=== PATIENT | male | born 1960 | race Caucasian/White ===

== ENCOUNTER 2019-02-26 16:24 | Outpatient (RCR) | payer OTHER, SELFPAY ==
[2019-02-26 17:01] LABS: INR 1.9
== END 2019-05-27 23:59 | disposition home or self-care (01) ==
LOC: CHSLAB 16:24
PROVIDERS: PCP Internal Medicine; Visit Provider Internal Medicine
DX: Z79.01 Long term (current) use of anticoagulants (principal)
CPT/HCPCS: 36415; 85610

== ENCOUNTER 2019-06-28 08:05 | Outpatient (CLI) | payer OTHER, SELFPAY ==
[2019-06-28 08:18] LABS: Basophils Absolute Auto 0.08 K/mm3 (0.00-0.10); Basophils Percent Auto 1.7 % (0.0-1.0); Eosinophils Absolute Auto 0.27 K/mm3 (0.02-0.50); Eosinophils Percent Auto 5.7 % (1.0-6.0); Hematocrit 45.6 % (40.0-54.0); Hemoglobin 15.9 g/dL (14.0-18.0); Immature Granulocyte Absolute 0.01 K/mm3 (0.00-0.00); Immature Granulocyte Percent A 0.2 % (0.0-0.0); Lymphocytes Absolute Auto 1.53 K/mm3 (1.10-4.50); Lymphocytes Percent Auto 32.4 % (18.0-42.0); Mean Corpuscular HGB Conc 34.9 g/dL (32.0-36.0); Mean Corpuscular Volume 91.8 fL (78.0-102.0); Mean Platelet Volume 11.2 fl (8.7-11.0); Monocytes Absolute Auto 0.43 K/mm3 (0.10-0.90); Monocytes Percent Auto 9.1 % (2.0-11.0); Neutrophils Absolute Auto 2.4 K/mm3 (1.7-7.2); Neutrophils Percent Auto 50.9 % (50.0-70.0); Platelet Count Result 224 K/mm3 (150-420); Red Blood Count 4.97 M/mm3 (4.70-6.10); Red Cell Distribution Width 12.6 % (11.6-14.4); White Blood Count 4.7 K/mm3 (4.8-10.8)
[2019-06-28 08:25] LABS: Add Urine Microscopic? NO; Appearance Urine Clear (Clear); Bilirubin Urine Negative (Negative); Blood Urine Negative (Negative); Color Urine Yellow (Yellow); Glucose Urine UA Negative (Negative); Ketones Urine Negative (Negative); Leukocyte Esterase Ur Negative LEU/UL (Negative); Nitrate Urine Negative (Negative); Protein Urine Negative (Negative); Specific Grav Ur 1.025 (1.010-1.020); Urobilinogen Urine 0.2 mg/dL (0.2-1.0)
[2019-06-28 08:34] LABS: INR 1.9; Prothrombin Time 19.4 Seconds (9.64-11.0)
[2019-06-28 08:36] LABS: Hemoglobin A1C 6.8 % (<5.7)
[2019-06-28 08:44] LABS: Creatinine Urine 227.96 mg/dL (40-278)
[2019-06-28 08:49] LABS: MALB Creatinine Ratio 11.2 mg/g (0-30); Microalbumin Urine Random 25.6 mg/L
[2019-06-28 08:50] LABS: BNP 20.8 pg/mL (0-100)
[2019-06-28 09:15] LABS: Alanine Aminotransferase 79 U/L (16-63); Albumin Level 4.1 g/dL (3.4-5.0); Alkaline Phosphatase 52 U/L (46-116); Anion Gap 10.6 mmol/L (7-16); Aspartate Amino Transferase 34 U/L (15-37); Bilirubin,Total 0.4 mg/dL (0.00-1.00); Blood Urea Nitrogen 13 mg/dL (7-18); Calcium 8.8 mg/dL (8.5-10.1); Carbon Dioxide 30 mmol/L (21-32); Chloride 105 mmol/L (98-108); Cholesterol 122 mg/dL (0-200); Creatine Kinase 181 U/L (39-308); Estimated Glomerular Filt Rate > 60; Glucose 134 mg/dL (70-99); HDL Direct 38 mg/dL (40-60); LDL Cholesterol Calculated 67 mg/dL (<130); Osmolality Calculated 294 mOsm/kg (285-295); Potassium 4.6 mmol/L (3.5-5.1); Sodium 141 mmol/L (136-145); Total Protein 7.1 g/dL (6.4-8.2); Triglycerides 84 mg/dL (0-150)
== END 2019-06-28 08:06 | disposition home or self-care (01) ==
LOC: CHSLAB 08:08
PROVIDERS: PCP Internal Medicine; Visit Provider Internal Medicine
DX: R73.01 Impaired fasting glucose (principal); E78.5 Hyperlipidemia, unspecified; I11.0 Hypertensive heart disease with heart failure; I50.9 Heart failure, unspecified
CPT/HCPCS: 36415; 80053; 80061; 81003; 82043; 82550; 83036; 83880; 85025; 85610

== ENCOUNTER 2020-01-09 21:15 | Emergency (ER) | payer OTHER, SELFPAY ==
--- NOTE | ~2020-01-09 | CT_ITS ---
EXAMINATION: CT abdomen pelvis w con DATE: 01/09/2020 22:54 INDICATION: Right lower quadrant abdominal pain. TECHNIQUE: Computed tomography (CT) of the abdomen and pelvis was performed with 100 mL Omnipaque 350 intravenous contrast. Automated exposure control and iterative reconstruction technique were employe d. The dose-length product was 1013.95 mGy-cm. COMPARISON: CT abdomen and pelvis 03/06/2017 FINDINGS: The visualized portions of the lung bases demonstrate mild atelectasis. No pleural effusion . The heart size is normal. No pericardial effusion. The liver, gallbladder, spleen, pancreas, adrena l glands, and left kidney are normal. There is a delayed right-sided contrast nephrogram. There is ed saravanan around the right kidney. There is moderate right hydronephrosis and hydroureter. There is a 4 mm stone at right ureterovesicular junction. There are bilateral inguinal hernias containing fat. The pr ostate is mildly enlarged. There are no dilated loops of bowel. The appendix is normal. There are no pathologically enlarged lymph nodes. There is no free intraperitoneal fluid. There is mild thoracolum bar spondylosis. IMPRESSION: 1. 4 mm stone at right ureterovesicular junction with moderate right hydronephrosis and hydroureter. Reviewed, dictated and finalized at location A. IMPRESSION: 1. 4 mm stone at right ureterovesicular junction with moderate right hydronephr osis and hydroureter.
[2020-01-09 21:20] VITALS: BP 175/91; PULSE 60; RESP 20; TEMP 36.4; O2SAT 98
--- NOTE | 2020-01-09 21:37 | ECG_ITS ---
Measurements Intervals [place] Rate: 60 P: 65 NH: 153 QRS: 110 QRSD: 162 T: -36 QT: 415 QTc: 416 Interpretive Statements SINUS RHYTHM RIGHT AXIS DEVIATION LEFT BUNDLE BRANCH BLOCK ABNORMAL ECG Electronically Signed On 01-10-2020 7:06:43 CDT by Vinh Tafoya D.O.
[2020-01-09] MEDS: SODIUM CHLORIDE 0.9% IV 1,000 ML 999 ML IV CONT (21:46)
[2020-01-09] MEDS: ONDANSETRON INJ 4 MG/2 ML VIAL IV PUSH (21:46)
[2020-01-09] MEDS: MORPHINE SULFATE (*CRX) 4 MG/ML INJ IV PUSH (21:47)
[2020-01-09] MEDS: HYDROmorphone HCL INJ (*CRX) 2 MG/ML VIAL IV PUSH (22:08)
[2020-01-09 22:09] LABS: Basophils Absolute Auto 0.09 K/mm3 (0.00-0.10); Basophils Percent Auto 1.1 % (0.0-1.0); Eosinophils Absolute Auto 0.15 K/mm3 (0.02-0.50); Eosinophils Percent Auto 1.8 % (1.0-6.0); Hematocrit 44.6 % (40.0-54.0); Hemoglobin 14.9 g/dL (14.0-18.0); Immature Granulocyte Absolute 0.03 K/mm3 (0.00-0.00); Immature Granulocyte Percent A 0.4 % (0.0-0.0); Lymphocytes Absolute Auto 1.47 K/mm3 (1.10-4.50); Lymphocytes Percent Auto 17.5 % (18.0-42.0); Mean Corpuscular HGB Conc 33.4 g/dL (32.0-36.0); Mean Corpuscular Hemoglobin 31.4 pg (27.0-31.0); Mean Corpuscular Volume 94.1 fL (78.0-102.0); Monocytes Absolute Auto 0.54 K/mm3 (0.10-0.90); Monocytes Percent Auto 6.4 % (2.0-11.0); Neutrophils Absolute Auto 6.1 K/mm3 (1.7-7.2); Neutrophils Percent Auto 72.8 % (50.0-70.0); Platelet Count Result 223 K/mm3 (150-420); Red Blood Count 4.74 M/mm3 (4.70-6.10); Red Cell Distribution Width 12.6 % (11.6-14.4); White Blood Count 8.4 K/mm3 (4.8-10.8)
[2020-01-09 22:11] VITALS: BP 157/91; PULSE 69; RESP 18; O2SAT 96
[2020-01-09 22:23] LABS: Partial Thromboplastin Time 35.5 SEC (22.3-31.6); Prothrombin Time 20.4 Seconds (9.64-11.0)
[2020-01-09 22:28] LABS: Alanine Aminotransferase 80 U/L (16-63); Albumin Level 4.1 g/dL (3.4-5.0); Alkaline Phosphatase 49 U/L (46-116); Anion Gap 9 mmol/L (8-16); Aspartate Amino Transferase 42 U/L (15-37); Bilirubin,Total 0.4 mg/dL (0.00-1.00); Blood Urea Nitrogen 15 mg/dL (7-18); Calcium 8.8 mg/dL (8.5-10.1); Carbon Dioxide 26 mmol/L (21-32); Chloride 104 mmol/L (98-108); Estimated CRCL calculation 71 ml/min; Estimated Glomerular Filt Rate > 60; Glucose 147 mg/dL (70-99); Lactic Acid Reflex 1.6 mmol/L (0.4-2.0); Lipase 97 U/L (73-393); Osmolality Calculated 291 mOsm/kg (285-295); Sodium 139 mmol/L (136-145)
[2020-01-09 22:30] LABS: Troponin I < 0.02 ng/mL (0.00-0.056)
--- NOTE | 2020-01-09 23:21 | ED.ABDPAIN ---
HPI - Abdominal Pain General Chief Complaint: Abdominal Pain Stated Complaint: abd pain, back pain, groin pain Source: patient Limitations: no limitations History of Present Illness HPI narrative: This is a 59-year-old gentleman that presents with of right lower quadrant abdominal pain and discomfort that started earlier this evening that radiates into the right flank area with no fever or chills there is some nausea with no vomiting, there is currently no chest pain no chest pressure or tightness, no shortness of breath no diarrhea constipation no fever or chills. Pain started earlier this evening at about 5 in the evening and had intensified is a night went on and presented to the emergency department. MD elicited complaint: abdominal pain and flank pain Pertinent past history: none Onset (ago): hour(s) Pain Consistency: intermittent Location: R flank Severity: severe Pain scale (0-10): 10 Quality: sharp Radiation: R flank Migration to: R flank Exacerbating factors: nothing Associated symptoms: nausea Related Data Home Medications Medication Instructions Recorded Confirmed carvedilol 25 mg PO BID 01/09/20 01/09/20 digoxin 250 mcg PO DAILY 01/09/20 01/09/20 lisinopril 40 mg PO BID 01/09/20 01/09/20 omeprazole 20 mg PO BID 01/09/20 01/09/20 spironolactone 25 mg PO DAILY 01/09/20 01/09/20 warfarin 5 mg PO DAILY 01/09/20 01/09/20 Allergies Allergy/AdvReac Type Severity Reaction Status Date / Time No Known Allergies Allergy Unknown Unverified 11/28/02 09:45 Review of Systems Review of Systems: All systems reviewed & are unremarkable except as noted in HPI and below PMFSH Past Medical History Medical History Atrial fibrillation GERD (gastroesophageal reflux disease) HTN (hypertension) Exam Const: General: no acute distress Orientation/consciousness: patient oriented x3 HENMT: Head: normal to inspection Eyes: Conjunctivae: conjunctivae normal Pupils: Equal, round and reactive pupils present EOM: EOMs intact bilaterally Neck: Neck: normal visual inspection, no lymphadenopathy and no meningeal signs Chest: Chest palpation & inspection: normal inspection of the chest Resp: Effort & Inspection: normal respiratory effort Auscultation: clear to auscultation bilaterally Cardio: Rate: regular rate Rhythm: regular rhythm GI: GI Palp: Yes Soft to palpation Other: right lower quadrant pain and tenderness with palpation with radiation into his right flank area : General: Yes CVA tenderness Skin: General skin exam: normal color Rashes: no rashes Neuro: General: patient oriented x3, moves all extremities and no meningeal signs Course Course Emergency Course: reassessment patient after receiving morphine and Dilaudid his pain level is well controlled currently no nausea or vomiting. Discussed with family the finding of a 4 mm UVJ stone with some moderate hydronephrosis, and will administer Flomax and Norvasc. Vital Signs Vital signs: Vital Signs Temperature 36.4 C 01/09/20 21:20 Pulse Rate 60 01/09/20 21:20 Respiratory Rate 20 01/09/20 21:20 Blood Pressure 175/91 H 01/09/20 21:20 Pulse Oximetry 98 01/09/20 21:20 Temperature 36.4 C 01/09/20 21:20 Pulse Rate 69 01/09/20 22:11 Respiratory Rate 18 01/09/20 22:11 Blood Pressure 157/91 H 01/09/20 22:11 Pulse Oximetry 96 01/09/20 22:11 MDM - Abdominal Pain Lab Data Result diagrams: 01/09/20 21:55 01/09/20 21:55 Labs: Lab Results 01/09/20 01/09/20 01/09/20 Range/Units 21:55 21:55 21:55 WBC 8.4 (4.8-10.8) K/mm3 RBC 4.74 (4.70-6.10) M/mm3 Hgb 14.9 (14.0-18.0) g/dL Hct 44.6 (40.0-54.0) % MCV 94.1 (78.0-102.0) fL MCH 31.4 H (27.0-31.0) pg MCHC 33.4 (32.0-36.0) g/dL RDW 12.6 (11.6-14.4) % Plt Count 223 (150-420) K/mm3 MPV 11.0 (8.7-11.0) fl Immature Gran % (Auto) 0.4 H
[2020-01-09] MEDS: TAMSULOSIN HCL 0.4 MG CAPSULE PO (23:24)
[2020-01-09] MEDS: amLODIPine BESYLATE 5 MG TABLET PO (23:24)
[2020-01-09 23:29] VITALS: BP 150/91; PULSE 80; RESP 18; TEMP 36.7; O2SAT 96
== END 2020-01-09 23:40 | disposition home or self-care (01) ==
PROVIDERS: Emergency Provider Emergency Medicine; PCP Internal Medicine
DX: N20.1 Calculus of ureter (principal)
CPT/HCPCS: 36415; 74177; 80053; 83605; 83690; 84484; 85025; 85610; 85730; 93005; 96361; 96374; 96375; 99284; A9270; J1170; J2270; J2405; J7030; Q9965

== ENCOUNTER 2020-01-13 15:45 | Outpatient (RCR) | payer OTHER, SELFPAY ==
[2020-01-13 16:39] LABS: INR 1.4
== END 2020-04-12 23:59 | disposition home or self-care (01) ==
LOC: CHSLAB 15:45
PROVIDERS: PCP Internal Medicine; Visit Provider Internal Medicine
DX: Z79.01 Long term (current) use of anticoagulants (principal)
CPT/HCPCS: 36415; 85610

== ENCOUNTER 2020-01-14 07:02 | Outpatient (CLI) | payer OTHER, SELFPAY ==
[2020-01-14 07:27] LABS: Basophils Absolute Auto 0.11 K/mm3 (0.00-0.10); Basophils Percent Auto 1.7 % (0.0-1.0); Eosinophils Absolute Auto 0.21 K/mm3 (0.02-0.50); Eosinophils Percent Auto 3.3 % (1.0-6.0); Hematocrit 46.2 % (40.0-54.0); Hemoglobin 15.3 g/dL (14.0-18.0); Immature Granulocyte Absolute 0.02 K/mm3 (0.00-0.00); Immature Granulocyte Percent A 0.3 % (0.0-0.0); Lymphocytes Absolute Auto 1.41 K/mm3 (1.10-4.50); Mean Corpuscular HGB Conc 33.1 g/dL (32.0-36.0); Mean Corpuscular Hemoglobin 31.3 pg (27.0-31.0); Mean Corpuscular Volume 94.5 fL (78.0-102.0); Mean Platelet Volume 11.4 fl (8.7-11.0); Monocytes Absolute Auto 0.49 K/mm3 (0.10-0.90); Monocytes Percent Auto 7.7 % (2.0-11.0); Neutrophils Absolute Auto 4.2 K/mm3 (1.7-7.2); Platelet Count Result 217 K/mm3 (150-420); Red Blood Count 4.89 M/mm3 (4.70-6.10); Red Cell Distribution Width 12.4 % (11.6-14.4); White Blood Count 6.4 K/mm3 (4.8-10.8)
[2020-01-14 07:47] LABS: Creatinine Urine 136.95 mg/dL (40-278); MALB Creatinine Ratio 9.4 mg/g (0-30); Microalbumin Urine Random < 13.0 mg/L
[2020-01-14 07:51] LABS: Hemoglobin A1C 5.8 % (<5.7)
[2020-01-14 07:52] LABS: BNP 41.2 pg/mL (0-100)
[2020-01-14 08:22] LABS: Alanine Aminotransferase 56 U/L (16-63); Alkaline Phosphatase 52 U/L (46-116); Anion Gap 7 mmol/L (8-16); Aspartate Amino Transferase 16 U/L (15-37); Bilirubin,Total 0.3 mg/dL (0.00-1.00); Blood Urea Nitrogen 14 mg/dL (7-18); Calcium 8.9 mg/dL (8.5-10.1); Carbon Dioxide 29 mmol/L (21-32); Chloride 104 mmol/L (98-108); Cholesterol 129 mg/dL (0-200); Digoxin 0.7 ng/mL (0.9-2.0); Estimated Glomerular Filt Rate > 60; Glucose 117 mg/dL (70-99); HDL Direct 43 mg/dL (40-60); LDL Cholesterol Calculated 66 mg/dL (<130); Osmolality Calculated 291 mOsm/kg (285-295); Potassium 4.4 mmol/L (3.5-5.1); Prostate Specific Antigen 2.8 ng/mL (< OR = 4.0); Sodium 140 mmol/L (136-145); Total Protein 6.8 g/dL (6.4-8.2); Triglycerides 102 mg/dL (0-150)
== END 2020-01-14 07:03 | disposition home or self-care (01) ==
PROVIDERS: PCP Internal Medicine; Visit Provider Internal Medicine
DX: I50.9 Heart failure, unspecified (principal); E11.9 Type 2 diabetes mellitus without complications; I11.0 Hypertensive heart disease with heart failure; E78.2 Mixed hyperlipidemia; Z12.5 Encounter for screening for malignant neoplasm of prostate
CPT/HCPCS: 36415; 80053; 80061; 80162; 82043; 83036; 83880; 84153; 85025; G0103

== ENCOUNTER 2020-01-14 12:43 | Outpatient (CLI) | payer OTHER, SELFPAY ==
--- NOTE | ~2020-01-14 | US_ITS ---
US retroperitoneal comp 01/14/2020 13:09 Procedure: Ureteral stone Indication: KUB Comparison: 05/21/2012 Findings: Renal echotexture is normal bilaterally without hydronephrosis, contour deforming mass or r enal calculus. The right kidney measures 12 cm and left kidney measures 13 cm. Bladder within normal limits. Impression: 1: Unremarkable renal ultrasound. No stones, masses or hydronephrosis. Reviewed, dictated and finalized at location A. Impression: 1: Unremarkable renal ultrasound. No stones, masses or hydronephrosis.
== END 2020-01-14 12:44 | disposition home or self-care (01) ==
LOC: CHSIMG 12:44
PROVIDERS: PCP Internal Medicine; Visit Provider Internal Medicine
DX: N20.1 Calculus of ureter (principal)
CPT/HCPCS: 76770

== ENCOUNTER 2020-04-23 08:33 | Outpatient (CLI) | payer OTHER, SELFPAY ==
[2020-04-23 09:47] LABS: SARS-CoV-2 Ag Positive (Negative)
== END 2020-04-23 08:34 | disposition home or self-care (01) ==
LOC: CHSLAB 08:35
PROVIDERS: PCP Internal Medicine; Visit Provider Internal Medicine
DX: U07.1 COVID-19 (principal)
CPT/HCPCS: 87426

== ENCOUNTER 2020-05-08 10:42 | Outpatient (CLI) | payer OTHER, SELFPAY ==
--- NOTE | ~2020-05-08 | XR_ITS ---
EXAMINATION: XR chest 2V DATE: 05/08/2020 11:03 INDICATION: Cough. TECHNIQUE: Frontal and lateral views of the chest were obtained. COMPARISON: Chest 2 views 08/06/12 FINDINGS: The chest demonstrates clear lungs without pneumonia, pleural effusion, or pneumothorax. Th e heart size is normal. IMPRESSION: 1. No acute cardiopulmonary disease. Reviewed, dictated and finalized at location A. 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
[2020-05-08 10:56] LABS: Basophils Absolute Auto 0.06 K/mm3 (0.00-0.10); Basophils Percent Auto 1.1 % (0.0-1.0); Eosinophils Absolute Auto 0.16 K/mm3 (0.02-0.50); Eosinophils Percent Auto 2.8 % (1.0-6.0); Hematocrit 43.8 % (40.0-54.0); Hemoglobin 15.1 g/dL (14.0-18.0); Immature Granulocyte Absolute 0.03 K/mm3 (0.00-0.00); Immature Granulocyte Percent A 0.5 % (0.0-0.0); Lymphocytes Absolute Auto 1.33 K/mm3 (1.10-4.50); Lymphocytes Percent Auto 23.4 % (18.0-42.0); Mean Corpuscular HGB Conc 34.5 g/dL (32.0-36.0); Mean Corpuscular Hemoglobin 31.8 pg (27.0-31.0); Mean Corpuscular Volume 92.2 fL (78.0-102.0); Mean Platelet Volume 11.1 fl (8.7-11.0); Monocytes Absolute Auto 0.44 K/mm3 (0.10-0.90); Monocytes Percent Auto 7.7 % (2.0-11.0); Neutrophils Absolute Auto 3.7 K/mm3 (1.7-7.2); Neutrophils Percent Auto 64.5 % (50.0-70.0); Platelet Count Result 236 K/mm3 (150-420); Red Blood Count 4.75 M/mm3 (4.70-6.10); Red Cell Distribution Width 12.4 % (11.6-14.4); White Blood Count 5.7 K/mm3 (4.8-10.8)
[2020-05-08 11:11] LABS: Alanine Aminotransferase 58 U/L (16-63); Albumin Level 3.9 g/dL (3.4-5.0); Alkaline Phosphatase 58 U/L (46-116); Anion Gap 5 mmol/L (8-16); Aspartate Amino Transferase 20 U/L (15-37); Bilirubin,Total 0.4 mg/dL (0.00-1.00); Blood Urea Nitrogen 10 mg/dL (7-18); Calcium 8.8 mg/dL (8.5-10.1); Carbon Dioxide 32 mmol/L (21-32); Chloride 102 mmol/L (98-108); Estimated Glomerular Filt Rate > 60; Glucose 142 mg/dL (70-99); INR 1.9; Osmolality Calculated 289 mOsm/kg (285-295); Potassium 4.5 mmol/L (3.5-5.1); Prothrombin Time 20.7 Seconds (9.50-12.10); Sodium 139 mmol/L (136-145)
[2020-05-08 11:13] LABS: BNP 37 pg/mL (0-100)
== END 2020-05-08 10:43 | disposition home or self-care (01) ==
LOC: CHSLAB 10:44
PROVIDERS: PCP Internal Medicine; Visit Provider Internal Medicine
DX: U07.1 COVID-19 (principal); R05 Cough; I50.9 Heart failure, unspecified; Z79.01 Long term (current) use of anticoagulants
CPT/HCPCS: 36415; 71046; 80053; 83880; 85025; 85610

== ENCOUNTER 2020-09-17 07:30 | Outpatient (CLI) | payer OTHER, SELFPAY ==
[2020-09-17 07:47] LABS: Basophils Absolute Auto 0.09 K/mm3 (0.00-0.10); Basophils Percent Auto 1.6 % (0.0-1.0); Eosinophils Absolute Auto 0.18 K/mm3 (0.02-0.50); Eosinophils Percent Auto 3.3 % (1.0-6.0); Hematocrit 43.8 % (40.0-54.0); Hemoglobin 15.3 g/dL (14.0-18.0); Immature Granulocyte Absolute 0.02 K/mm3 (0.00-0.00); Immature Granulocyte Percent A 0.4 % (0.0-0.0); Lymphocytes Absolute Auto 1.42 K/mm3 (1.10-4.50); Lymphocytes Percent Auto 25.8 % (18.0-42.0); Mean Corpuscular HGB Conc 34.9 g/dL (32.0-36.0); Mean Corpuscular Hemoglobin 32.3 pg (27.0-31.0); Mean Corpuscular Volume 92.6 fL (78.0-102.0); Mean Platelet Volume 11.4 fl (8.7-11.0); Monocytes Absolute Auto 0.46 K/mm3 (0.10-0.90); Monocytes Percent Auto 8.3 % (2.0-11.0); Neutrophils Absolute Auto 3.3 K/mm3 (1.7-7.2); Neutrophils Percent Auto 60.6 % (50.0-70.0); Platelet Count Result 177 K/mm3 (150-420); Red Blood Count 4.73 M/mm3 (4.70-6.10); Red Cell Distribution Width 12.2 % (11.6-14.4); White Blood Count 5.5 K/mm3 (4.8-10.8)
[2020-09-17 07:51] LABS: Add Urine Microscopic? YES; Appearance Urine Clear (Clear); Bilirubin Urine Negative (Negative); Blood Urine Negative (Negative); Color Urine Yellow (Yellow); Glucose Urine UA Trace (Negative); Ketones Urine Negative (Negative); Leukocyte Esterase Ur Negative LEU/UL (Negative); Nitrate Urine Negative (Negative); Protein Urine Negative (Negative); Specific Grav Ur >= 1.030 (1.010-1.020); Urobilinogen Urine 0.2 mg/dL (0.2-1.0); pH Urine 5.5 (5.0-8.0)
[2020-09-17 07:58] LABS: WBC Urine None seen /hpf (0-3)
[2020-09-17 07:59] LABS: Bacteria Urine Trace /hpf; Hemoglobin A1C 6.7 % (<5.7); Mucus Urine Few /lpf; RBC Urine 0-2 /hpf (0-2)
[2020-09-17 08:02] LABS: INR 2.1; Prothrombin Time 21.6 Seconds (9.50-12.10)
[2020-09-17 08:14] LABS: MALB Creatinine Ratio 11.6 mg/g (0-30); Microalbumin Urine Random 18.8 mg/L
[2020-09-17 08:29] LABS: Alanine Aminotransferase 75 U/L (16-63); Albumin Level 3.8 g/dL (3.4-5.0); Alkaline Phosphatase 60 U/L (46-116); Anion Gap 9 mmol/L (8-16); Aspartate Amino Transferase 23 U/L (15-37); Bilirubin,Total 0.3 mg/dL (0.00-1.00); Blood Urea Nitrogen 12 mg/dL (7-18); Carbon Dioxide 25 mmol/L (21-32); Chloride 105 mmol/L (98-108); Cholesterol 125 mg/dL (0-200); Estimated Glomerular Filt Rate > 60; Glucose 167 mg/dL (70-99); HDL Direct 42 mg/dL (40-60); LDL Cholesterol Calculated 54 mg/dL (<130); Osmolality Calculated 291 mOsm/kg (285-295); Potassium 4.2 mmol/L (3.5-5.1); Sodium 139 mmol/L (136-145); Total Protein 6.6 g/dL (6.4-8.2); Triglycerides 144 mg/dL (0-150)
== END 2020-09-17 07:31 | disposition home or self-care (01) ==
LOC: CHSLAB 07:34
PROVIDERS: PCP Internal Medicine; Visit Provider Internal Medicine
DX: I10 Essential (primary) hypertension (principal); E11.65 Type 2 diabetes mellitus with hyperglycemia; I50.9 Heart failure, unspecified; Z79.01 Long term (current) use of anticoagulants
CPT/HCPCS: 36415; 80053; 80061; 81001; 82043; 83036; 85025; 85610

== ENCOUNTER 2020-10-16 08:53 | Outpatient (CLI) | payer OTHER, SELFPAY ==
--- NOTE | 2020-10-16 08:57 | ECHO_ITS ---
Patient Info Name: Fabricio Darnell Age: 60 years : 1960 Gender: Male Ht: 74 in Wt: 210 lbs BSA: 2.24 m2 HR: 79 bpm BP: 118 / 59 mmHg Heart Rhythm: Sinus Rhythm Technical Quality: Fair Exam Date: 10/16/2020 9:06 AM Exam Location: [facility] Patient Status: Outpatient Admit Date: 10/16/2020 Staff Ordering Physician: Jeronimo Mazariegos MD Clinical Asst: Na Harris RDCS Attending Provider: Jeronimo Mazariegos MD Referring Physician: Yair FRIEDMAN; Exam Type: CA echo dop color flow w con Study Info Indications I50.9 - Heart failure, unspecified Complete two-dimensional, color flow and Doppler transthoracic echocardiogram is performed with contrast to opacify the left ventricle and to improve the deliniation of the left ventricle endocardial borders. Strain analysis performed. Contrast/Agitated Saline Contrast/Ag. Saline: Definity Amount: 3.00 ml New IV Access: Antecubital Space and Left Site Condition: No extravasation, Site dressing applied and IV removed History/Risk Factors Hypertension: No Dyslipidemia: No Congenital Heart Disease (CHD): No Peripheral Arterial Disease (PAD): No Myocardial Infarction ([place]): No Chronic Lung Disease: No Obesity: No Renal Disease: No Congestive Heart Failure (CHF): No Cardiomyopathy/LV Systolic Dysfunction: No Diabetes Mellitus: No COPD: No Tobacco Use: Former Cerebrovascular Disease: No DVT Treatment: Warfarin Deep Vein Thrombosis (DVT): None Dialysis: None Frailty Scale (CSHA): 2: Well Cardiac Arrest: No Summary 1. Left ventricular chamber dimension is severely enlarged. 2. Definity contrast administered improved wall motion interpretation. 3. Left ventricular systolic function is severely reduced, estimated at 25-30%. 4. Left ventricular septal wall motion is abnormal with septal motion related to bundle branch block. 5. The left ventricular diastolic function is grade I diastolic dysfunction. 6. E/e' 9 is minimally elevated. 7. Global longitudinal strain is abnormal at -7.1%. 8. Left atrial chamber dimension is moderately enlarged. Left Ventricle Definity contrast administered improved wall motion interpretation. E/e' 9 is minimally elevated. Global longitudinal strain is abnormal at -7.1%. Left ventricular chamber dimension is severely enlarged. Left ventricular systolic function is severely reduced, estimated at 25-30%. Left ventricular septal wall motion is abnormal with septal motion related to bundle branch block. The left ventricular diastolic function is grade I diastolic dysfunction. Right Ventricle Right ventricular chamber dimension is normal. Right ventricular systolic function is normal. Left Atria Left atrial chamber dimension is moderately enlarged. Right Atria Right atrial chamber dimension is normal. Aortic Valve The aortic valve is trileaflet. There is no aortic valve stenosis. There is no aortic valve regurgitation. Pulmonic Valve There is no pulmonic regurgitation. Mitral Valve There is no mitral valve stenosis. There is no mitral valve regurgitation. Tricuspid Valve There is no tricuspid valve regurgitation. Pericardium/Pleural There is no pericardial effusion. Inferior Vena Cava Normal inferior vena cava with >50% collapse upon inspiration consistent with normal right atrial pressure, 5 mmHg. Aorta The aortic
== END 2020-10-16 08:54 | disposition home or self-care (01) ==
PROVIDERS: PCP Internal Medicine; Visit Provider Internal Medicine
DX: I50.9 Heart failure, unspecified (principal)
CPT/HCPCS: C8929

== ENCOUNTER 2020-12-29 10:03 | Observation (INO) | payer OTHER, SELFPAY ==
[2020-12-29] VITALS (38 sets, daily range): BP systolic 137–167; BP diastolic 63–89; PULSE 55–75; RESP 10–25; TEMP 36.6–36.7; O2SAT 97–100; BMI 27.6
--- NOTE | ~2020-12-29 | XR_ITS ---
EXAMINATION: XR chest 2V DATE: 12/29/2020 10:35 INDICATION: Left-sided chest pain TECHNIQUE: PA and lateral views of the chest are obtained. COMPARISON: 05/08/2020 FINDINGS: The lungs are free of acute opacities. There is no pleural effusion or pneumothorax. The ca rdiomediastinal silhouette is normal. There is mild thoracic spondylosis. IMPRESSION: 1. No acute cardiopulmonary abnormality. Reviewed, dictated and finalized at location B.
--- NOTE | ~2020-12-29 | CT_ITS ---
EXAMINATION: CT brain wo con EXAM DATE: 12/29/2020 15:20 INDICATION: Dizziness. TECHNIQUE: Spiral CT of the head was performed without contrast. Axial, coronal and sagittal images were reviewed. The dose-length product (DLP) for this examination was 605.33 mGy-cm. The exposure w as tailored according to patient size, and iterative reconstruction (ASIR) was used as additional dos e reduction technique. There is no prior study for comparison. FINDINGS: There is no acute intraparenchymal hemorrhage. Mild cerebral atrophy. No evidence of intrap arenchymal brain mass lesion. No evidence of acute infarction. There is no mass effect or midline s hift. The ventricles are normal in size. There are no extra-axial collections. There are no acute calvarial fractures. The orbits are unremarkable. Soft tissue is unremarkable. The visualized sinus es and mastoid air cells are well aerated. IMPRESSION: 1. No acute intracranial findings. Reviewed, dictated and finalized at location A.
--- NOTE | ~2020-12-29 | US_ITS ---
EXAMINATION: US carotid duplex BI DATE: 12/30/2020 09:06 INDICATION: Vertigo. TECHNIQUE: Grayscale, color Doppler, and pulsed Doppler images of the cervical carotid arteries were obtained. The degree of vessel stenosis is placed in one of the following categories: normal, <50%, 5 0-69%, >=70% but less than near-occlusion, near-occlusion, or total occlusion. Note that percent sten osis relative to normal distal artery lumen diameter is indirectly measured from velocity measurement s as described by Tono, et al. Radiology 2003; 229:340-346. COMPARISON: None. FINDINGS: RIGHT: The right common carotid artery (CCA) peak systolic velocity (PSV) is 81 cm/s. The right internal car otid artery (ICA) PSV is 69 cm/s. The right ICA end-diastolic velocity (EDV) is 15 cm/s. The right IC A/CCA PSV ratio is 0.8. Grayscale and color Doppler images yield an estimate of <50% diameter reducti on from plaque in the ICA. There is antegrade flow in the right vertebral artery. LEFT: The left CCA PSV is 114 cm/s. The left ICA PSV is 68 cm/s. The left ICA EDV is 7 cm/s. The left ICA/C CA PSV ratio is 0.6. Grayscale and color Doppler images yield an estimate of <50% diameter reduction from plaque in the ICA. There is antegrade flow in the left vertebral artery. IMPRESSION: 1. <50% stenosis in the right internal carotid artery. 2. <50% stenosis in the left internal carotid artery. Reviewed, dictated and finalized at location A.
--- NOTE | ~2020-12-29 | MR_ITS ---
EXAMINATION: MR brain/brain stem wo/w con DATE: 12/30/2020 08:49 INDICATION: Dizziness. Leg numbness. TECHNIQUE: Magnetic resonance imaging (MRI) of the brain and brainstem was performed without and with 19 mL MultiHance intravenous contrast. Sequences included sagittal and axial T1-weighted FSE, axial diffusion-weighted FS EPI, axial T2*-weighted GRE, axial T2-weighted FLAIR Propeller, and axial T2-we ighted Propeller. Postcontrast sequences included axial and coronal T1-weighted FSE. Apparent diffusi on coefficient (ADC) maps were created. COMPARISON: Head CT 12/29/2020 FINDINGS: There is no intracranial hemorrhage, acute infarction, or abnormal intracranial mass lesion . The ventricles are normal in size. There is mild mucosal thickening in the paranasal sinuses. The o rbits are normal. There are trace bilateral mastoid effusions. IMPRESSION: 1. Normal brain. Reviewed, dictated and finalized at location A. IMPRESSION: 1. Normal brain.
--- NOTE | 2020-12-29 10:05 | ECG_ITS ---
Measurements Intervals [place] Rate: 67 P: 66 [place]: 152 QRS: 9 QRSD: 154 T: 1 QT: 393 QTc: 416 Interpretive Statements SINUS RHYTHM WITH SINUS ARRHYTHMIA LEFT BUNDLE BRANCH BLOCK BASELINE ARTIFACT- II, III ABNORMAL ECG Electronically Signed On 12-30-2020 8:45:58 CDT by Vinh Tafoya D.O.
[2020-12-29 10:36] LABS: Basophils Absolute Auto 0.1 K/mm3 (0.0-0.1); Basophils Percent Auto 1.2 % (0.2-1.2); Eosinophils Absolute Auto 0.2 K/mm3 (0-0.3); Eosinophils Percent Auto 2.8 % (0-4.4); Hematocrit 45.4 % (42.0-52.0); Hemoglobin 15.8 g/dL (14.0-18.0); Immature Granulocyte Absolute 0.02 K/mm3 (0.00-0.031); Immature Granulocyte Percent A 0.3 % (0-0.5); Lymphocytes Absolute Auto 1.11 K/mm3 (0.9-3.2); Lymphocytes Percent Auto 18.4 % (18.3-44.2); Mean Corpuscular HGB Conc 34.8 g/dl (32-36); Mean Corpuscular Hemoglobin 32.2 pg (26-34); Mean Corpuscular Volume 92.7 fl (80-100); Mean Platelet Volume 11.1 fl (7.4-10.4); Monocytes Absolute Auto 0.4 K/mm3 (0.1-0.6); Monocytes Percent Auto 6.6 % (2.6-8.5); Neutrophils Absolute Auto 4.3 K/mm3 (1.3-6.7); Neutrophils Percent Auto 70.7 % (45.5-73.1); Platelet Count Result 198 k/mm3 (150-375); Red Cell Distribution Width 12.7 % (11.5-14.5)
[2020-12-29 10:53] LABS: INR 1.7; Partial Thromboplastin Time 35.6 SECONDS (22.3-36.8); Prothrombin Time 19.5 Seconds (11.1-14.7)
[2020-12-29 11:33] LABS: Anion Gap 8 mmol/L (8-16); Blood Urea Nitrogen 14 mg/dL (9-20); Calcium 9.2 mg/dL (8.4-10.2); Carbon Dioxide 24 mmol/L (22-30); Chloride 105 mmol/L (98-107); Estimated CRCL calculation 87 ml/min; Estimated Glomerular Filt Rate > 60; Glucose 195 mg/dL (65-110); Potassium 4.3 mmol/L (3.4-5.0); Sodium 137 mmol/L (137-145)
[2020-12-29 11:44] LABS: Troponin I 0.016 ng/mL (0.000-0.034)
[2020-12-29] MEDS: ASPIRIN 81 MG CHEWABLE TABLET 324 MG PO (12:40)
--- NOTE | 2020-12-29 13:05 | ED.GENADULT ---
HPI - General Adult General Chief complaint: Chest Pain Stated complaint: chest pain Time Seen by Provider: 12/29/20 11:53 History of Present Illness HPI narrative: Patient is a 60-year-old male who presents ER with multiple complaints. Reports around 9 AM he had an episode of dizziness persisted where he felt like he is unsteady. He then sat down and ate and after eating developed some brief chest pain that was sharp and nonradiating. He had no nausea or vomiting. Patient did have some mild shortness of breath. No diaphoresis. Dizziness continues associated with some tingling in his lower extremities. Denies slurred speech or focal weakness in arm or leg. He takes warfarin for atrial fibrillation. He follows with Dr. Wilson for cardiomyopathy with low ejection fraction and is being evaluated for pacemaker/defibrillator at [facility] but has yet to have an appointment. Related Data Home Medications Medication Instructions Recorded Confirmed carvedilol 25 mg PO BID 01/09/20 12/29/20 digoxin 250 mcg PO DAILY 01/09/20 12/29/20 lisinopril 40 mg PO BID 01/09/20 12/29/20 omeprazole 20 mg PO BID 01/09/20 12/29/20 spironolactone 25 mg PO DAILY 01/09/20 12/29/20 warfarin 5 mg PO DAILY 01/09/20 12/29/20 sacubitril-valsartan [Entresto] See Rx Instructions .ROUTE .COMPLEX 12/29/20 12/30/20 Allergies Allergy/AdvReac Type Severity Reaction Status Date / Time No Known Allergies Allergy Unknown Verified 12/29/20 18:29 Review of Systems Review of Systems: All systems reviewed & are unremarkable except as noted in HPI and below Constitutional: Constitutional: Denies chills, Denies fever(s) and Reports weakness ENT: Reports dizziness and Denies nasal congestion Comments: Chronic tinnitus Cardiovascular: Cardiovascular: Denies chest pain and Denies radiating jaw, neck or arm pain Respiratory: Respiratory: Denies cough, Reports dyspnea and Denies wheezing Gastrointestinal: Gastrointestinal: Denies abdominal pain, Denies nausea and Denies vomiting Neurologic: Denies syncope, Denies headache(s) and Denies focal weakness Comments: BLE tingling PMFSH Past Medical History Medical History (Updated 12/30/20 @ 08:20 by Julius Hudson MD) Benign prostatic hyperplasia Borderline diabetes Chronic anticoagulation Gastroesophageal reflux disease Hypertension Kidney stones Nonischemic cardiomyopathy Surgical History Surgical History (Updated 12/30/20 @ 00:01 by Joslyn Aguirre PA-C) History of appendectomy History of basal cell carcinoma excision History of cervical spinal surgery History of esophagogastroduodenoscopy (EGD) History of hernia repair Family History Family History Mother COPD (chronic obstructive pulmonary disease) Father Aneurysm Social History Social History (Updated 12/30/20 @ 00:03 by Joslyn Aguirre PA-C) Social History: Surrogate decision maker: Marie Darnell, spouse. Code status: Full code. Smoking status: Former smoker Tobacco type: cigarettes Alcohol intake: current Drinks per week: 10 Substance use: current Substance use type: marijuana Additional living arrangements comments: The patient lives in [place] with his . 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 Exam Narrative: GENERAL: Well-appearing, well-nourished, and in no acute distress. HEAD: Normocephalic, atraumatic. EYES: PERRL and EOMI. ENT: TMs normal bilaterally with your canals free of cerumen. CHEST: Clear to auscultation. No respiratory distress. HEART: Regular rate and rhythm. Normal peripheral pulses. ABDOMEN: Soft, nontender, nondistended. EXTREMITIES: Normal range of motion. No edema. SKIN: Warm, dry, no rash. NEURO: Alert and oriented x3. Decreased sharp touch to bilateral lower extremities beneath the shins. Normal [id number] testing and no upper or lower extremity drift. Clear speech witho
[2020-12-29 14:35] LABS: Troponin I 0.014 ng/mL (0.000-0.034)
[2020-12-29 17:00] LABS: Troponin I 0.019 ng/mL (0.000-0.034)
--- NOTE | 2020-12-29 17:30 | PM.IMHP ---
H&P: HPI History of Present Illness Date/Time: 12/29/20 17:30 Chief Complaint: Dizziness, chest discomfort. Narrative: This is a very pleasant 60-year-old male with nonischemic cardiomyopathy, borderline diabetes, and hypertension who presented to the emergency department earlier today via private vehicle for evaluation of dizziness and chest discomfort. He was in his usual state of health when he woke this morning and around 08:00 while at work he began to ?feel weird? with dizziness, which sounds more like vertigo as he describes feelings of losing his balance and staggering, though he goes on to say later in the interview that he felt lightheaded. He also reports having intermittent discomfort in his chest that he has a hard time describing though tells me that it frequently feels as though there is of fluttering or bubbling sensation in his mid chest, occasionally pressure-like discomfort. Additionally he reports mild tingling in both of his feet that have been present since this morning. He sees Dr. Wilson and was recently referred to an care transitions nurse at [facility] for consideration of pacemaker/defibrillator insertion, per patient report. He has also been recently started on Entresto due to an ejection fraction of around 25%. Patient reports having a negative nuclear stress test done several weeks ago. He has not had a syncopal episode. No orthopnea or lower extremity edema. He denies fever, chills, and sweats. No nausea or vomiting. He denies auditory visual changes and focal weakness. No facial droop, dysarthria, or dysphagia. Review of Systems Review of Systems: Twelve systems were reviewed with pertinent positives and negatives as per HPI. He denies headache. He has been having some discomfort in the left scapular region that he has a difficult time describing though he thinks it is musculoskeletal in nature. It seems to be worse with movement and sometimes deep inspiration though he is not tender to palpation on exam. Except as documented, all other systems were reviewed and are negative. [facility] Past Medical History Medical History (Updated 12/30/20 @ 00:09 by Joslyn Aguirre PA-C) Benign prostatic hyperplasia Borderline diabetes Chronic anticoagulation Gastroesophageal reflux disease Hypertension Kidney stones Nonischemic cardiomyopathy Surgical History Surgical History (Updated 12/30/20 @ 00:01 by Joslyn Aguirre PA-C) History of appendectomy History of basal cell carcinoma excision History of cervical spinal surgery History of esophagogastroduodenoscopy (EGD) History of hernia repair Family History Family History Mother COPD (chronic obstructive pulmonary disease) Father Aneurysm Social History Social History (Updated 12/30/20 @ 00:03 by Joslyn Aguirre PA-C) Social History: Surrogate decision maker: Marie Darnell, spouse. Code status: Full code. Smoking status: Former smoker Tobacco type: cigarettes Alcohol intake: current Drinks per week: 10 Substance use: current Substance use type: marijuana Additional living arrangements comments: The patient lives in [place] with his . 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 Meds Home Medications and Allergies Home Medications Medication Instructions Recorded Confirmed Type carvedilol 25 mg PO BID 01/09/20 12/29/20 History digoxin 250 mcg PO DAILY 01/09/20 12/29/20 History lisinopril 40 mg PO BID 01/09/20 12/29/20 History omeprazole 20 mg PO BID 01/09/20 12/29/20 History ondansetron HCl [Zofran] 4 mg PO Q6H PRN #10 tablet 01/09/20 12/29/20 Rx oxycodone-acetaminophen [Percocet] 1 tablet PO Q6H PRN #20 tablet 01/09/20 12/29/20 Rx spironolactone 25 mg PO DAILY 01/09/20 12/29/20 History tamsulosin [Flomax] 0.4 mg PO DAILY #7 cap 01/09/20 12/29/20 Rx warfarin 5 mg PO DAILY 01/09/20 12/29/20 History sacubitril-valsartan [Entresto] 49 tablet PO
--- NOTE | 2020-12-29 18:16 | ADMGEN ---
This patient, Fabricio Darnell, was admitted to [facility] Surg Room 311-01. Patient/family oriented to hospital policies and general routines including ID bracelet, bed and alarms, visiting hours, pain management, procedures, bathroom and other care routines, personal items, smoking policy, room service/diet, and visiting hours. Information on how to activate the Rapid Response Team has been discussed. Patient/Family are encouraged to report perceived risks to care and to ask questions if they do not understand what they are told or what they should do.
[2020-12-29 19:21] LABS: Hemoglobin A1C 6.7 % (<5.7)
[2020-12-29] MEDS: HYDROcodone/acetaminophen (*CRX) 5-325 MG TABLET 1 TAB PO (22:28)
[2020-12-30] VITALS (15 sets, daily range): BP systolic 136–150; BP diastolic 74–85; PULSE 59–84; RESP 16–18; TEMP 36.1–36.7; O2SAT 95–98
[2020-12-30 06:56] LABS: Hematocrit 45.3 % (42.0-52.0); Hemoglobin 15.4 g/dL (14.0-18.0); Mean Corpuscular Hemoglobin 31.5 pg (26-34); Mean Corpuscular Volume 92.6 fl (80-100); Mean Platelet Volume 11.8 fl (7.4-10.4); Platelet Count Result 167 k/mm3 (150-375); Red Blood Count 4.89 M/mm3 (4.6-6.20); Red Cell Distribution Width 12.5 % (11.5-14.5); White Blood Count 4.4 K/mm3 (4.5-10.0)
[2020-12-30 07:06] LABS: INR 1.6; Prothrombin Time 18.7 Seconds (11.1-14.7)
[2020-12-30 07:15] LABS: Alanine Aminotransferase 58 U/L (4-50); Albumin Level 4.1 g/dL (3.5-5.1); Alkaline Phosphatase 47 U/L (38-126); Anion Gap 7 mmol/L (8-16); Aspartate Amino Transferase 39 U/L (17-59); Bilirubin,Total 0.8 mg/dL (0.2-1.3); Blood Urea Nitrogen 13 mg/dL (9-20); Carbon Dioxide 27 mmol/L (22-30); Chloride 101 mmol/L (98-107); Estimated CRCL calculation 97 ml/min; Estimated Glomerular Filt Rate > 60; Glucose 118 mg/dL (65-110); Magnesium 1.9 mg/dL (1.6-2.3); Potassium 4.3 mmol/L (3.4-5.0); Sodium 135 mmol/L (137-145)
[2020-12-30 08:24] LABS: Glucose Point of Care 143 mg/dl (65-105)
--- NOTE | 2020-12-30 08:55 | PM.CNCAR ---
Assessment and Plan Assessment and plan (1) Chest discomfort: Code(s): R07.89 - Other chest pain Status: Acute Assessment and Plan: Patient presents with a multitude of symptoms and I wonder if some of this may be from anxiety, perhaps panic attacks. Many of the symptoms I think are noncardiac. Certainly he can have some exertional dyspnea and fatigue due to his cardiomyopathy. No known low blood pressures to account for any dizziness. Some of the of the symptoms are likely benign and noncardiac, augmented by anxiety. However on close questioning he was able to tell me that he does have chest tightness with activity associated with MEEKS. The patient has not had a cardiac catheterization since 2003. His stress test showed a fixed defect with no significant ischemia so we have not pursued that any further but it is, at this point since his sensatins have brought him to the hospital, reasonable to proceed with the heart catheterization. If his INR is reasonable tomorrow (less than 1.9) we can schedule it for tomorrow. Will hold his warfarin. (2) Dizziness: Code(s): R42 - Dizziness and giddiness Status: Acute Assessment and Plan: Dizziness, vertigo, lightheadedness, all likely noncardiac. Neuro workup negative. Check orthostatics. (3) Nonischemic cardiomyopathy: Code(s): I42.8 - Other cardiomyopathies Status: Acute Assessment and Plan: Patient has had a longstanding cardiomyopathy which has worsened recently. Currently working with Entresto, spironolactone, lisinopril and digoxin. Does have a LBBB and has an appointment to see electrophysiology to consider a biventricular ICD later in December. (4) HTN (hypertension): Code(s): I10 - Essential (primary) hypertension Status: Acute Assessment and Plan: Running a little high. (5) Chronic anticoagulation: Code(s): Z79.01 - [facility] (current) use of anticoagulants Status: Acute Assessment and Plan: Chronic anticoagulation for a remote non-STEMI which was thought to be cardioembolic. Sub therapeutic. History of Present Illness History of Present Illness Consult date/time: 12/30/20 08:55 Reason For Visit: stroke symptoms,dizziness,foot numbness Narrative: Date of service 12/30/2020 Mr. Fabricio Darnell is 60-year-old male whom I was asked to see at the request of the hospitalist for complaints of chest pain. He is also admitted with complaints of dizziness and tingling, and other complaints. I follow Mr. Darnell in off my office for his dilated cardiomyopathy and CHF. He has had a dilated cardiomyopathy since 11/08, thought to be viral when he presented with an NSTEMI (thought to be cardioembolic, on anticoagulation since then). His cardiac catheterization and was negative. His EF improved from 15-20% half to 39% but recently has declined again. Echo September 2020 showed EF 25-30%, severe LV enlargement and LV dysfunction, diastolic dysfunction and no significant valve disease. Lexiscan 11/2020 showed a fixed anteroseptal defect, no ischemia, severe LV enlargement and ejection fraction of 33%. His EMMA-inhibitor was changed to Entresto. He has a left bundle branch block and has been referred to Dr. Nando montesinos in [facility] for consideration of a Bi V ICD. He also has hypertension and diabetes. Mr. Darnell was at work yesterday, but not doing anything strenuous, when he started feeling dizzy and shaky. He says the feeling is hard to describe, but he started feeling ?weird? and it was hard to breathe. His skin was crawling, any felt like he could not take a whole breath. He then got shaky and dizzy, loss of balance, and lightheaded. He felt bubbles in his chest and and flutters. His work recommended that he come to the ER. On close questioning, when I asked h
[2020-12-30] MEDS: TAMSULOSIN HCL 0.4 MG CAPSULE PO (09:26)
[2020-12-30] MEDS: DIGOXIN 250 MCG TABLET PO (09:26)
[2020-12-30] MEDS: PANTOPRAZOLE 40 MG TABLET PO ×2 (09:26→16:40)
[2020-12-30] MEDS: carvediloL 25 MG TABLET PO ×2 (09:26→16:40)
[2020-12-30] MEDS: SPIRONOLACTONE 25 MG TABLET PO (09:26)
[2020-12-30 09:47] LABS: Digoxin 0.6 ng/mL (0.8-2.0)
[2020-12-30] MEDS: SACUBITRIL/VALSARTAN 49-51 MG TABLET 1 TABLET PO ×2 (10:06→20:21)
[2020-12-30 12:09] LABS: Glucose Point of Care 129 mg/dl (65-105)
--- NOTE | 2020-12-30 12:15 | PM.IMPN ---
Progress Note: A&P Assessment and Plan (1) Vertigo: Code(s): R42 - Dizziness and giddiness Status: Acute Assessment and Plan: Unclear if true vertigo versus lightheadedness. Plan for brain MRI today Carotid Doppler ultrasound Orthostatic vitals Q shift Fall precaution Continue to monitor symptoms (2) Chest discomfort: Code(s): R07.89 - Other chest pain Status: Acute Assessment and Plan: This is been an ongoing issue for the patient though to his knowledge he has no history of cardiac dysrhythmia. Nuclear stress test done several weeks ago was reportedly unremarkable. Monitor on telemetry overnight. Dr. Wilson consulted. (3) Nonischemic cardiomyopathy: Code(s): I42.8 - Other cardiomyopathies Status: Acute Assessment and Plan: He appears clinically compensated. Continue Entresto, beta-kingston, digoxin, and spironolactone. (4) Hypertension: Code(s): I10 - Essential (primary) hypertension Status: Acute Assessment and Plan: Blood pressures running in the 130 to 150 systolic. Will add amlodipine 5 mg daily and monitor. (5) Chronic anticoagulation: Code(s): Z79.01 - [facility] (current) use of anticoagulants Status: Acute Assessment and Plan: Has been on warfarin for over 20 years due to his cardiomyopathy. He denies history of cardiac dysrhythmia. Continue warfarin and monitor INR. (6) Diabetes mellitus: Code(s): E11.9 - Type 2 diabetes mellitus without complications Status: Acute Assessment and Plan: Random glucose today is 195. Hemoglobin A1c 6.7 This is a new diagnosis for him but he was pre-diabetic in past Initiate metformin 500 mg b.i.d., further outpatient follow-up family living educator consult Additional Plan Code status: Full code DVT prophylaxis: Warfarin Subjective Date/time seen: 12/30/20 12:15 No major events overnight. Hemodynamically stable. Afebrile. No new neurologic signs or symptoms. Review of Systems Review of Systems: All systems reviewed & are unremarkable except as noted in HPI and below Exam Narrative: Gen: Alert, NAD Abd: Soft, NT, ND Heart: RRR Lungs: CTAB Ext: No lower extremity edema Objective Data Vital Signs Vital Signs: Vital Signs - 24 hr 12/29/20 12:30 12/29/20 12:45 12/29/20 12:46 Temperature Pulse Rate 60 60 60 Respiratory Rate 19 16 17 Blood Pressure 138/78 Pulse Oximetry 97 99 98 12/29/20 13:00 12/29/20 13:15 12/29/20 13:30 Temperature Pulse Rate 56 L 66 55 L Respiratory Rate 16 20 16 Blood Pressure Pulse Oximetry 97 99 99 12/29/20 13:45 12/29/20 14:00 12/29/20 14:01 Temperature Pulse Rate 58 L 56 L 67 Respiratory Rate 18 17 16 Blood Pressure 144/84 H Pulse Oximetry 98 98 98 12/29/20 14:15 12/29/20 14:30 12/29/20 14:37 Temperature Pulse Rate 57 L 56 L 62 Respiratory Rate 18 16 Blood Pressure 147/77 H Pulse Oximetry 98 98 12/29/20 14:38 12/29/20 14:39 12/29/20 14:40 Temperature Pulse Rate 57 L 63 69 Respiratory Rate 17 Blood Pressure 147/77 H 153/74 H 150/79 H Pulse Oximetry 98 12/29/20 14:41 12/29/20 14:42 12/29/20 14:46 Temperature Pulse Rate 69 75 65 Respiratory Rate 14 16 25 H Blood Pressure 153/74 H 150/79 H Pulse Oximetry 99 12/29/20 15:00 12/29/20 15:01 12/29/20 15:25 Temperature Pulse Rate 59 L 59 L Respiratory Rate 17 17 15 Blood Pressure 137/82 Pulse Oximetry 98 97 98 12/29/20 15:26 12/29/20 15:30 12/29/20 16:05 Temperature Pulse Rate 58 L 58 L 62 Respiratory Rate 14 15 17 Blood Pressure 148/81 H Pulse Oximetry 100 99 98 12/29/20 16:15 12/29/20 16:30 12/29/20 16:45 Temperature Pulse Rate 62 59 L 62 Respiratory Rate 16 13 18 Blood Pressure Pulse Oximetry 99 99 99 12/29/20 17:18 12/29/20 17:30 12/29/20 18:00 Temperature 97.8 F Pulse Rate 65 64 64 Respiratory Rate 21 H 15 16 Blood Pressure 152/89
[2020-12-30] MEDS: amLODIPine BESYLATE 5 MG TABLET PO (12:58)
--- NOTE | 2020-12-30 15:44 | PC.NURSE ---
On 12/30/20, the student, Leah Champagne, provided care and completed [facility] documentation on this patient. I have reviewed the student's documentation and agree with the findings.
[2020-12-30 16:38] LABS: Glucose Point of Care 115 mg/dl (65-105)
[2020-12-30] MEDS: metFORMIN HCL 500 MG TABLET PO (16:40)
[2020-12-30] MEDS: HYDROcodone/acetaminophen (*CRX) 5-325 MG TABLET 1 TAB PO (20:31)
[2020-12-30 21:21] LABS: Glucose Point of Care 133 mg/dl (65-105)
[2020-12-31] VITALS (16 sets, daily range): BP systolic 118–151; BP diastolic 71–91; PULSE 55–80; RESP 12–17; TEMP 35.8–36.7; O2SAT 95–98
[2020-12-31 07:12] LABS: INR 1.2; Prothrombin Time 15.4 Seconds (11.1-14.7)
--- NOTE | 2020-12-31 08:39 | WPDHPUPDATE1 ---
History and Physical Update Update Date/Time: 12/31/20 08:39 History and Physical has been reviewed, including an updated exam of the patient. INR now 1.2. There are NO changes in the patient's condition. Risks, benefits, and alternatives have been discussed and questions answered. Patient agrees to proceed with procedure.
[2020-12-31 08:40] LABS: Glucose Point of Care 128 mg/dl (65-105)
--- NOTE | 2020-12-31 08:40 | WPDMODSED ---
Moderate Sedation Note-Pt Data Patient Data Diagnosis: Cardiomyopathy, chest pressure and MEEKS, dizziness, palpitations. History of non-STEMI thought to be cardioembolic, treated with warfarin. INR 1.2 today. Present Complaint: exertional chest tightness and MEEKS, stress test showed a fixed defect but patient has ongoing And progressive symptoms. Procedure to be performed/Plan: Conscious sedation Left heart catheterization Possible PCI Allergies Allergy/AdvReac Type Severity Reaction Status Date / Time No Known Allergies Allergy Unknown Verified 12/29/20 18:29 Home Medications Medication Instructions Recorded Confirmed Type carvedilol 25 mg PO BID 01/09/20 12/29/20 History digoxin 250 mcg PO DAILY 01/09/20 12/29/20 History lisinopril 40 mg PO BID 01/09/20 12/29/20 History omeprazole 20 mg PO BID 01/09/20 12/29/20 History ondansetron HCl [Zofran] 4 mg PO Q6H PRN #10 tablet 01/09/20 12/29/20 Rx oxycodone-acetaminophen [Percocet] 1 tablet PO Q6H PRN #20 tablet 01/09/20 12/29/20 Rx spironolactone 25 mg PO DAILY 01/09/20 12/29/20 History tamsulosin [Flomax] 0.4 mg PO DAILY #7 cap 01/09/20 12/29/20 Rx warfarin 5 mg PO DAILY 01/09/20 12/29/20 History sacubitril-valsartan [Entresto] See Rx Instructions .ROUTE .COMPLEX 12/29/20 12/30/20 History Current Medications: Active Medications Acetaminophen (Acetaminophen 325 Mg Tablet) 650 mg PO Q4H PRN PRN Reason: Mild Pain (1-3) or Fever Hydrocodone Bitart/Acetaminophen (Hydrocodone/Acetaminophen (*Crx) 5-325 Mg Tablet) 1 tab PO Q4H PRN PRN Reason: Pain Rated 4-6 Last Admin: 12/30/20 20:31 Dose: 1 tab Documented by: Amlodipine Besylate (Amlodipine Besylate 5 Mg Tablet) 5 mg PO QAM [facility] Last Admin: 12/30/20 12:58 Dose: 5 mg Documented by: Carvedilol (Carvedilol 25 Mg Tablet) [facility] [place] [place] Last Admin: 12/30/20 16:40 Dose: 25 mg Documented by: Dextrose (Dextrose 50% 25 Gm/50 Ml Syringe) 12.5 gm IV PUSH PRN PRN; Protocol PRN Reason: Hypoglycemia Digoxin (Digoxin 250 Mcg Tablet) 250 mcg PO DAILY [facility] Last Admin: 12/30/20 09:26 Dose: 250 mcg Documented by: Glucagon (Glucagon For Inj 1 Mg Vial) 1 mg IM PRN PRN; Protocol PRN Reason: Hypoglycemia Glucose (Glucose Oral Gel 15 Gm Of Glucse In 37.5 Gm Tube) 15 gm PO PRN PRN; Protocol PRN Reason: Hypoglycemia Dextrose (Dextrose 5% 1,000 Ml) 1,000 mls @ 100 mls/hr IVPB PRN PRN; Protocol PRN Reason: Hypoglycemia Sodium Chloride (Normal Saline Iv) 500 mls @ 100 mls/hr IV CONT .Q5H [facility] Insulin Aspart (Insulin Aspart (*Bkc) 100 Units/Ml) 2 - 5 units SUB-Q TIDWM [facility]; Protocol Last Admin: 12/30/20 16:38 Dose: Not Given Documented by: Metformin HCl (Metformin Hcl 500 Mg Tablet) 500 mg PO BIDWM [facility] Last Admin: 12/30/20 16:40 Dose: 500 mg Documented by: Morphine Sulfate (Morphine Sulfate (*Crx) 4 Mg/Ml Inj) 4 mg IV PUSH Q2H PRN PRN Reason: Pain Rated 7-10 Ondansetron HCl (Ondansetron Inj 4 Mg/2 Ml Vial) 4 mg IV PUSH Q4H PRN PRN Reason: Nausea Oxycodone/Acetaminophen (Oxycodone/Acetaminophen (*Crx) 5-325 Mg Tablet) 1 tablet PO Q6H PRN PRN Reason: pain rated 7-10 Pantoprazole Sodium (Pantoprazole 40 Mg Tablet) 40 mg PO BID [facility] Last Admin: 12/30/20 16:40 Dose: 40 mg Documented by: Sacubitril/Valsartan (Sacubitril/Valsartan 49-51 Mg Tablet) 1 tablet PO Q12HR [facility] Last Admin: 12/30/20 20:21 Dose: 1 tablet Documented by: Spironolactone (Spironolactone 25 Mg Tablet) 25 mg PO DAILY [facility] Last Admin: 12/30/20 09:26 Dose: 25 mg Documented by: Tamsulosin HCl (Tamsulosin Hcl 0.4 Mg Capsule) 0.4 mg PO DAILY [facility] Last Admin: 12/30/20 09:26 Dose: 0.4 mg Documented by: Sedation/Anesthesia: No previous sedation/anesthesia problems (including family history). [facility] Past Medical History Medical History Benign prostatic hyperplasia Borderline diabetes Chronic anticoagulation Gastroesophageal reflux disease Hypertension Kidney stones Nonischemic cardio
--- NOTE | 2020-12-31 09:43 | PM.OP ---
Procedure Note - Brief Procedure Note - Brief Date of procedure: 12/31/20 Pre-op diagnosis: stroke symptoms,dizziness,foot numbness Cardiomyopathy Procedure performed: conscious sedation Left heart catheterization Description of procedure: uneventful left heart catheterization right radial approach. Surgeon: Angelica Wilson MD Complications: No immediate complications Condition: stable Disposition: observation Findings: Normal coronary arteries Cardiomyopathy, 20-25%
--- NOTE | 2020-12-31 09:50 | P.PCNCC_ITS ---
Cardiac Cath Procedure Note Date of procedure:: 12/31/20 Performing physician:: Angelica Wilson MD Indication:: cardiomyopathy, chest tightness, fixed defect on stress test Brief clinical history:: Mr Darnell has had a dilated cardiomyopathy since 2003, thought to be viral when he presented with an NSTEMI (thought to be cardioembolic, cath negative, on anticoagulation since then). His EF improved from 15-20% to 39% but recently has declined again. Echo September 2020 showed EF 25-30%, severe LV enlargement and LV dysfunction, diastolic dysfunction and no significant valve disease. Lexiscan 11/2020 showed a fixed anteroseptal defect, no ischemia, severe LV enlargement and ejection fraction of 33%. His EMMA- inhibitor was changed to Entresto. He has a left bundle branch block and has been referred to Dr. Lemons in [facility] for consideration of a Bi V ICD. Patient was admitted with exertional chest tightness and MEEKS and I recommended a cardiac catheterization to re-evaluate for ischemic heart disease. Procedure Procedure performed:: Procedure: 1. Conscious sedation 2. Left heart catheterization 3. Selective Coronary angiography 4. Left ventriculography Sedation/Medication given:: Conscious sedation: The patient has no known prior history of adverse affects of conscious sedation. Oropharynx was clear. The patient is deemed a good candidate for conscious sedation. Conscious sedation began at: 8:43 a.m. Conscious sedation ended at: 9:30 a.m. Total conscious sedation time: 47 minutes Medications: Versed 1 mg, fentanyl 50 mcg IV push The patient had continuous hemodynamic monitoring, and was also continuously monitored by: Abdiel Del Castillo RN The patient tolerated conscious sedation well. Access site:: right radial Estimated blood loss:: 10 cc Procedure note:: Catheters: 5 Gabonese tapered arterial sheath, 5 Gabonese Marzena catheter, 5 Gabonese pigtail catheter Detailed procedure: After informed consent the patient brought to the cardiovascular lab director and the right radial area was prepped and draped in the usual fashion. After conscious sedation and local anesthesia the right radial artery was punctured and cannulated with the arterial sheath using the micropuncture technique. He was given nitroglycerin 250 mcg, were abnormal 2.5 mg and heparin 2500 mg intra- arterially and another 2500 mg of heparin IV. Selective Coronary angiography was performed with the coronary catheter in multiple projections. These were withdrawn. The pigtail catheter was advanced into the central circulation and left ventricle for pressure measurements and left ventriculography which was performed in the DOWD projection. This was withdrawn. Later the arterial sheath was removed and hemostasis was obtained using local pressure with an arterial band. The patient tolerated the procedure well with no complications. Findings:: Pressures: Aortic pressure 110/ 60 and LV pressure 110/10 mmHg Right coronary artery: Widely patent free of disease, dominant Left coronary artery: Widely patent, free of disease Left ventriculography: Severe left ventricular dysfunction, worse in the anterior septal segment, estimated ejection fraction 20-25% . Conclusion:: Normal coronary arteries Cardiomyopathy with severe left ventricular dysfunction, EF 20-25% Recommendations: Continue medical therapy, titrate Entresto, patient has been referred to EP for consideration of a Bi V ICD since he has an underlying left bundle branch block. Will discuss LifeVest while awaiting device implant.
--- NOTE | 2020-12-31 12:10 | PM.DS ---
DS: Admitting Diagnosis Discharge Date 12/31/2020 Admitting Diagnosis Dizziness DS: Discharge Diagnosis Discharge Diagnosis (1) Dizziness: Code(s): R42 - Dizziness and giddiness Status: Acute Assessment and Plan: Poorly described, not consistent with vertigo, not clearly lightheaded but more of an abnormal feeling may be related to stress that happens to him usually at work. Brain MRI and carotid Doppler US negative for significant findings Orthostatic vitals Q shift Fall precaution Continue to monitor symptoms (2) Chest discomfort: Code(s): R07.89 - Other chest pain Status: Acute Assessment and Plan: This is been an ongoing issue for the patient though to his knowledge he has no history of cardiac dysrhythmia. Nuclear stress test done several weeks ago was reportedly unremarkable. Monitor on telemetry overnight. Dr. Wilson consulted. (3) Nonischemic cardiomyopathy: Code(s): I42.8 - Other cardiomyopathies Status: Acute Assessment and Plan: He appears clinically compensated. Continue Entresto, beta-kingston, digoxin, and spironolactone. (4) Hypertension: Code(s): I10 - Essential (primary) hypertension Status: Acute Assessment and Plan: Blood pressures running in the 130 to 150 systolic. Entresto dose increased. 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 He denies history of cardiac dysrhythmia. Continue warfarin and monitor INR. (6) Diabetes mellitus: Code(s): E11.9 - Type 2 diabetes mellitus without complications Status: Acute Assessment and Plan: Random glucose today is 195. Hemoglobin A1c 6.7 This is a new diagnosis for him but he was pre-diabetic in past Would like to work on lifestyle modification, before initiation of medications, and further outpatient follow-up unit educator consult DS: Summary Hospital Course Hospital Course: This is a pleasant 60-year-old gentleman with past medical history of nonischemic cardiomyopathy, hypertension, type 2 diabetes mellitus ( recently diagnosed), BPH, and GERD, who presented to the emergency department on 12/29 for evaluation of dizziness. This is poorly described, not consistent with vertigo, but episodes of feeling unwell while usually at work, where he has to sit down and rest before returning to work, may be related to stress but unclear, not associated with syncope or presyncope. On presentation his vitals showed a blood pressure 149/77 heart rate 70, pulse ox 100% on room air, temperature 97.8?. Blood work showed a hemoglobin 15.8, WBC 6, platelets 198, INR 1.7, hemoglobin A1c 6.7, sodium 137, potassium 4.3, chloride 105, bicarb 24, anion gap 8, creatinine 0.9, BUN 14, calcium 9.2, troponin negative. He was admitted to the hospital for evaluation and monitoring. Chest x-ray showed no abnormalities. CT scan of the head showed no findings to explain his presentation. Brain MRI showed normal brain. Carotid Doppler ultrasound study showed no significant stenosis. He was visited by Cardiology, it was noted that he had history of dilated cardiomyopathy for years, thought to be viral in origin, however based on their evaluation, there was a question about exertional dyspnea to explain these episodes that he has at work, he subsequently underwent coronary angiogram 12/31 which showed normal coronaries, but decreased left ventricular function with an estimated ejection fraction 20-25%. It was recommended that his Entresto dose is increased, and will be set up for a LifeVest fitting in the office with follow up. he was monitored on telemetry in the hospital in showed no significant arrhythmias. His orthostatic vitals were checked and were negative. He did not have any further episodes of dizziness or lightheadedness
--- NOTE | 2020-12-31 12:10 | SUR.PHASEII ---
RIght radial artery puncture site without signs of bleeding or hematoma. All air removed from TR Band at 11:00. TR Band removed at 1200 - dry gauze and tegaderm drsg applied. Report given to ONESIMO Mccarthy. Transferred back to room 311 via stretcher with Andra Stoddard RN.
[2020-12-31] MEDS: carvediloL 25 MG TABLET PO (12:51)
[2020-12-31] MEDS: TAMSULOSIN HCL 0.4 MG CAPSULE PO (12:51)
[2020-12-31] MEDS: SPIRONOLACTONE 25 MG TABLET PO (12:51)
[2020-12-31] MEDS: metFORMIN HCL 500 MG TABLET PO (12:52)
[2020-12-31] MEDS: PANTOPRAZOLE 40 MG TABLET PO (12:52)
[2020-12-31] MEDS: DIGOXIN 250 MCG TABLET PO (12:53)
[2020-12-31 13:14] LABS: Glucose Point of Care 136 mg/dl (65-105)
--- NOTE | 2021-01-01 10:43 | PC.NURSE ---
[facility] pharmacy called regarding entresto. Insurance will not cover more than 2 pills in a [address] Dominguez who had received recommendation from Dr. Wilson regarding medication, so he asked if I could call her. Discuss medication with Dr. Wilson, she wants 1 tab BID for strength of 49/51. [facility] pharmacy notified.
== END 2020-12-31 14:25 | disposition home or self-care (01) ==
LOC: ANHED 13:19 → ANH3MEDSUR 17:35
PROVIDERS: Emergency Medicine; Internal Medicine Cardiovascular Disease; Physician Assistant; Admitting Provider Internal Medicine Nephrology; Emergency Provider Emergency Medicine; PCP Internal Medicine; Visit Provider Internal Medicine Nephrology
PROC: 4A023N7 Measurement of Cardiac Sampling and Pressure, Left Heart, Percutaneous Approach (ICD-10-PCS; CPT 93452; principal; 2020-12-31 08:30)
DX: R07.89 Other chest pain (principal); R42 Dizziness and giddiness; I42.9 Cardiomyopathy, unspecified; I10 Essential (primary) hypertension; E11.9 Type 2 diabetes mellitus without complications; Z79.01 Long term (current) use of anticoagulants; Z87.891 Personal history of nicotine dependence
CPT/HCPCS: 36415; 70450; 70553; 71046; 80048; 80053; 80162; 82948; 83036; 83735; 84484; 85025; 85027; 85610; 85730; 93005; 93458; 93880; 97161; 97165; 99285; A9270; A9577; C1769; C1887; C1894; G0378; J1644; J2250; J3010; J7040

== ENCOUNTER 2021-01-29 09:40 | Outpatient (CLI) | payer OTHER, SELFPAY ==
[2021-01-29 09:56] LABS: Basophils Absolute Auto 0.08 K/mm3 (0.00-0.10); Basophils Percent Auto 1.2 % (0.0-1.0); Eosinophils Absolute Auto 0.17 K/mm3 (0.02-0.50); Eosinophils Percent Auto 2.6 % (1.0-6.0); Hematocrit 46.1 % (40.0-54.0); Hemoglobin 16.1 g/dL (14.0-18.0); Immature Granulocyte Absolute 0.02 K/mm3 (0.00-0.00); Immature Granulocyte Percent A 0.3 % (0.0-0.0); Lymphocytes Absolute Auto 1.63 K/mm3 (1.10-4.50); Lymphocytes Percent Auto 24.9 % (18.0-42.0); Mean Corpuscular HGB Conc 34.9 g/dL (32.0-36.0); Mean Corpuscular Hemoglobin 32.3 pg (27.0-31.0); Mean Corpuscular Volume 92.4 fL (78.0-102.0); Mean Platelet Volume 11.7 fl (8.7-11.0); Monocytes Absolute Auto 0.49 K/mm3 (0.10-0.90); Monocytes Percent Auto 7.5 % (2.0-11.0); Neutrophils Absolute Auto 4.2 K/mm3 (1.7-7.2); Neutrophils Percent Auto 63.5 % (50.0-70.0); Platelet Count Result 197 K/mm3 (150-420); Red Blood Count 4.99 M/mm3 (4.70-6.10); Red Cell Distribution Width 12.2 % (11.6-14.4); White Blood Count 6.5 K/mm3 (4.8-10.8)
[2021-01-29 10:30] LABS: Anion Gap 10 mmol/L (8-16); Blood Urea Nitrogen 16 mg/dL (7-18); Calcium 8.8 mg/dL (8.5-10.1); Carbon Dioxide 27 mmol/L (21-32); Chloride 105 mmol/L (98-108); Estimated Glomerular Filt Rate > 60; Glucose 128 mg/dL (70-99); Osmolality Calculated 297 mOsm/kg (285-295); Potassium 4.2 mmol/L (3.5-5.1); Sodium 142 mmol/L (136-145)
[2021-01-29 10:44] LABS: SARS-CoV-2 RNA PCR Negative (Negative)
== END 2021-01-29 09:41 | disposition home or self-care (01) ==
LOC: CHSLAB 09:43
PROVIDERS: PCP Internal Medicine
DX: I44.7 Left bundle-branch block, unspecified (principal); Z20.822 Contact with and (suspected) exposure to COVID-19
CPT/HCPCS: 36415; 80048; 85025; C9803; U0003; U0005

== ENCOUNTER 2021-02-16 11:58 | Outpatient (RCR) | payer OTHER, SELFPAY ==
[2021-02-16 12:43] LABS: INR 1.9; Prothrombin Time 19.3 Seconds (9.50-12.10)
== END 2021-05-17 23:59 | disposition home or self-care (01) ==
LOC: CHSLAB 11:58
PROVIDERS: PCP Internal Medicine; Visit Provider Internal Medicine
DX: I50.9 Heart failure, unspecified (principal); Z79.01 Long term (current) use of anticoagulants
CPT/HCPCS: 36415; 85610

== ENCOUNTER 2021-03-22 07:37 | Outpatient (CLI) | payer OTHER, SELFPAY ==
[2021-03-22 07:54] LABS: Basophils Absolute Auto 0.09 K/mm3 (0.00-0.10); Basophils Percent Auto 1.6 % (0.0-1.0); Eosinophils Absolute Auto 0.19 K/mm3 (0.02-0.50); Eosinophils Percent Auto 3.4 % (1.0-6.0); Hematocrit 47.9 % (40.0-54.0); Hemoglobin 16.4 g/dL (14.0-18.0); Immature Granulocyte Absolute 0.01 K/mm3 (0.00-0.00); Immature Granulocyte Percent A 0.2 % (0.0-0.0); Lymphocytes Absolute Auto 1.42 K/mm3 (1.10-4.50); Lymphocytes Percent Auto 25.6 % (18.0-42.0); Mean Corpuscular HGB Conc 34.2 g/dL (32.0-36.0); Mean Corpuscular Hemoglobin 31.6 pg (27.0-31.0); Mean Corpuscular Volume 92.3 fL (78.0-102.0); Mean Platelet Volume 11.7 fl (8.7-11.0); Monocytes Absolute Auto 0.46 K/mm3 (0.10-0.90); Monocytes Percent Auto 8.3 % (2.0-11.0); Neutrophils Absolute Auto 3.4 K/mm3 (1.7-7.2); Neutrophils Percent Auto 60.9 % (50.0-70.0); Platelet Count Result 186 K/mm3 (150-420); Red Blood Count 5.19 M/mm3 (4.70-6.10); Red Cell Distribution Width 12.4 % (11.6-14.4); White Blood Count 5.6 K/mm3 (4.8-10.8)
[2021-03-22 08:07] LABS: Add Urine Microscopic? NO; Appearance Urine Clear (Clear); Bilirubin Urine Negative (Negative); Blood Urine Negative (Negative); Color Urine Yellow (Yellow); Glucose Urine UA Negative (Negative); Ketones Urine Negative (Negative); Leukocyte Esterase Ur Negative LEU/UL (Negative); Nitrate Urine Negative (Negative); Protein Urine Negative (Negative); Specific Grav Ur >= 1.030 (1.010-1.020); Urobilinogen Urine 0.2 mg/dL (0.2-1.0); pH Urine 5.5 (5.0-8.0)
[2021-03-22 08:08] LABS: INR 2.2; Prothrombin Time 22.5 Seconds (9.50-12.10)
[2021-03-22 08:17] LABS: Creatinine Urine 198.46 mg/dL (40-278); MALB Creatinine Ratio 18.5 mg/g (0-30); Microalbumin Urine Random 36.9 mg/L
[2021-03-22 08:52] LABS: Alanine Aminotransferase 53 U/L (16-63); Albumin Level 3.9 g/dL (3.4-5.0); Alkaline Phosphatase 61 U/L (46-116); Anion Gap 9 mmol/L (8-16); Aspartate Amino Transferase 19 U/L (15-37); Bilirubin,Total 0.5 mg/dL (0.00-1.00); Blood Urea Nitrogen 13 mg/dL (7-18); Calcium 8.7 mg/dL (8.5-10.1); Carbon Dioxide 28 mmol/L (21-32); Chloride 103 mmol/L (98-108); Cholesterol 141 mg/dL (0-200); Creatine Kinase 128 U/L (39-308); Estimated Glomerular Filt Rate > 60; Glucose 152 mg/dL (70-99); HDL Direct 48 mg/dL (40-60); LDL Cholesterol Calculated 73 mg/dL (<130); Osmolality Calculated 293 mOsm/kg (285-295); Potassium 4.6 mmol/L (3.5-5.1); Prostate Specific Antigen 3.3 ng/mL (< OR = 4.0); Sodium 140 mmol/L (136-145); Total Protein 6.8 g/dL (6.4-8.2); Triglycerides 99 mg/dL (0-150)
== END 2021-03-22 07:38 | disposition home or self-care (01) ==
LOC: CHSLAB 07:39
PROVIDERS: PCP Internal Medicine; Visit Provider Internal Medicine
DX: E11.9 Type 2 diabetes mellitus without complications (principal); Z79.01 Long term (current) use of anticoagulants; E78.5 Hyperlipidemia, unspecified; N39.0 Urinary tract infection, site not specified; Z12.5 Encounter for screening for malignant neoplasm of prostate
CPT/HCPCS: 36415; 80053; 80061; 81003; 82043; 82550; 83036; 84153; 85025; 85610; G0103

== ENCOUNTER 2021-06-28 13:03 | Outpatient (CLI) | payer OTHER, SELFPAY ==
[2021-06-28 13:55] LABS: Alanine Aminotransferase 60 U/L (16-63); Albumin Level 4.2 g/dL (3.4-5.0); Alkaline Phosphatase 52 U/L (46-116); Anion Gap 8 mmol/L (8-16); Aspartate Amino Transferase 22 U/L (15-37); Bilirubin,Total 0.5 mg/dL (0.00-1.00); Blood Urea Nitrogen 14 mg/dL (7-18); Calcium 9.3 mg/dL (8.5-10.1); Carbon Dioxide 30 mmol/L (21-32); Chloride 102 mmol/L (98-108); Digoxin 1.2 ng/mL (0.9-2.0); Estimated Glomerular Filt Rate > 60; Glucose 155 mg/dL (70-99); Osmolality Calculated 293 mOsm/kg (285-295); Potassium 4.5 mmol/L (3.5-5.1); Sodium 140 mmol/L (136-145); Total Protein 6.8 g/dL (6.4-8.2)
== END 2021-06-28 13:04 | disposition home or self-care (01) ==
LOC: CHSLAB 13:07
PROVIDERS: PCP Internal Medicine
DX: I42.0 Dilated cardiomyopathy (principal)
CPT/HCPCS: 36415; 80053; 80162

== ENCOUNTER 2021-07-23 01:27 | Day surgery (SDC) | payer OTHER, SELFPAY ==
[2021-07-19 15:57] VITALS: BMI 26.9
--- NOTE | 2021-07-21 12:53 | PC.NURSE ---
REVIEWED CHART WITH DR. CARLTON ANESTHESIA- NO FURTHER ORDERS, WILL PROCEED WITH PROCEDURE.
--- NOTE | 2021-07-23 08:34 | WPDANESEPPF ---
Anes - Initial Pre Proc Eval Procedure: Operation Date: 07/23/21 10:30 Proposed Procedures p Screening Colonoscopy - Ankit Werner MD Date/Time: 07/23/21 08:34 Surgeon: Ankit Werner MD Pre Op Diagnosis: hx of colon polyps, neoplasm screening Patient Data Age: 61 Gender: M Height: 1.88 m Weight: 95 kg Allergies Allergy/AdvReac Type Severity Reaction Status Date / Time polyethylene glycol Allergy Other Verified 07/23/21 09:40 Home Medications Medication Instructions Recorded Confirmed Type carvedilol 25 mg PO BID 01/09/20 07/23/21 History digoxin 250 mcg PO DAILY 01/09/20 07/23/21 History omeprazole 20 mg PO BID 01/09/20 07/23/21 History spironolactone 25 mg PO QPM 01/09/20 07/23/21 History apixaban [Eliquis] 5 mg PO BID 07/19/21 07/23/21 History metformin 1,000 mg PO QPM 07/19/21 07/19/21 History sacubitril-valsartan [Entresto] 1 tablet PO Q12HR 07/19/21 07/23/21 History Patient hx anesthesia problems: none Family hx anesthesia problems: none Results Review: All pre-operative results and documents have been reviewed as part of the pre-operative evaluation. [facility] Past Medical History Medical History (Updated 07/23/21 @ 08:39 by Selvin Doty MD) Atrial fibrillation Benign prostatic hyperplasia Borderline diabetes CAD (coronary artery disease) Chronic anticoagulation Diabetes mellitus Gastroesophageal reflux disease GERD (gastroesophageal reflux disease) HTN (hypertension) Hx of myocardial infarction Hypertension Kidney stones Nonischemic cardiomyopathy ef 20-25% Pacemaker Vertigo Surgical History Surgical History (Updated 07/23/21 @ 08:39 by Selvin Doty MD) AICD (automatic cardioverter/defibrillator) present History of appendectomy History of basal cell carcinoma excision History of cervical spinal surgery History of esophagogastroduodenoscopy (EGD) History of hernia repair Family History Family History Mother COPD (chronic obstructive pulmonary disease) Father Aneurysm Social History Social History (Updated 12/30/20 @ 15:23 by Angelica Wilson MD) Social History: Surrogate decision maker: Marie Darnell, spouse. Code status: Full code. 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 Living arrangements: with family Additional living arrangements comments: The patient lives in [place] with his . 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 Spiritual care concerns: No Anes - Eval Final PreProcedure Day of Procedure 07/23/21 08:34 Patient weight: overweight Heart: regular rate and rhythm Lungs: clear to auscultation and normal air movement Airway: Mallampati scale class II Neurological: alert and oriented Last oral intake: >/= 8 hours ASA classification: IV Emergent: no Anesthetic plan: proceed Anesthesia type and monitoring: general GIVS Results Review: All pre-operative results and documents have been reviewed as part of the pre-operative evaluation. Informed Consent: The patient's anesthetic plan and its attendant risks and benefits were discussed with the patient/family/POA. Questions were solicited and answers provided to the satisfaction of the patient/family/POA.
[2021-07-23 09:19] VITALS: BP 96/50; PULSE 43; RESP 18; TEMP 36.1; O2SAT 96
[2021-07-23] MEDS: LACTATED RINGERS 1,000 ML 150 ML IV CONT (09:35)
[2021-07-23 09:36] LABS: Glucose Point of Care 161 mg/dl (65-105)
--- NOTE | 2021-07-23 09:44 | PM.HPGS ---
History of Present Illness History of Present Illness Consent: Risks, benefits, and alternatives have been discussed and questions answered. Patient agrees to proceed with procedure. Chief complaint: hx of colon polyps, neoplasm screening Narrative: Fabricio Darnell is a 61 year old male here for screening colonoscopy, last one about 13 years ago. Review of Systems Constitutional: Constitutional: Denies headache(s) and Denies weakness Eyes: Eyes: Denies blurry vision ENT: Reports Normal hearing present, Denies headache(s) and Denies neck pain Cardiovascular: Cardiovascular: Denies chest pain and Denies dyspnea Respiratory: Respiratory: Denies dyspnea Gastrointestinal: Gastrointestinal: Reports no additional gastrointestinal complaints Genitourinary: Genitourinary: Denies dysuria Musculoskeletal: Musculoskeletal: Denies neck pain Integumentary/Breasts: Skin/Breast: Denies dry skin Neurologic: Reports Normal hearing present, Denies headache(s) and Denies weakness Psychiatric: Psychiatric: Denies anxiety Endocrine: Endocrine: Denies change in body appearance Hematologic/Lymphatic: Hematologic/Lymphatic: Denies easy bleeding Allergic/Immunologic: Allergic/Immunologic: Denies urticaria PMFSH Past Medical History Medical History (Updated 07/23/21 @ 09:46 by Ankit Werner MD) Atrial fibrillation Benign prostatic hyperplasia Borderline diabetes CAD (coronary artery disease) Chronic anticoagulation Colon cancer screening Diabetes mellitus Gastroesophageal reflux disease GERD (gastroesophageal reflux disease) HTN (hypertension) Hx of myocardial infarction Hypertension Kidney stones Nonischemic cardiomyopathy ef 20-25% Pacemaker Vertigo Surgical History Surgical History (Updated 07/23/21 @ 08:39 by Selvin Doty MD) AICD (automatic cardioverter/defibrillator) present History of appendectomy History of basal cell carcinoma excision History of cervical spinal surgery History of esophagogastroduodenoscopy (EGD) History of hernia repair Family History Family History Mother COPD (chronic obstructive pulmonary disease) Father Aneurysm Social History Social History (Updated 12/30/20 @ 15:23 by Angelica Wilson MD) Social History: Surrogate decision maker: Marie Darnell, spouse. Code status: Full code. 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 Living arrangements: with family Additional living arrangements comments: The patient lives in [place] with his . 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 Spiritual care concerns: No Meds Home Medications and Allergies Home Medications Medication Instructions Recorded Confirmed Type carvedilol 25 mg PO BID 01/09/20 07/23/21 History digoxin 250 mcg PO DAILY 01/09/20 07/23/21 History omeprazole 20 mg PO BID 01/09/20 07/23/21 History spironolactone 25 mg PO QPM 01/09/20 07/23/21 History apixaban [Eliquis] 5 mg PO BID 07/19/21 07/23/21 History metformin 1,000 mg PO QPM 07/19/21 07/19/21 History sacubitril-valsartan [Entresto] 1 tablet PO Q12HR 07/19/21 07/23/21 History Allergies Allergy/AdvReac Type Severity Reaction Status Date / Time polyethylene glycol Allergy Other Verified 07/23/21 09:40 Vital Signs Vital Signs - 24 hr 07/23/21 09:19 Temperature 97 F L Pulse Rate 43 L Respiratory Rate 18 Blood Pressure 96/50 L Pulse Oximetry 96 Exam Const: General: comfortable and no acute distress HENMT: General nose exam: Normal nares present Eyes: General: appearance
[2021-07-23 10:11] VITALS: BP 88/60; PULSE 70; RESP 14; O2SAT 97
[2021-07-23 10:21] VITALS: BP 96/62; PULSE 70; RESP 14; O2SAT 99
[2021-07-23 10:31] VITALS: BP 98/67; PULSE 71; RESP 14; O2SAT 99
== END 2021-07-23 10:41 | disposition home or self-care (01) ==
PROVIDERS: PCP Internal Medicine; Visit Provider Internal Medicine Gastroenterology
PROC: 0DJD8ZZ Inspection of Lower Intestinal Tract, Via Natural or Artificial Opening Endoscopic (ICD-10-PCS; CPT 45378; principal; 2021-07-23 10:30)
DX: Z12.11 Encounter for screening for malignant neoplasm of colon (principal); K57.30 Diverticulosis of large intestine without perforation or abscess without bleeding; K64.8 Other hemorrhoids; Z86.010 Personal history of colon polyps; I48.91 Unspecified atrial fibrillation; I25.10 Atherosclerotic heart disease of native coronary artery without angina pectoris; I10 Essential (primary) hypertension; I25.2 Old myocardial infarction; E11.9 Type 2 diabetes mellitus without complications; N40.0 Benign prostatic hyperplasia without lower urinary tract symptoms; I42.8 Other cardiomyopathies; K21.9 Gastro-esophageal reflux disease without esophagitis; Z95.810 Presence of automatic (implantable) cardiac defibrillator; Z87.891 Personal history of nicotine dependence; F12.90 Cannabis use, unspecified, uncomplicated; Z79.01 Long term (current) use of anticoagulants; Z79.84 Long term (current) use of oral hypoglycemic drugs
CPT/HCPCS: 45378; 82948; J2001; J2704; J7120

== ENCOUNTER 2021-09-28 07:17 | Outpatient (CLI) | payer OTHER, SELFPAY ==
[2021-09-28 07:38] LABS: Basophils Absolute Auto 0.08 K/mm3 (0.00-0.10); Basophils Percent Auto 1.3 % (0.0-1.0); Eosinophils Percent Auto 4.8 % (1.0-6.0); Hematocrit 45.4 % (40.0-54.0); Hemoglobin 15.5 g/dL (14.0-18.0); Immature Granulocyte Absolute 0.02 K/mm3 (0.00-0.00); Immature Granulocyte Percent A 0.3 % (0.0-0.0); Lymphocytes Absolute Auto 1.48 K/mm3 (1.10-4.50); Lymphocytes Percent Auto 23.9 % (18.0-42.0); Mean Corpuscular HGB Conc 34.1 g/dL (32.0-36.0); Mean Corpuscular Hemoglobin 31.9 pg (27.0-31.0); Mean Corpuscular Volume 93.4 fL (78.0-102.0); Mean Platelet Volume 11.6 fl (8.7-11.0); Monocytes Absolute Auto 0.54 K/mm3 (0.10-0.90); Monocytes Percent Auto 8.7 % (2.0-11.0); Neutrophils Absolute Auto 3.8 K/mm3 (1.7-7.2); Platelet Count Result 179 K/mm3 (150-420); Red Blood Count 4.86 M/mm3 (4.70-6.10); Red Cell Distribution Width 12.3 % (11.6-14.4); White Blood Count 6.2 K/mm3 (4.8-10.8)
[2021-09-28 08:02] LABS: Add Urine Microscopic? NO; Appearance Urine Clear (Clear); Bilirubin Urine Negative (Negative); Blood Urine Negative (Negative); Color Urine Yellow (Yellow); Glucose Urine UA Negative (Negative); Ketones Urine Negative (Negative); Leukocyte Esterase Ur Negative LEU/UL (Negative); Nitrate Urine Negative (Negative); Protein Urine Negative (Negative); Urobilinogen Urine 0.2 mg/dL (0.2-1.0)
[2021-09-28 08:10] LABS: Hemoglobin A1C 6.3 % (<5.7); MALB Creatinine Ratio 12.9 mg/g (0-30); Microalbumin Urine Random 20.8 mg/L
[2021-09-28 08:42] LABS: Alanine Aminotransferase 78 U/L (16-63); Albumin Level 3.9 g/dL (3.4-5.0); Alkaline Phosphatase 51 U/L (46-116); Anion Gap 6 mmol/L (8-16); Aspartate Amino Transferase 31 U/L (15-37); Bilirubin,Total 0.5 mg/dL (0.00-1.00); Blood Urea Nitrogen 17 mg/dL (7-18); Calcium 8.9 mg/dL (8.5-10.1); Carbon Dioxide 29 mmol/L (21-32); Chloride 102 mmol/L (98-108); Cholesterol 133 mg/dL (0-200); Estimated Glomerular Filt Rate > 60; Free T3 2.79 pg/mL (2.18-3.98); Free T4 Free Thyroxine 0.92 ng/dL (0.76-1.46); Glucose 131 mg/dL (70-99); HDL Direct 54 mg/dL (40-60); LDL Cholesterol Calculated 57 mg/dL (<130); NT Pro B Type Natriuretic Pept 129 pg/mL (0-125); Osmolality Calculated 287 mOsm/kg (285-295); Potassium 4.5 mmol/L (3.5-5.1); Prostate Specific Antigen 4.7 ng/mL (< OR = 4.0); Sodium 137 mmol/L (136-145); Thyroid Stimulating Hormone 3.05 uIU/mL (0.36-3.74); Triglycerides 109 mg/dL (0-150)
== END 2021-09-28 07:18 | disposition home or self-care (01) ==
LOC: CHSLAB 07:21
PROVIDERS: PCP Internal Medicine; Visit Provider Internal Medicine
DX: E78.2 Mixed hyperlipidemia (principal); I50.9 Heart failure, unspecified; E11.9 Type 2 diabetes mellitus without complications; E03.4 Atrophy of thyroid (acquired); N40.1 Benign prostatic hyperplasia with lower urinary tract symptoms; I10 Essential (primary) hypertension
CPT/HCPCS: 36415; 80053; 80061; 81003; 82043; 83036; 83880; 84153; 84439; 84443; 84481; 85025

== ENCOUNTER 2021-12-30 09:22 | Outpatient (CLI) | payer OTHER, SELFPAY ==
[2021-12-30 09:52] LABS: Alanine Aminotransferase 72 U/L (16-63); Alkaline Phosphatase 49 U/L (46-116); Anion Gap 9 mmol/L (8-16); Aspartate Amino Transferase 34 U/L (15-37); Bilirubin,Total 0.6 mg/dL (0.00-1.00); Blood Urea Nitrogen 14 mg/dL (7-18); Calcium 9.1 mg/dL (8.5-10.1); Carbon Dioxide 27 mmol/L (21-32); Chloride 100 mmol/L (98-108); Estimated Glomerular Filt Rate > 60; Glucose 137 mg/dL (70-99); Osmolality Calculated 284 mOsm/kg (285-295); Sodium 136 mmol/L (136-145)
[2022-01-02 11:27] LABS: PSA, Free 0.53 ng/mL; PSA, Total 2.2 ng/mL (<=4.0)
== END 2021-12-30 09:23 | disposition home or self-care (01) ==
LOC: CHSLAB 09:24
PROVIDERS: PCP Internal Medicine; Visit Provider Internal Medicine
DX: R97.20 Elevated prostate specific antigen [PSA] (principal); I50.9 Heart failure, unspecified
CPT/HCPCS: 36415; 80053; 84153; 84154

== ENCOUNTER 2022-03-31 16:42 | Emergency (ER) | payer OTHER, SELFPAY ==
[2022-03-31] VITALS (14 sets, daily range): BP systolic 138–163; BP diastolic 73–82; PULSE 90–100; RESP 16–37; TEMP 37.1–37.6; O2SAT 94–97
--- NOTE | ~2022-03-31 | CT_ITS ---
EXAMINATION: CTA chest PE protocol DATE: 03/31/2022 18:57 INDICATION: Shortness of breath. Elevated d-dimer. TECHNIQUE: Computed tomography angiography (CTA) of the chest was performed with 100 mL Omnipaque-350 intravenous contrast timed to evaluate the pulmonary arteries. Coronal maximum intensity projection 3D-reconstructions were created by the technologist. Automated exposure control and iterative reconst ruction technique were employed. Exam dose: 491.78 mGy-cm total exam DLP. COMPARISON: 03/31/2022 portable AP chest FINDINGS: There is diagnostic contrast enhancement of the pulmonary arteries and no evidence of pulmo nary embolism. Left ventricular muscular hypertrophy. Trace pericardial fluid. Pacemaker leads from right-sided transvenous pacemaker device are in the right atrium, right ventricl e and coronary sinus. No thoracic aortic aneurysm or dissection. No hilar or mediastinal mass lesion or lymphadenopathy. Mild discoid atelectasis or scarring in the posterior medial right lung base, right lower lobe. No pu lmonary infiltrate or consolidation. Diffuse hepatic steatosis. Included portions of the adrenal glands are unremarkable. Diffuse idiopathic skeletal hyperostosis of the thoracic spine. IMPRESSION: No evidence of pulmonary embolism Left ventricular hypertrophy Trace pericardial fluid Right-sided triple lead pacemaker device. Reviewed, dictated and finalized at Location A. Reviewed, dictated and finalized at location B. 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
--- NOTE | ~2022-03-31 | XR_ITS ---
EXAMINATION: XR chest 1V portable 03/31/2022 17:17 INDICATION: Covid positive. Fever. Increased shortness of breath with cough. PROCEDURE: AP portable chest COMPARISON: Comparison to multiple prior studies sequentially, with oldest reviewed study dated 12/10. FINDINGS: The lungs are clear. The cardiomediastinal silhouette is within normal limits. There are no pleural effusions. There is no pneumothorax suspected. Pacemaker leads in expected position. IMPRESSION: 1: NO ACUTE CARDIOPULMONARY DISEASE. Reviewed, dictated and finalized at location A. 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
--- NOTE | 2022-03-31 16:53 | ECG_ITS ---
Measurements Intervals [place] Rate: 101 P: 92 NV: 116 QRS: 269 QRSD: 152 T: 82 QT: 334 QTc: 435 Interpretive Statements ELECTRONIC VENTRICULAR PACEMAKER SINUS RHYTHM WITH ATRIAL SENSING AND VENTRICULAR PACING WITH PVCS THAT ARE APPROPRIATELY SENSED ABNORMAL RHYTHM ECG ELECTRONIC PACEMAKER IS NOTED Electronically Signed On 04-01-2022 7:54:45 WET END SUPERVISOR by Petr Anaya M.D.
[2022-03-31] MEDS: IPRATROPIUM 0.5 MG/ALBUTEROL SULFATE 2.5 MG AMPUL.NEB 3 ML INHALATION (17:11)
[2022-03-31 17:14] LABS: Basophils Absolute Auto 0.04 K/mm3 (0.00-0.10); Basophils Percent Auto 0.7 % (0.0-1.0); Eosinophils Absolute Auto 0.01 K/mm3 (0.02-0.50); Eosinophils Percent Auto 0.2 % (1.0-6.0); Hematocrit 45.2 % (40.0-54.0); Hemoglobin 15.4 g/dL (14.0-18.0); Immature Granulocyte Absolute 0.02 K/mm3 (0.00-0.00); Immature Granulocyte Percent A 0.4 % (0.0-0.0); Lymphocytes Absolute Auto 0.54 K/mm3 (1.10-4.50); Mean Corpuscular HGB Conc 34.1 g/dL (32.0-36.0); Mean Corpuscular Hemoglobin 31.8 pg (27.0-31.0); Mean Corpuscular Volume 93.4 fL (78.0-102.0); Mean Platelet Volume 11.6 fl (8.7-11.0); Monocytes Absolute Auto 0.62 K/mm3 (0.10-0.90); Monocytes Percent Auto 11.4 % (2.0-11.0); Neutrophils Absolute Auto 4.2 K/mm3 (1.7-7.2); Neutrophils Percent Auto 77.3 % (50.0-70.0); Platelet Count Result 161 K/mm3 (150-420); Red Blood Count 4.84 M/mm3 (4.70-6.10); Red Cell Distribution Width 12.2 % (11.6-14.4); White Blood Count 5.4 K/mm3 (4.8-10.8)
[2022-03-31 17:30] LABS: INR 1.1; Partial Thromboplastin Time 31.3 SEC (23.90-30.70); Prothrombin Time 11.8 Seconds (9.50-12.10)
[2022-03-31 17:34] LABS: D Dimer 1.98 mg/L (0.19-0.50)
[2022-03-31 17:37] LABS: Lactic Acid Reflex 0.8 mmol/L (0.4-2.0)
[2022-03-31 17:38] LABS: Alanine Aminotransferase 81 U/L (16-63); Alkaline Phosphatase 48 U/L (46-116); Anion Gap 10 mmol/L (8-16); Aspartate Amino Transferase 32 U/L (15-37); Bilirubin,Total 0.7 mg/dL (0.00-1.00); Blood Urea Nitrogen 12 mg/dL (7-18); Calcium 8.8 mg/dL (8.5-10.1); Carbon Dioxide 26 mmol/L (21-32); Chloride 102 mmol/L (98-108); Estimated CRCL calculation 74 ml/min; Estimated Glomerular Filt Rate > 60; Glucose 138 mg/dL (70-99); Magnesium 1.6 mg/dL (1.8-2.4); NT Pro B Type Natriuretic Pept 1025 pg/mL (0-125); Osmolality Calculated 287 mOsm/kg (285-295); Potassium 3.7 mmol/L (3.5-5.1); Sodium 138 mmol/L (136-145); Total Protein 7.2 g/dL (6.4-8.2)
[2022-03-31 18:50] LABS: Influenza Control Valid (Valid)
--- NOTE | 2022-03-31 19:13 | ED.SOB ---
HPI - SOB/Dyspnea General Chief Complaint: Shortness of Breath/Dyspnea Stated Complaint: covid Time Seen by Provider: 03/31/22 16:53 Source: patient and family Mode of arrival: ambulatory Limitations: no limitations History of Present Illness HPI Narrative: this is a 61-year-old gentleman diagnosed with COVID a by his primary care physician has a history of CHF and presents with cough congestion and some shortness of breath with no chest pain no fever chills no abdominal pain no nausea vomiting no diarrhea constipation. MD elicited complaint: shortness of breath Onset (ago): day(s) Related Data Home Medications Medication Instructions Recorded Confirmed carvedilol 25 mg tablet 25 mg PO BID 01/09/20 03/31/22 digoxin 250 mcg (0.25 mg) tablet 250 mcg PO DAILY 01/09/20 03/31/22 spironolactone 25 mg tablet 25 mg PO QPM 01/09/20 03/31/22 apixaban 5 mg tablet (Eliquis) 5 mg PO BID 07/19/21 03/31/22 metformin 500 mg tablet,extended 1,000 mg PO QPM 07/19/21 03/31/22 release 24 hr sacubitril 49 mg-valsartan 51 mg 1 tablet PO Q12HR 07/19/21 03/31/22 tablet (Entresto) aspirin 81 mg chewable tablet 81 mg PO DAILY 03/31/22 03/31/22 tamsulosin 0.4 mg capsule 0.4 mg PO DAILY 03/31/22 03/31/22 Allergies Allergy/AdvReac Type Severity Reaction Status Date / Time polyethylene glycol Allergy Other Verified 03/31/22 16:55 Review of Systems Review of Systems: All systems reviewed & are unremarkable except as noted in HPI and below PMFSH Past Medical History Medical History Atrial fibrillation Benign prostatic hyperplasia Borderline diabetes CAD (coronary artery disease) Chronic anticoagulation Colon cancer screening Diabetes mellitus Gastroesophageal reflux disease GERD (gastroesophageal reflux disease) HTN (hypertension) Hx of myocardial infarction Hypertension Kidney stones Nonischemic cardiomyopathy ef 20-25% Pacemaker Vertigo Surgical History Surgical History AICD (automatic cardioverter/defibrillator) present History of appendectomy History of basal cell carcinoma excision History of cervical spinal surgery History of esophagogastroduodenoscopy (EGD) History of hernia repair Family History Family History Mother COPD (chronic obstructive pulmonary disease) Father Aneurysm Social History Social History Social History: Surrogate decision maker: Marie Darnell, spouse. Code status: Full code. 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 Additional living arrangements comments: The patient lives in [place] with his . 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 Spiritual care concerns: No Exam Const: General: no acute distress Limitations: no limitations HENMT: Head: normal to inspection Face/Nose/Sinus: Normal external nose present Face and sinus: normal facial exam Eyes: Conjunctivae: conjunctivae normal EOM: EOMs intact bilaterally Direct Ophthalmoscopy: no photophobia Neck: Neck: normal visual inspection Chest: Chest palpation & inspection: normal inspection of the chest Resp: Effort & Inspection: normal respiratory effort Auscultation: clear to auscultation bilaterally Cardio: Rate: regular rate Rhythm: regular rhythm GI: GI Palp: Yes Soft to palpation Auscultation: normal bowel sounds : General: Yes bladder normal to palpation Urinary Catheter: Urinary Catheter: patent and draining Back/S
[2022-03-31] MEDS: ACETAMINOPHEN 500 MG TABLET 1000 MG PO (19:49)
--- NOTE | 2022-03-31 19:54 | PC.NURSE ---
pt is flushed, hot to touch. temp 100.5f, erp is notified and medications given as ordered without difficulty. nad noted. pt up to urinal without difficulty. at bedside. will continue to monitor. pt and verbalized understanding of dc instructions.
--- NOTE | 2022-04-07 00:50 | PC.NURSE ---
FINAL BLOOD CULTURE RESULTS X2 : NO GROWTH AFTER 5 DAYS. NO ACTION NEEDED.
== END 2022-03-31 20:15 | disposition home or self-care (01) ==
PROVIDERS: Emergency Provider Emergency Medicine; PCP Internal Medicine
DX: U07.1 COVID-19 (principal); J06.9 Acute upper respiratory infection, unspecified; R06.02 Shortness of breath
CPT/HCPCS: 36415; 71045; 71275; 80053; 83605; 83735; 83880; 84484; 85025; 85380; 85610; 85730; 87040; 87804; 93005; 96365; 99284; J0696; Q9967

== ENCOUNTER 2022-05-14 10:31 | Outpatient (CLI) | payer OTHER, SELFPAY ==
[2022-05-14 10:45] LABS: Basophils Absolute Auto 0.09 K/mm3 (0.00-0.10); Basophils Percent Auto 1.3 % (0.0-1.0); Eosinophils Absolute Auto 0.13 K/mm3 (0.02-0.50); Eosinophils Percent Auto 1.8 % (1.0-6.0); Hematocrit 43.9 % (40.0-54.0); Hemoglobin 15.7 g/dL (14.0-18.0); Immature Granulocyte Absolute 0.02 K/mm3 (0.00-0.00); Immature Granulocyte Percent A 0.3 % (0.0-0.0); Lymphocytes Absolute Auto 1.52 K/mm3 (1.10-4.50); Lymphocytes Percent Auto 21.3 % (18.0-42.0); Mean Corpuscular HGB Conc 35.8 g/dL (32.0-36.0); Mean Corpuscular Hemoglobin 33.5 pg (27.0-31.0); Mean Corpuscular Volume 93.6 fL (78.0-102.0); Mean Platelet Volume 10.7 fl (8.7-11.0); Monocytes Absolute Auto 0.44 K/mm3 (0.10-0.90); Monocytes Percent Auto 6.2 % (2.0-11.0); Neutrophils Absolute Auto 4.9 K/mm3 (1.7-7.2); Neutrophils Percent Auto 69.1 % (50.0-70.0); Platelet Count Result 249 K/mm3 (150-420); Red Blood Count 4.69 M/mm3 (4.70-6.10); Red Cell Distribution Width 12.9 % (11.6-14.4); White Blood Count 7.1 K/mm3 (4.8-10.8)
[2022-05-14 10:46] LABS: Add Urine Microscopic? NO; Appearance Urine Clear (Clear); Bilirubin Urine Negative (Negative); Blood Urine Negative (Negative); Color Urine Yellow (Yellow); Glucose Urine UA Negative (Negative); Ketones Urine Negative (Negative); Leukocyte Esterase Ur Negative LEU/UL (Negative); Nitrate Urine Negative (Negative); Protein Urine Negative (Negative); Specific Grav Ur >= 1.030 (1.010-1.020); Urobilinogen Urine 0.2 mg/dL (0.2-1.0); pH Urine 5.5 (5.0-8.0)
[2022-05-14 10:57] LABS: Creatinine Urine 205.04 mg/dL (40-278); MALB Creatinine Ratio 16.7 mg/g (0-30); Microalbumin Urine Random 34.3 mg/L
[2022-05-14 11:00] LABS: Hemoglobin A1C 6.5 % (<5.7)
[2022-05-14 11:20] LABS: Alanine Aminotransferase 94 U/L (16-63); Albumin Level 4.1 g/dL (3.4-5.0); Alkaline Phosphatase 46 U/L (46-116); Anion Gap 9 mmol/L (8-16); Aspartate Amino Transferase 36 U/L (15-37); Bilirubin,Total 0.5 mg/dL (0.00-1.00); Blood Urea Nitrogen 10 mg/dL (7-18); Calcium 8.8 mg/dL (8.5-10.1); Carbon Dioxide 27 mmol/L (21-32); Chloride 108 mmol/L (98-108); Cholesterol 124 mg/dL (0-200); Creatine Kinase 95 U/L (39-308); Estimated Glomerular Filt Rate > 60; Glucose 115 mg/dL (70-99); HDL Direct 50 mg/dL (40-60); LDL Cholesterol Calculated 36 mg/dL (<130); NT Pro B Type Natriuretic Pept 316 pg/mL (0-125); Osmolality Calculated 298 mOsm/kg (285-295); Potassium 4.4 mmol/L (3.5-5.1); Prostate Specific Antigen 4.9 ng/mL (< OR = 4.0); Sodium 144 mmol/L (136-145); Total Protein 6.8 g/dL (6.4-8.2); Triglycerides 188 mg/dL (0-150)
== END 2022-05-14 10:32 | disposition home or self-care (01) ==
LOC: CHSLAB 10:33
PROVIDERS: PCP Internal Medicine; Visit Provider Internal Medicine
DX: E11.9 Type 2 diabetes mellitus without complications (principal); I10 Essential (primary) hypertension; E78.2 Mixed hyperlipidemia; N39.0 Urinary tract infection, site not specified; R97.20 Elevated prostate specific antigen [PSA]; I50.9 Heart failure, unspecified
CPT/HCPCS: 36415; 80053; 80061; 81003; 82043; 82550; 83036; 83880; 84153; 85025

== ENCOUNTER 2022-11-04 09:01 | Outpatient (CLI) | payer OTHER, SELFPAY ==
[2022-11-04 09:21] LABS: Basophils Absolute Auto 0.08 K/mm3 (0.00-0.10); Basophils Percent Auto 1.5 % (0.0-1.0); Eosinophils Absolute Auto 0.18 K/mm3 (0.02-0.50); Eosinophils Percent Auto 3.3 % (1.0-6.0); Hematocrit 46.3 % (40.0-54.0); Hemoglobin 16.1 g/dL (14.0-18.0); Immature Granulocyte Absolute 0.02 K/mm3 (0.00-0.00); Immature Granulocyte Percent A 0.4 % (0.0-0.0); Lymphocytes Absolute Auto 1.48 K/mm3 (1.10-4.50); Lymphocytes Percent Auto 27.4 % (18.0-42.0); Mean Corpuscular HGB Conc 34.8 g/dL (32.0-36.0); Mean Corpuscular Hemoglobin 33.3 pg (27.0-31.0); Mean Corpuscular Volume 95.7 fL (78.0-102.0); Monocytes Percent Auto 7.4 % (2.0-11.0); Neutrophils Absolute Auto 3.3 K/mm3 (1.7-7.2); Platelet Count Result 209 K/mm3 (150-420); Red Blood Count 4.84 M/mm3 (4.70-6.10); Red Cell Distribution Width 12.9 % (11.6-14.4); White Blood Count 5.4 K/mm3 (4.8-10.8)
[2022-11-04 09:22] LABS: Appearance Urine Clear (Clear); Bilirubin Urine Negative (Negative); Blood Urine Negative (Negative); Color Urine Light Yellow (Yellow); Glucose Urine UA Negative (Negative); Ketones Urine Negative (Negative); Leukocyte Esterase Ur Trace (Negative); Nitrate Urine Negative (Negative); Protein Urine Negative (Negative); Specific Grav Ur 1.015 (1.010-1.020); Urobilinogen Urine 0.2 mg/dL (0.2-1.0)
[2022-11-04 09:27] LABS: Add Urine Microscopic? YES; Bacteria Urine None seen /hpf; RBC Urine None seen /hpf (0-2); WBC Urine None seen /hpf (0-3)
[2022-11-04 09:35] LABS: Hemoglobin A1C 6.3 % (<5.7)
[2022-11-04 09:39] LABS: Creatinine Urine 101.98 mg/dL (40-278); MALB Creatinine Ratio 29.2 mg/g (0-30); Microalbumin Urine Random 29.8 mg/L
[2022-11-04 10:01] LABS: Alanine Aminotransferase 106 U/L (16-63); Albumin Level 4.1 g/dL (3.4-5.0); Alkaline Phosphatase 50 U/L (46-116); Anion Gap 11 mmol/L (8-16); Aspartate Amino Transferase 43 U/L (15-37); Bilirubin,Total 0.5 mg/dL (0.00-1.00); Blood Urea Nitrogen 10 mg/dL (7-18); Calcium 9.2 mg/dL (8.5-10.1); Carbon Dioxide 26 mmol/L (21-32); Chloride 104 mmol/L (98-108); Cholesterol 131 mg/dL (0-200); Creatine Kinase 182 U/L (39-308); Estimated Glomerular Filt Rate > 60; Glucose 120 mg/dL (70-99); HDL Direct 54 mg/dL (40-60); LDL Cholesterol Calculated 54 mg/dL (<130); NT Pro B Type Natriuretic Pept 143 pg/mL (0-125); Osmolality Calculated 292 mOsm/kg (285-295); Potassium 4.4 mmol/L (3.5-5.1); Sodium 141 mmol/L (136-145); Triglycerides 113 mg/dL (0-150)
== END 2022-11-04 09:02 | disposition home or self-care (01) ==
LOC: CHSLAB 09:03
PROVIDERS: PCP Internal Medicine; Visit Provider Internal Medicine
DX: I42.9 Cardiomyopathy, unspecified (principal); I10 Essential (primary) hypertension; E11.9 Type 2 diabetes mellitus without complications; E78.2 Mixed hyperlipidemia; R97.20 Elevated prostate specific antigen [PSA]
CPT/HCPCS: 36415; 80053; 80061; 81001; 82043; 82550; 83036; 83880; 85025

== ENCOUNTER 2022-12-01 07:17 | Outpatient (CLI) | payer OTHER, SELFPAY ==
--- NOTE | ~2022-12-01 | US_ITS ---
Limited Abdominal Sonogram: Real-time sonographic imaging of the right upper quadrant was performed. Clinical History: Elevated liver enzymes Findings: The liver appears echogenic, with no evidence of mass lesion or bile duct dilatation. Main portal vein demonstrates normal direction of flow. The gallbladder is well distended, and contains a small gallstone. No gallbladder wall thickening. The common bile duct measures 4 mm. The visualized pancreas, aorta, and IVC are unremarkable. Impression: Diffuse fatty infiltration of the liver. Small gallstone. Reviewed, dictated and finalized at location M. Impression: Diffuse fatty infiltration of the liver. Small gallstone.
[2022-12-01 08:47] LABS: Ferritin 768 ng/mL (26-388); GGT 86 U/L (15-85); Iron 74 ug/dL (65-175)
[2022-12-05 21:17] LABS: Mitochondrial (M2) Ab (IgG) <=20.0 U (<=20.0)
[2022-12-05 21:59] LABS: Actin Antibody (IgG) <20 U (<20)
[2022-12-06 13:24] LABS: Hepatitis B Surface Antibody Nonreactive (Nonreactive); Hepatitis C Virus Antibody Nonreactive
[2022-12-06 19:43] LABS: Ceruloplasmin 21 mg/dL (18-36)
== END 2022-12-01 07:18 | disposition home or self-care (01) ==
PROVIDERS: PCP Internal Medicine; Visit Provider Internal Medicine
DX: R74.01 Elevation of levels of liver transaminase levels (principal); K76.0 Fatty (change of) liver, not elsewhere classified; K80.20 Calculus of gallbladder without cholecystitis without obstruction
CPT/HCPCS: 36415; 76705; 82390; 82728; 82977; 83516; 83520; 83540; 86038; 86706; 86803

== ENCOUNTER 2023-03-09 13:02 | Outpatient (CLI) | payer OTHER, SELFPAY ==
[2023-03-09 13:58] LABS: Alanine Aminotransferase 92 U/L (16-63); Albumin Level 3.8 g/dL (3.4-5.0); Alkaline Phosphatase 54 U/L (46-116); Anion Gap 8 mmol/L (8-16); Aspartate Amino Transferase 36 U/L (15-37); Bilirubin,Total 0.4 mg/dL (0.00-1.00); Blood Urea Nitrogen 14 mg/dL (7-18); Calcium 8.8 mg/dL (8.5-10.1); Carbon Dioxide 30 mmol/L (21-32); Chloride 104 mmol/L (98-108); Estimated Glomerular Filt Rate > 60; Glucose 143 mg/dL (70-99); Osmolality Calculated 296 mOsm/kg (285-295); Sodium 142 mmol/L (136-145)
[2023-03-10 15:30] LABS: Hemoglobin A1C 5.9 % (<5.7)
== END 2023-03-09 13:03 | disposition home or self-care (01) ==
LOC: CHSLAB 13:04
PROVIDERS: PCP Internal Medicine; Visit Provider Internal Medicine
DX: R94.5 Abnormal results of liver function studies (principal); R73.01 Impaired fasting glucose
CPT/HCPCS: 36415; 80053; 83036

== ENCOUNTER 2023-05-27 07:45 | Outpatient (CLI) | payer OTHER, SELFPAY ==
[2023-05-27 08:11] LABS: Appearance Urine Clear (Clear); Bilirubin Urine Negative (Negative); Blood Urine Negative (Negative); Color Urine Light Yellow (Yellow); Glucose Urine UA Negative (Negative); Ketones Urine Negative (Negative); Leukocyte Esterase Ur 2+ LEU/UL (Negative); Nitrate Urine Negative (Negative); Protein Urine Negative (Negative); Specific Grav Ur >= 1.030 (1.010-1.020); Urobilinogen Urine 0.2 mg/dL (0.2-1.0); pH Urine 5.5 (5.0-8.0)
[2023-05-27 08:12] LABS: Basophils Absolute Auto 0.09 K/mm3 (0.00-0.10); Basophils Percent Auto 1.6 % (0.0-1.0); Eosinophils Absolute Auto 0.25 K/mm3 (0.02-0.50); Eosinophils Percent Auto 4.5 % (1.0-6.0); Hemoglobin 16.1 g/dL (14.0-18.0); Immature Granulocyte Absolute 0.02 K/mm3 (0.00-0.00); Immature Granulocyte Percent A 0.4 % (0.0-0.0); Lymphocytes Absolute Auto 1.24 K/mm3 (1.10-4.50); Lymphocytes Percent Auto 22.3 % (18.0-42.0); Mean Corpuscular HGB Conc 34.3 g/dL (32.0-36.0); Mean Corpuscular Hemoglobin 32.7 pg (27.0-31.0); Mean Corpuscular Volume 95.3 fL (78.0-102.0); Mean Platelet Volume 11.5 fl (8.7-11.0); Monocytes Absolute Auto 0.37 K/mm3 (0.10-0.90); Monocytes Percent Auto 6.6 % (2.0-11.0); Neutrophils Absolute Auto 3.6 K/mm3 (1.7-7.2); Neutrophils Percent Auto 64.6 % (50.0-70.0); Platelet Count Result 187 K/mm3 (150-420); Red Blood Count 4.93 M/mm3 (4.70-6.10); Red Cell Distribution Width 12.2 % (11.6-14.4); White Blood Count 5.6 K/mm3 (4.8-10.8)
[2023-05-27 08:15] LABS: Creatinine Urine 160.26 mg/dL (40-278); MALB Creatinine Ratio 16.3 mg/g (0-30); Microalbumin Urine Random 26.2 mg/L
[2023-05-27 08:16] LABS: Add Urine Microscopic? YES
[2023-05-27 08:17] LABS: Bacteria Urine Trace /hpf; Hemoglobin A1C 6.2 % (<5.7); Mucus Urine Few /lpf; RBC Urine None seen /hpf (0-2)
[2023-05-27 08:24] LABS: Prothrombin Time 10.9 Seconds (9.50-12.10)
[2023-05-27 09:27] LABS: Alanine Aminotransferase 118 U/L (16-63); Alkaline Phosphatase 42 U/L (46-116); Anion Gap 10 mmol/L (8-16); Aspartate Amino Transferase 47 U/L (15-37); Bilirubin,Total 0.7 mg/dL (0.00-1.00); Blood Urea Nitrogen 10 mg/dL (7-18); Calcium 8.8 mg/dL (8.5-10.1); Carbon Dioxide 28 mmol/L (21-32); Chloride 103 mmol/L (98-108); Cholesterol 151 mg/dL (0-200); Creatine Kinase 199 U/L (39-308); Estimated Glomerular Filt Rate > 60; Glucose 120 mg/dL (70-99); HDL Direct 69 mg/dL (40-60); LDL Cholesterol Calculated 72 mg/dL (<130); NT Pro B Type Natriuretic Pept 293 pg/mL (0-125); Osmolality Calculated 292 mOsm/kg (285-295); Potassium 4.4 mmol/L (3.5-5.1); Prostate Specific Antigen 4.7 ng/mL (< OR = 4.0); Sodium 141 mmol/L (136-145); Total Protein 6.8 g/dL (6.4-8.2); Triglycerides 49 mg/dL (0-150)
== END 2023-05-27 07:46 | disposition home or self-care (01) ==
LOC: CHSLAB 07:46
PROVIDERS: PCP Internal Medicine; Visit Provider Internal Medicine
DX: I50.9 Heart failure, unspecified (principal); E11.9 Type 2 diabetes mellitus without complications; I10 Essential (primary) hypertension; N39.0 Urinary tract infection, site not specified; E78.2 Mixed hyperlipidemia; Z79.01 Long term (current) use of anticoagulants; Z12.5 Encounter for screening for malignant neoplasm of prostate
CPT/HCPCS: 36415; 80053; 80061; 81001; 82043; 82550; 83036; 83880; 84153; 85025; 85610; 87086; 87088

== ENCOUNTER 2023-09-22 16:16 | Outpatient (CLI) | payer OTHER, SELFPAY ==
[2023-09-22 17:27] LABS: Alanine Aminotransferase 115 U/L (16-63); Alkaline Phosphatase 46 U/L (46-116); Anion Gap 8 mmol/L (4-12); Aspartate Amino Transferase 44 U/L (15-37); Bilirubin,Total 0.6 mg/dL (0.00-1.00); Blood Urea Nitrogen 13 mg/dL (7-18); Calcium 9.2 mg/dL (8.5-10.1); Carbon Dioxide 29 mmol/L (21-32); Chloride 103 mmol/L (98-108); Estimated Glomerular Filt Rate > 60; GGT 95 U/L (15-85); Glucose 113 mg/dL (70-99); Osmolality Calculated 291 mOsm/kg (285-295); Potassium 4.1 mmol/L (3.5-5.1); Sodium 140 mmol/L (136-145); Total Protein 6.9 g/dL (6.4-8.2)
== END 2023-09-22 16:17 | disposition home or self-care (01) ==
LOC: CHSLAB 16:18
PROVIDERS: PCP Internal Medicine; Visit Provider Internal Medicine
DX: I42.9 Cardiomyopathy, unspecified (principal)
CPT/HCPCS: 36415; 80053; 82977

== ENCOUNTER 2023-10-12 08:18 | Outpatient (CLI) | payer OTHER, SELFPAY ==
--- NOTE | ~2023-10-12 | CT_ITS ---
EXAMINATION: CT abdomen w con DATE: 10/12/2023 08:53 INDICATION: Abnormal liver function tests. Left abdominal pain. TECHNIQUE: Computed tomography (CT) of the abdomen was performed with 100 mL Omnipaque 350 intravenou s contrast. Automated exposure control and iterative reconstruction technique were employed. The dose -length product was 549.43 mGy-cm. COMPARISON: CT abdomen and pelvis 01/09/2020 FINDINGS: The visualized portions of the lung bases demonstrate minimal atelectasis. No pleural effus ion. The heart size is normal. No pericardial effusion. There are pacer wires in region, right ventri moises, and coronary sinus. The liver, gallbladder, spleen, pancreas, adrenal glands, and kidneys are no rmal. There are no dilated loops of bowel. There are no pathologically enlarged lymph nodes. There is no free intraperitoneal fluid. There is mild lumbar spondylosis. IMPRESSION: 1. No etiology for abnormal liver function tests or left abdominal pain. Reviewed, dictated and finalized at location A.
== END 2023-10-12 08:19 | disposition home or self-care (01) ==
LOC: CHSIMG 08:20
PROVIDERS: PCP Internal Medicine; Visit Provider Internal Medicine
DX: R94.5 Abnormal results of liver function studies (principal)
CPT/HCPCS: 74160; Q9967

== ENCOUNTER 2023-10-16 16:15 | Outpatient (CLI) | payer OTHER, SELFPAY ==
--- NOTE | ~2023-10-16 | XR_ITS ---
EXAMINATION: XR lumbar spine 2-3V DATE: 10/16/2023 16:45 INDICATION: Low back pain. Fall. TECHNIQUE: 3 views of lumbar spine were obtained. COMPARISON: CT abdomen 10/12/2023 FINDINGS: Bone alignment is normal. Vertebral body heights are normal. Intervertebral disc heights ar e normal. There are endplate osteophytes at multiple levels. There is multilevel facet joint osteoart hritis, severe in lower lumbar spine. IMPRESSION: 1. Mild lumbar spondylosis. Reviewed, dictated and finalized at location A. IMPRESSION: 1. Mild lumbar spondylosis.
--- NOTE | ~2023-10-16 | XR_ITS ---
Clinical Indication: Status post fall PA and lateral views of the chest: Comparison: 03/31/2022 Findings: The lungs are clear, without evidence of focal consolidation or pleural effusion. Cardiome diastinal silhouette is within normal limits, with pacemaker device. Bones and soft tissues are unrem arkable. Impression: Clear lungs. Pacemaker device. Reviewed, dictated and finalized at location . Impression: Clear lungs. Pacemaker device.
== END 2023-10-16 16:16 | disposition home or self-care (01) ==
LOC: CHSIMG 16:18
PROVIDERS: PCP Internal Medicine; Visit Provider Nurse Practitioner Family
DX: R07.81 Pleurodynia (principal); M54.50 Low back pain, unspecified; M43.06 Spondylolysis, lumbar region; Z95.0 Presence of cardiac pacemaker
CPT/HCPCS: 71046; 72100

== ENCOUNTER 2023-11-13 10:43 | Outpatient (CLI) | payer OTHER, SELFPAY ==
--- NOTE | ~2023-11-13 | XR_ITS ---
3 VIEWS LUMBAR SPINE Ordering provider: Jeronimo Mazariegos MD History: . COVID +, back pain . Comparison: October 16, 2023 FINDINGS: VERTEBRAL BODIES: No visible fracture or subluxation. Ossifications seen posterior to L5 unchanged fr om previous examination. DISK SPACES: Normal. SOFT TISSUES: Normal. IMPRESSION: No acute osseous abnormality lumbar spine. Reviewed, dictated and finalized at location A.
--- NOTE | ~2023-11-13 | XR_ITS ---
XR chest 2V Ordering provider: Jeronimo Mazariegos MD History: 63 years Male with . COVID +, CHF, Cough . Comparison: October 16, 2023 FINDINGS: MEDIASTINUM: The cardiac silhouette is not enlarged. Right tripolar pacemaker LUNGS: No infiltrates, effusions or pneumothorax. OTHER: No free air under the diaphragm. Degenerative changes of the spine. IMPRESSION: No acute cardiopulmonary pathology. Reviewed, dictated and finalized at location A.
[2023-11-13 10:54] LABS: Basophils Absolute Auto 0.07 K/mm3 (0.00-0.10); Basophils Percent Auto 1.4 % (0.0-1.0); Eosinophils Absolute Auto 0.07 K/mm3 (0.02-0.50); Eosinophils Percent Auto 1.4 % (1.0-6.0); Hematocrit 46.5 % (37.0-46.0); Hemoglobin 16.1 g/dL (12.4-15.3); Immature Granulocyte Absolute 0.02 K/mm3 (0.00-0.00); Immature Granulocyte Percent A 0.4 % (0.0-0.0); Lymphocytes Absolute Auto 1.18 K/mm3 (1.10-4.50); Lymphocytes Percent Auto 23.5 % (18.0-42.0); Mean Corpuscular HGB Conc 34.6 g/dL (32-36); Mean Corpuscular Hemoglobin 32.9 pg (27.0-31.0); Mean Corpuscular Volume 95.1 fL (78.0-102.0); Mean Platelet Volume 11.3 fl (8.7-11.0); Monocytes Percent Auto 13.9 % (2.0-11.0); Neutrophils Absolute Auto 2.98 K/mm3 (1.70-7.20); Neutrophils Percent Auto 59.4 % (50.0-70.0); Platelet Count Result 175 K/mm3 (150-420); Red Blood Count 4.89 M/mm3 (4.70-6.10); Red Cell Distribution Width 12.4 % (11.6-14.4)
[2023-11-13 11:19] LABS: Alanine Aminotransferase 107 U/L (16-63); Albumin Level 3.7 g/dL (3.4-5.0); Alkaline Phosphatase 64 U/L (46-116); Anion Gap 6 mmol/L (4-12); Aspartate Amino Transferase 41 U/L (15-37); Bilirubin,Total 0.6 mg/dL (0.00-1.00); Blood Urea Nitrogen 11 mg/dL (7-18); Calcium 8.9 mg/dL (8.5-10.1); Carbon Dioxide 29 mmol/L (21-32); Chloride 102 mmol/L (98-108); Estimated Glomerular Filt Rate > 60; Glucose 145 mg/dL (70-99); NT Pro B Type Natriuretic Pept 294 pg/mL (0-125); Osmolality Calculated 286 mOsm/kg (285-295); Potassium 4.1 mmol/L (3.5-5.1); Sodium 137 mmol/L (136-145); Total Protein 7.1 g/dL (6.4-8.2)
== END 2023-11-13 10:44 | disposition home or self-care (01) ==
LOC: CHSLAB 10:45
PROVIDERS: PCP Internal Medicine; Visit Provider Internal Medicine
DX: R05.9 Cough, unspecified (principal); J06.9 Acute upper respiratory infection, unspecified; I50.9 Heart failure, unspecified; M54.50 Low back pain, unspecified; U07.1 COVID-19
CPT/HCPCS: 36415; 71046; 72100; 80053; 83880; 85025

== ENCOUNTER 2023-11-27 19:23 | Emergency (ER) | payer OTHER, SELFPAY ==
--- NOTE | ~2023-11-27 | XR_ITS ---
EXAMINATION: XR chest 2V Exam Date/Time: 11/27/2023 20:00 CDT HISTORY: COUGHING, FEVER Comparison: 11/13/2023. RESULT: Lines, tubes, and devices: Right chest pacer/AICD with intact leads. Lungs and pleura: Clear. Cardiomediastinal silhouette: Stable. Other: No acute osseous or upper abdominal finding. IMPRESSION: No acute cardiopulmonary process. Reviewed, dictated and finalized at location K.
[2023-11-27 19:23] VITALS: BP 148/90; PULSE 93; RESP 18; TEMP 38; O2SAT 94
--- NOTE | 2023-11-27 19:27 | PC.NURSE ---
pts hearing aids placed in specimen cup and handed to . COVID PCR obtained and taken to lab
--- NOTE | 2023-11-27 19:36 | ED.URI ---
HPI - URI/Sore Throat General Chief Complaint: Upper Respiratory Infection Stated Complaint: FEVER, COUGH Time Seen by Provider: 11/27/23 19:34 Source: patient and family Mode of arrival: ambulatory Limitations: no limitations History of Present Illness HPI Narrative: 63 YEARS OLD WHITE MALE CAME TO THE ED BY BY AMBULANCE FROM HOME COMPLAINING OF PRODUCTIVE COUGH STARTED A WHILE AGO, TODAY IS ASSOCIATED WITH FEVER, CHILLS, BODY ACHES. PATIENT IS TELLING ME THAT HE TESTED POSITIVE FOR COVID AND NOVEMBER 11, 2023 AND WAS TREATED AT THAT TIME AND HAVE BEEN COUGHING SINCE. PATIENT WENT A WITHIN [facility] 4 DAYS AGO. Related Data Home Medications Medication Instructions Recorded Confirmed carvedilol 25 mg tablet 25 mg PO BID 01/09/20 11/27/23 digoxin 250 mcg (0.25 mg) tablet 250 mcg PO DAILY 01/09/20 11/27/23 spironolactone 25 mg tablet 25 mg PO QPM 01/09/20 11/27/23 apixaban 5 mg tablet (Eliquis) 5 mg PO BID 07/19/21 11/27/23 metformin 500 mg tablet,extended 1,000 mg PO QPM 07/19/21 11/27/23 release 24 hr sacubitril 49 mg-valsartan 51 mg 1 tablet PO Q12HR 07/19/21 11/27/23 tablet (Entresto) tamsulosin 0.4 mg capsule 0.4 mg PO DAILY 03/31/22 11/27/23 Allergies Allergy/AdvReac Type Severity Reaction Status Date / Time polyethylene glycol Allergy Other Verified 11/27/23 19:25 [facility] Past Medical History Medical History Atrial fibrillation Benign prostatic hyperplasia Borderline diabetes CAD (coronary artery disease) Chronic anticoagulation Colon cancer screening Diabetes mellitus Gastroesophageal reflux disease GERD (gastroesophageal reflux disease) HTN (hypertension) Hx of myocardial infarction Hypertension Kidney stones Nonischemic cardiomyopathy ef 20-25% Pacemaker Vertigo Surgical History Surgical History AICD (automatic cardioverter/defibrillator) present History of appendectomy History of basal cell carcinoma excision History of cervical spinal surgery History of esophagogastroduodenoscopy (EGD) History of hernia repair Family History Family History Mother COPD (chronic obstructive pulmonary disease) Father Aneurysm Social History Social History Social History: Surrogate decision maker: Marie Darnell, spouse. Code status: Full code. 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 Living arrangements: with family Additional living arrangements comments: The patient lives in [place] with his . 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 Spiritual care concerns: No Course Vital Signs Vital signs: Vital Signs Temperature 38.0 C H 11/27/23 19:23 Pulse Rate 93 11/27/23 19:23 Respiratory Rate 18 11/27/23 19:23 Blood Pressure 148/90 H 11/27/23 19:23 Pulse Oximetry 94 11/27/23 19:23 Oxygen Delivery Room Air 11/27/23 19:23 Temperature 37.4 C 11/27/23 20:44 Pulse Rate 92 11/27/23 20:44 Respiratory Rate 18 11/27/23 20:44 Blood Pressure 140/69 11/27/23 20:44 Pulse Oximetry 94 11/27/23 20:44 Oxygen Delivery Room Air 11/27/23 20:44 MDM - URI/Sore Throat MDM Narrative Medical decision making narrative: PATIENT PRESENTS WITH PRODUCTIVE COUGH STARTED SINCE BEEN HAVING COVID 15 DAYS AGO, GOT WORSE OVER THE LAST 2 DAYS. PATIENT TESTED NEGATIVE FOR COVID 4 DAYS AGO. VITAL SIGNS ON ARRIVAL SHOWED TEMPERATURE OF 38.0? PHYSICAL EXAMINATION SHOWED FEW SCATTERED RHONCHI BILAT
[2023-11-27] MEDS: ACETAMINOPHEN 500 MG TABLET 1000 MG PO (19:58)
[2023-11-27 20:03] LABS: Basophils Absolute Auto 0.06 K/mm3 (0.00-0.10); Basophils Percent Auto 0.6 % (0.0-1.0); Eosinophils Absolute Auto 0.04 K/mm3 (0.02-0.50); Eosinophils Percent Auto 0.4 % (1.0-6.0); Hemoglobin 15.6 g/dL (12.4-15.3); Immature Granulocyte Absolute 0.03 K/mm3 (0.00-0.00); Immature Granulocyte Percent A 0.3 % (0.0-0.0); Lymphocytes Absolute Auto 0.95 K/mm3 (1.10-4.50); Mean Corpuscular HGB Conc 35.5 g/dL (32-36); Mean Corpuscular Hemoglobin 32.6 pg (27.0-31.0); Mean Corpuscular Volume 92.1 fL (78.0-102.0); Mean Platelet Volume 10.8 fl (8.7-11.0); Monocytes Absolute Auto 0.71 K/mm3 (0.10-0.90); Monocytes Percent Auto 6.7 % (2.0-11.0); Platelet Count Result 191 K/mm3 (150-420); Red Blood Count 4.78 M/mm3 (4.70-6.10); White Blood Count 10.6 K/mm3 (4.8-10.8)
[2023-11-27] MEDS: SODIUM CHLORIDE 0.9% IV 1,000 ML 999 ML IV CONT (20:04)
[2023-11-27 20:05] VITALS: BP 140/80; PULSE 88; RESP 18; O2SAT 95
[2023-11-27 20:14] LABS: Partial Thromboplastin Time 31.4 Sec (23.9-30.70); Prothrombin Time 11.4 Seconds (9.50-12.1)
[2023-11-27 20:32] LABS: Influenza A QL RT-PCR Negative (Negative); Influenza B QL RT-PCR Negative (Negative); RSV RNA, RT-PCR Negative (Negative); SARS-CoV-2 RNA PCR Negative (Negative)
[2023-11-27 20:44] VITALS: BP 140/69; PULSE 92; RESP 18; TEMP 37.4; O2SAT 94
[2023-11-27 21:12] VITALS: TEMP 37.4
[2023-11-27 21:15] VITALS: BP 140/72; PULSE 90; RESP 18; O2SAT 96
[2023-11-27] MEDS: methylPREDNISolone SOD SUCC 125 MG VIAL IV PUSH (21:16)
[2023-11-27] MEDS: IPRATROPIUM 0.5 MG/ALBUTEROL SULFATE 2.5 MG AMPUL.NEB 3 ML INHALATION (21:16)
--- NOTE | 2023-11-27 21:20 | PC.NURSE ---
ANAND HAS UPDATED PT. AT BEDSIDE. SARAH TX IN PROGRESS. WILL CONTINUE TO MONITOR. NAD NOTED. PT HAS A WHISTLING COUGH NOTED.
[2023-11-27 21:22] LABS: Base Excess ABG 0.8 mmol/L (0-2); Device ROOM AIR; HCO3 ABG 23.8 mmol/L (23-29); Modified Allen's Test Pass; Oxygen Content ABG 19.4 %vol (16.0-22.0); Oxygen Saturation ABG 92.4 % (95-97); Oxyhemoglobin 91.4 % (94-100); PCO2 ABG 33.8 mmHg (35-45); PO2 ABG 66.4 mmHg (80-90); Site Drawn RIGHT RADIAL; pH ABG 7.47 (7.35-7.45)
--- NOTE | 2023-11-27 22:15 | PC.NURSE ---
PT REPORTS HE IS READY TO GO HOME, COUGH REMAINS HIGH PITCHED, DRY , AND NON PRODUCTIVE IN ED. NO ACUTE RESP DISTRESS NOTED.
[2023-11-27] MEDS: guaiFENesin/CODEINE 100/10 MG 5 ML SYRUP 10 ML PO (22:16)
[2023-11-27 22:20] VITALS: BP 140/82; PULSE 88; RESP 18; TEMP 37.2; O2SAT 95
[2023-11-27] MEDS: CEFDINIR 300 MG CAPSULE PO (22:21)
[2023-11-27 22:44] LABS: Lactic Acid Reflex 1.3 mmol/L (0.7-2.0)
[2023-11-27 23:11] LABS: Alanine Aminotransferase 47 U/L (6-50); Albumin Level 4.6 g/dL (3.5-5.1); Alkaline Phosphatase 61 U/L (38-126); Anion Gap 13 mmol/L (4-12); Aspartate Amino Transferase 29 U/L (17-59); Bilirubin,Total 1.3 mg/dL (0.2-1.3); Blood Urea Nitrogen 14 mg/dL (9-20); CRP 3.3 mg/dL (<1.0); Calcium 9.1 mg/dL (8.4-10.2); Carbon Dioxide 23 mmol/L (22-30); Chloride 98 mmol/L (98-107); Estimated CRCL calculation 84 ml/min; Estimated Glomerular Filt Rate > 60; Glucose 170 mg/dL (65-110); Osmolality Calculated 282 mOsm/kg (285-295); Potassium 4.1 mmol/L (3.4-5.0); Sodium 134 mmol/L (137-145)
--- NOTE | 2023-12-04 14:14 | PC.NURSE ---
FINAL BLOOD CULTURE RESULTS. NO GROWTH AFTER 5 DAYS, NO FURTHER ACTION OR TREATMENT NEEDED.
== END 2023-11-27 22:20 | disposition home or self-care (01) ==
PROVIDERS: Emergency Provider Emergency Medicine; PCP Internal Medicine
DX: J40 Bronchitis, not specified as acute or chronic (principal); I48.91 Unspecified atrial fibrillation; I25.10 Atherosclerotic heart disease of native coronary artery without angina pectoris; I25.2 Old myocardial infarction; I11.0 Hypertensive heart disease with heart failure; I50.9 Heart failure, unspecified; Z79.899 Other long term (current) drug therapy; Z79.01 Long term (current) use of anticoagulants; E11.9 Type 2 diabetes mellitus without complications; Z87.891 Personal history of nicotine dependence; Z20.822 Contact with and (suspected) exposure to COVID-19
CPT/HCPCS: 36415; 36600; 71046; 80053; 82805; 83605; 85025; 85610; 85730; 86140; 87040; 87637; 96361; 96374; 99284; A9270; J2919; J7030

== ENCOUNTER 2024-02-20 14:59 | Outpatient (CLI) | payer OTHER, MEDICARE, SELFPAY ==
[2024-02-20 15:14] LABS: Basophils Absolute Auto 0.08 K/mm3 (0.00-0.10); Basophils Percent Auto 1.6 % (0.0-1.0); Eosinophils Absolute Auto 0.19 K/mm3 (0.02-0.50); Eosinophils Percent Auto 3.7 % (1.0-6.0); Hematocrit 43.6 % (37.0-46.0); Hemoglobin 15.2 g/dL (12.4-15.3); Immature Granulocyte Absolute 0.01 K/mm3 (0.00-0.00); Immature Granulocyte Percent A 0.2 % (0.0-0.0); Lymphocytes Absolute Auto 1.29 K/mm3 (1.10-4.50); Mean Corpuscular HGB Conc 34.9 g/dL (32-36); Mean Corpuscular Volume 94.8 fL (78.0-102.0); Mean Platelet Volume 11.4 fl (8.7-11.0); Monocytes Absolute Auto 0.42 K/mm3 (0.10-0.90); Monocytes Percent Auto 8.1 % (2.0-11.0); Neutrophils Absolute Auto 3.17 K/mm3 (1.70-7.20); Neutrophils Percent Auto 61.4 % (50.0-70.0); Platelet Count Result 182 K/mm3 (150-420); Red Cell Distribution Width 12.7 % (11.6-14.4); White Blood Count 5.2 K/mm3 (4.8-10.8)
[2024-02-20 15:56] LABS: Hemoglobin A1C 5.9 % (<5.7)
[2024-02-20 16:05] LABS: Alanine Aminotransferase 50 U/L (16-63); Albumin Level 3.9 g/dL (3.4-5.0); Alkaline Phosphatase 61 U/L (46-116); Anion Gap 9 mmol/L (4-12); Aspartate Amino Transferase 20 U/L (15-37); Bilirubin,Total 0.5 mg/dL (0.00-1.00); Blood Urea Nitrogen 11 mg/dL (7-18); Calcium 9.3 mg/dL (8.5-10.1); Carbon Dioxide 29 mmol/L (21-32); Chloride 104 mmol/L (98-108); Cholesterol 128 mg/dL (0-200); Creatine Kinase 147 U/L (39-308); Estimated Glomerular Filt Rate > 60; Glucose 143 mg/dL (70-99); HDL Direct 58 mg/dL (40-60); LDL Cholesterol Calculated 43 mg/dL (<130); NT Pro B Type Natriuretic Pept 516 pg/mL (0-125); Osmolality Calculated 295 mOsm/kg (285-295); Potassium 4.5 mmol/L (3.5-5.1); Sodium 142 mmol/L (136-145); Total Protein 6.7 g/dL (6.4-8.2); Triglycerides 135 mg/dL (0-150)
[2024-02-20 16:36] LABS: Prostate Specific Antigen 4.4 ng/mL (< OR = 4.0)
== END 2024-02-20 15:00 | disposition home or self-care (01) ==
LOC: CHSLAB 15:02
PROVIDERS: PCP Internal Medicine; Visit Provider Internal Medicine
DX: E11.9 Type 2 diabetes mellitus without complications (principal); R97.20 Elevated prostate specific antigen [PSA]; I50.9 Heart failure, unspecified
CPT/HCPCS: 36415; 80053; 80061; 82550; 83036; 83880; 84153; 85025

== ENCOUNTER 2024-02-20 16:21 | Outpatient (CLI) | payer OTHER, SELFPAY | END 2024-02-20 16:22 | disposition home or self-care (01) | PROVIDERS: PCP Internal Medicine; Visit Provider Specialist | DX: C44.629 Squamous cell carcinoma of skin of left upper limb, including shoulder (principal) | CPT/HCPCS: 88305 ==

== ENCOUNTER 2024-10-24 07:39 | Outpatient (CLI) | payer MEDICARE, OTHER, SELFPAY ==
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
--- OUTSIDE RECORDS SUMMARY | 2024-10-24 07:45 | XMS_ITS | Continuity of Care Document ---
Author Organization [facility] Address [address] [address] [place] [address] Phone Care Team Providers Care Machine Heel Sprayer Name Role Phone Keen OD, Pranav Unavailable Unavailable Procedures Procedure Date Office/outpatient Visit, Est Office/outpatient Visit, Est Remove Foreign Body From Eye Advance Directives Directive Yes / No Effective Date File Name No Information Encounters Encounter Description Practice Location Reason(s) For Visit Diagnoses Date Provider Providers Copied on Encounter Office/outpat ient Visit, [facility], [address] [place] [address] [address], [place], [place], [id number], tel:[phone] [facility] No Information Feb-0 9-200 8 Keen OD Pranav. [facility] [place] , [address], [place], [place], [facility], . tel:[phone] Office/outpat ient Visit, [facility], [address] [place] [address] [address], [place], [place], [id number], [place] tel:[phone] [facility] No Information Feb-0 2-200 8 Keen OD Pranav. [address] [facility] [address], [place], [place], [facility], . tel:[phone] [facility], [address] [place] [address] [address], [place], [place], [id number], tel:[phone] [facility] [place] No Information Walter-3 1-200 [address] , [address], [place], [address], [place]. tel:[phone] Family History Family Member Type Diagnosis Age At Onset No Information Payers Payer name Insurance type Covered green party ID Authoriza tion(s) [facility] [id number] Social History Type Description Quantity Date Captured Comments Sex Male Smoking Status No Information Chief Complaint And Reason For Visit No Information Reason For Referral Reason For Referral No Information History Of Present Illness Encounter Date Complaint History Of Prese nt Illness No Information Functional Status Date Functional Assessmen t No Information Instructions Date Instruction Additional Infor mation No Information Assessments Type Assessment Date No Information Patient Care Teams Name Effective Dates (start - stop) Status Members No Information
--- OUTSIDE RECORDS SUMMARY | 2024-10-24 07:45 | XMS_ITS | Referral Summary ---
Author Organization [facility] Address [address] [place] [address] Care Team Providers Care Pig Conveyor Operator Name Role Phone Jeronimo Mazariegos MD Primary Care Provider [phone] Donnell Maxwell MD Unavailable [phone] Encounters Date Type Department Care Team Description 07/29/2024 8:15 AM CDT Ancillary Procedure Arrhythmia Center [address] [address] Biventricular ICD (implantable cardioverter-defibrilla tor) in place (Primary Dx); Nonischemic congestive cardiomyopathy (HCC) from Last 3 Months Allergies No known active allergies Medications carvediloL [...] PM CDT): Severe nonischemic cardiomyopathy, associated with [place] heart Association class 3 symptoms and left [...] office will make the appropriate arrangements. From: Seng Salinas AE, JP, Ellenbogen KA, Estes NAM III, Mary Herrera RA, Kehinde CHICAS, Karol Tariq, Meli TURNER, Jesse CAMPOS, Dillon PA, Vanda HALEY, Page RL, Cecy BRIAN, Ana CAN, Manny ALY, Flakito DÍAZ. ACC/AHA/HRS 2008 guidelines for device-based therapy of cardiac rhythm abnormalities: a report of the [place] College of Cardiology/Vietnamese Heart Association Task Force on Practice Guidelines [...] or III. (Level of Evidence: B) From: Seng Salinas AE, JP, Dayne BURGOS, Bea ALATORRE III, Sharon BLACKMON, Mary NAILS, Kehinde CHICAS, Karol Tariq, Meli TURNER, Jesse CAMPOS, Dillon PA, Vanda HALEY, Page RL, Cecy BRIAN, Ana CAN, Manny ALY, Fraga [place] 2012 ACCF/AHA/HRS focused update incorporated into the ACCF/AHA/HRS 2008 guidelines for device-based therapy of cardiac rhythm abnormalities: a report of the Vietnamese College of Cardiology Foundation/Vietnamese Heart Association Task Force on Practice Guidelines and the Heart Rhythm Society. J Am Alexandro Cardiol 2013;61:e6-75. 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 Gender Identity Not on file Sexual Orientation Not on file Last Filed Vital Signs Vital Sign Reading [...] 11/06/2023 8:14 AM CDT Plan of Treatment Not on file Medical Devices Implanted Type Area Fish Cutting Machine Operator Device Identifier Shelf Expiration Date Model / Serial / Lot Medtronic Inc [id number] Cardiac [place] Hf 2 Chamber Df4 Inline Cnctr Is4 - [id number] - [id number] Implanted:Qty: 1 on 02/01/2021 by Julius Yoder MD at [facility] ICD Right: Chest Medtronic Inc [id number] 06/21/2022 [id number] / [id number] / Medtronic Cardiac Rhythm Mgmt 5076-45 Capsurefix Novus 6.2fr 2mm 45cm Bipolar Screw In Implantable - [id number] - [id number] Implanted:Qty: 1 on 02/01/2021 by Julius Yoder MD at [facility] Lead Medtronic Inc [id number] 11/24/2022 507 6-45 / [id number] / Medtronic Cardiac Rhythm Mgmt [id number] Sprint Quattro Secure S 55cm Df-4 Tripolar Screw Defibrillator - [id number] - [id number] Implanted:Qty: 1 on 02/01/2021 by Julius Yoder MD at [facility] Lead Medtronic Inc [id number] 11/25/2022 693 5M55 / [id number] / Medtronic Inc [id number] Lead Attain Stability Quad Mri Surescan Lv 88mm - [id number] - [id number] Implanted:Qty: 1 on 02/01/2021 by Julius Yoder MD at [facility] Lead Medtronic Inc [id number] 08/31/2022 479 888 / [id number] / Procedures Procedure Name Priority Date/Time [...] ohms N/A Battery Status: 3.7 years to [facility], charge time 3.8 seconds. Episodes last 90 days/Comments: AF [place] <0.1 %,longest duration 3 minutes and 55 [...] 3) Programming appropriate for device settings Iesha Betancourt, RN us Julius Yoder MD CV CARDIAC [...] to request sample to be sent to [facility] for Hepatitis C Virus (HCV) RNA Detection and Quantitation by Real-Time Reverse Network Coordinator-PCR (RT-PCR). Current interpretive data was last revised on 2011 us Cezar Grace MD LAB BLOOD ORDERABLES F inal Result HISTORICAL RESULTS from Last 3 Months or Most Recently Relevant to Health Maintenance Insurance [facility] CHOICE PLUS [facility] H[facility]/PPO Address: [place] [address] [facility] Address: [place] [address] MEDICARE [facility]ICE PLUS [facility] HMO/PPO Address: [address] [place] [address] Care Teams Pig Conveyor Operator Relationship Specialty Start Date End Date Jeronimo Mazariegos MD [address] [place] [address] PCP - General 12/31/13 Donnell Maxwell MD [address] [facility], [address] [address] Surgeon Ophthalmology 08/11/23
--- OUTSIDE RECORDS SUMMARY | 2024-10-24 07:45 | XMS_ITS | Clinical Summary ---
Author Organization [facility] Address [address] [place] [address] Care Team Providers Care Machine Deburrer Name Role Phone Jeronimo Mazariegos MD Primary Care Provider [phone] Macarena Goncalves RN Unavailable Unavailable Ankita Mariano LUMBER STICKER-CLAY SHOP SUPERVISOR Unavailable [phone] Source Comments [facility],non-owned Affiliates and Associated Physician Practices is amultiple site organization consisting of ambulatory clinics and hospital sitesin [place], [place], [place] and [place]. This disclosure is being madepursuant to the Care Everywhere program and may not contain all information available regarding this patient. Last updated 18.[facility] Allergies No known active allergies Medications * Be aware that medications may not be up to date on this document. Alwaysverify current medications with the patient. albuterol HFA (Proventil; Ventolin; Proair) 108 (90 Base) MCG/ACT inhaler Inhale 2 (two) puffs by mouth every 4 hours 11/28/2023 Active Eliquis 5 MG tablet Take 1 (one) tablet by mouth 2 times daily 05/01/2024 Active carvedilol (Coreg) 25 MG tablet Take 1 (one) tablet by mouth 2 times daily 02/18/2024 Active metFORMIN ER 24hr (Glucophage XR) 500 MG tablet Take 2 (two) tablets by mouth daily with dinner 03/15/2024 Active omeprazole (PriLOSEC) 20 MG capsule Take 1 (one) capsule by mouth 2 times daily Active Entresto 97-103 MG tablet Take 1 (one) tablet by mouth 2 times daily Active spironolactone (Aldactone) 25 MG tablet Take 1 (one) tablet by mouth once daily 03/11/2024 Active tamsulosin (Flomax) 0.4 MG capsule Take 1 (one) capsule by mouth once daily Active Active Problems Problem Noted Date Diagnosed Date Metabolic dysfunction-associ ated steatotic liver disease (MASLD) 05/07/2024 Overview (05/07/2024): 05/07/24 Fibroscan CAP 343, LSM 7.7 kPa Social History Tobacco Use Types Packs/Day Years Used Date Smoking Tobacco: Former Cigarettes Smokeless Tobacco: Never Tobacco Cessation:Counseling Given: Not Answered Alcohol Use Standard Drinks/Week Comments Yes 12 (1 standard drink = 0.6 oz pure alcohol) no whiskey/wine in 1 year- only drinks beer Sex and Gender Information Value Date Recorded Sex Assigned at Not on file Legal Sex Male 11:39 AM CDT Gender Identity Not on file Sexual Orientation Not on file Last Filed Vital Signs Vital Sign Reading Time Taken Comments Blood Pressure 121/83 05/07/2024 12:46 PM SAFETY LAMP KEEPER Pulse 63 05/07/2024 12:46 PM SAFETY LAMP KEEPER Temperature 36.7 C (98 F) 05/07/2024 12:46 PM SAFETY LAMP KEEPER Respiratory Rate - - Oxygen Saturation 98% 05/07/2024 12:46 PM SAFETY LAMP KEEPER Inhaled Oxygen Concentration - - Weight 101.2 kg (223 lb) 05/07/2024 12:46 PM SAFETY LAMP KEEPER Height 188 cm (6' 2) 05/07/2024 12:46 PM SAFETY LAMP KEEPER Body Mass Index 28.63 05/07/2024 12:46 PM SAFETY LAMP KEEPER Plan of Treatment Upcoming Encounters Date Type Department Care Team (Late st Contact Info) Description 11/04/2024 9:00 AM CDT Office Visit [facility] - [facility] [address] [place] [phone] Ankita Mariano, LUMBER STICKER-CLAY SHOP SUPERVISOR [address] [facility] [place] [address] [place] [address] Health Maintenance Due Date Last Done Comments COLOGUARD (AGES 45-75) - COL ON CA SCREENING 1958 COLON MONITORING 1958 COLONOSCOPY - COLON CA SCREENING 1958 CT COLONOGRAPHY - COLON CA SCREENING 1958 Colorectal Cancer Screening 1958 FIT - COLON CA SCREENING 1958 FLEX SIG - COLON CA SCREENING 1958 DTAP/TDAP/TD VACCINES (1 - Tdap) 1977 PNEUMOCOCCAL VACCINE 50+ (1 of 1 - PCV) 2008 ZOSTER VACCINE (1 of 2) 2008 Respiratory Syncytial Virus (RSV) Vaccine Pt: or over 60 yrs (1 - Risk 60-74 years 1-dose series) 2018 AAA SCREENING 2023 COVID-19 VACCINE (1 - 2023-2 5 season) 2023 DEPRESSION SCREENING 04/24/2024 INFLUENZA VACCINE (Season Ended) 2024 SCREENING FOR DIABETES 05/07/2027 , 11/06/2023 LIPID TESTING 11/05/2028 11/06/2023 HEPATITIS C SCREENING Completed 05/07/2024 HEPATITIS B VACCINE Aged Out No longe r eligible based on patient's age to complete this topic HIB VACCINE Aged Out No longer eligi ble based on patient's age to complete this topic HPV VACCINE Aged Out No longer eligi ble based on patient's age to complete this topic MENINGOCOCCAL (Group B) VACCINE SHARED DECISION-MAKING Aged Out No longer eligible based on patient's age to complete this topic MENINGOCOCCAL GROUPS A/C/Y/W VACCINE Aged Out No longer eligible b ased on patient's age to complete this topic Goals Goal Patient Goal Type Associated Problems Recent Progress Patient-Stated? Author Medication Management General On track( 025 12:54 PM SAFETY LAMP KEEPER) Karen Vidal, RN Note: Expected end date: ongoing Interventions: Take all medications as prescribed Let your doctor know right away about any changes in your medications Make sure to request a refill of your medication at least one week prior to your last dose Procedures Procedure Name Priority Date/Time Associated Diagnosis Comments COMPREHENSIVE METABOLIC PANEL Routine 05/07/2024 2:09 PM SAFETY LAMP KEEPER Elevated liver enzymes HEPATITIS C ANTIBODY Routine 05/07/2024 2:09 PM SAFETY LAMP KEEPER Elevated liver enzymes from Last 3 Months or Most Recently Relevant to Health Maintenance Results * (ABNORMAL) COMPREHENSIVE METABOLIC PANEL (05/07/2024 2:09 PM [facility]) BUN 13 7 - 26 mg/dL 05/07/2024 3:13 PM [facility] Creatinine 0.94 0.71 - 1.16 mg/dL 05/07/2024 3:13 PM [facility] Sodium 140 136 - 145 mmol/L 05/07/2024 3:13 PM [facility] Potassium 4.4 3.5 - 4.5 mmol/L 05/07/2024 3:13 PM [facility] Chloride 106 98 - 107 mmol/L 05/07/2024 3:13 PM [facility] CO2 25 22 - 29 mmol/L 05/07/2024 3:13 PM [facility] Glucose 118(H) 70 - 99 mg/dL 05/07/2024 3:13 PM [facility] Calcium 9.4 8.4 - 10.2 mg/dL 05/07/2024 3:13 PM [facility] Protein Total 7.1 6.0 - 8.3 g/dL 05/07/2024 3:13 PM [facility] Albumin 4.5 3.4 - 5.0 g/dL 05/07/2024 3:13 PM [facility] Bilirubin Total 0.6 0.2 - 1.2 mg/dL 05/07/2024 3:13 PM [facility] Alkaline Phosphatase 60 40 - 150 U/L 05/07/2024 3:13 PM [facility] ALT 57(H) 5 - 55 U/L 05/07/2024 3:13 PM [facility] AST 29 5 - 34 U/L 05/07/2024 3:13 PM [facility] Anion Gap 9 6 - 16 05/07/2024 3:13 PM [facility] BUN/Creatinine Ratio 14 7 - 23 05/07/2024 3:13 PM [facility] Osmolality Calculated 291 275 - 295 mOsm/kg 05/07/2024 3:13 PM [facility] Albumin/Globulin Ratio 1.7 1.1 - 2.3 05/07/2024 3:13 PM SAFETY LAMP KEEPER [facility] eGFR by CKD-EPI 90 >=90 mL/min/1.7 3 m2 05/07/2024 3:13 PM SAFETY LAMP KEEPER [facility] Blood BLOOD SPECIMEN / Unknown Lab Venipuncture / Unknown 05/07/2024 2:09 PM SAFETY LAMP KEEPER 05/07/2024 2:48 PM SAFETY LAMP KEEPER Ankita Mariano LUMBER STICKER-[facility] - CHEMISTRY ORD ERABLES Final Result [facility] [address] [place] [address], [place] [phone] * HEPATITIS C ANTIBODY (05/07/2024 2:09 PM SAFETY LAMP KEEPER) [facility] Hepatitis C Antibody Non-react markos Non-reac tive 05/07/2024 3:37 PM SAFETY LAMP KEEPER [facility] Comment:Hepatitis C Antibody screen indicates no serologic evidence of past or current infection with Hepatitis C Virus. Patients with unexplained liver disease who are immunocompromised or suspected of having acute Hepatitis C infection may benefit from Nucleic Acid Test (JENN) for Hepatitis C Viral RNA to confirm Hepatitis C status. Blood BLOOD SPECIMEN / Unknown Lab Venipuncture / Unknown 05/07/2024 2:09 PM SAFETY LAMP KEEPER 05/07/2024 2:44 PM SAFETY LAMP KEEPER Ankita Mariano APRN-[facility] - CHEMISTRY ORD ERABLES Final Result [facility] [address] [place] [address], [place] [phone] from Last 3 Months or Most Recently Relevant to Health Maintenance Insurance [facility] Care Teams Machine Deburrer Relationship Specialty Start Date End Date Jeronimo Mazariegos MD [address] [place] [address] PCP - General Internal Medicine 11/24/23 Macarena Goncalves, RN Registered Nurse Hepatology 05/24/24 Ankita Mariano, LUMBER STICKER-CLAY SHOP SUPERVISOR [address] [place] [address] Nurse Practitioner Hepatology 06/21/24
[2024-10-24 07:56] LABS: Hematocrit 46.2 % (37.0-46.0); Hemoglobin 15.7 g/dL (12.4-15.3); Immature Granulocyte Percent A 0.2 % (0.0-0.0); Lymphocytes Absolute Auto 1.34 K/mm3 (1.10-4.50); Mean Corpuscular HGB Conc 34.0 g/dL (32-36); Mean Corpuscular Hemoglobin 32.3 pg (27.0-31.0); Mean Corpuscular Volume 95.1 fL (78.0-102.0); Nucleated Red Blood Cells Absolute Auto 0.00 K/mm3 (0.00-0.00); Nucleated Red Blood Cells Perc 0.0 % (0-0.0); Platelet Count Result 175 K/mm3 (150-420); Red Blood Count 4.86 M/mm3 (4.70-6.10); White Blood Count 4.7 K/mm3 (4.8-10.8)
[2024-10-24 08:29] LABS: Alanine Aminotransferase 75 U/L (6-50); Albumin Level 4.2 g/dL (3.5-5.1); Alkaline Phosphatase 44 U/L (38-126); Anion Gap 6 mmol/L (4-12); Aspartate Amino Transferase 46 U/L (17-59); Bilirubin,Total 0.7 mg/dL (0.2-1.3); Blood Urea Nitrogen 15 mg/dL (9-20); Calcium 9.1 mg/dL (8.4-10.2); Carbon Dioxide 27 mmol/L (22-30); Chloride 104 mmol/L (98-107); Cholesterol 122 mg/dL (0-200); Creatine Kinase 87 U/L (55-170); Estimated Glomerular Filt Rate > 60; Glucose 125 mg/dL (65-110); HDL Direct 46 mg/dL; Osmolality Calculated 285 mOsm/kg (285-295); Potassium 4.4 mmol/L (3.4-5.0); Sodium 137 mmol/L (137-145); Total Protein 6.4 g/dL (6.3-8.2); Triglycerides 79 mg/dL (<150)
[2024-10-24 08:39] LABS: NT Pro B Type Natriuretic Pept 314 pg/mL (19.9-100)
[2024-10-24 09:01] LABS: Prostate Specific Antigen 4.2 ng/mL (< OR = 4.0)
== END 2024-10-24 07:40 | disposition home or self-care (01) ==
PROVIDERS: PCP Internal Medicine; Visit Provider Internal Medicine
DX: R97.20 Elevated prostate specific antigen [PSA] (principal); E78.2 Mixed hyperlipidemia; I50.9 Heart failure, unspecified; R74.8 Abnormal levels of other serum enzymes; I11.0 Hypertensive heart disease with heart failure
CPT/HCPCS: 36415; 80053; 80061; 82550; 83880; 84153; 85025

== ENCOUNTER 2025-03-17 16:07 | Outpatient (CLI) | payer OTHER, MEDICARE, SELFPAY ==
--- NOTE | ~2025-03-17 | XR_ITS ---
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 Technique: 3 view. Findings: Moderate fecal content, no dilated bowel loops, nonspecific calcified focus noted in the right lower quadrant that appears relatively unchanged compared to previous exams etiology unclear, this finding is new compared to the previous CT 01/09/2020. No free air. No abnormal calcifications No acute osseous abnormality. Impression: 1. 1. No etiology to explain left flank pain. 2. Calcified focus right lower quadrant etiology unclear. CT suggested to assess Reviewed, dictated and finalized at location P. DERRICK OPERATOR Impression: 1. 1. No etiology to explain left flank pain. 2. Calcified focus right lower quadrant etiology unclear. CT suggested to asses s
--- NOTE | ~2025-03-17 | XR_ITS ---
XR lumbar spine 2-3V Indication: L Flank Pain, Back Pain Comparison: None Findings: The vertebral heights are intact. No fracture or subluxation. The disc heights are intact. Soft tissues unremarkable Impression: No acute abnormality. Reviewed, dictated and finalized at location P. MESS Impression: No acute abnormality.
--- OUTSIDE RECORDS SUMMARY | 2025-03-17 18:22 | XMS_ITS | Clinical Summary ---
Author Organization [facility] Address [address] [place] [address] Care Team Providers Care Superintendent Compressor Stations Name Role Phone Jeronimo Mazariegos MD Primary Care Provider [phone] Source Comments [facility],non-owned Affiliates and Associated Physician Practices is amultiple site organization consisting of ambulatory clinics and hospital sitesin [place], [place], [place] and [place]. This disclosure is being madepursuant to the Care Everywhere program and may not contain all information available regarding this patient. Last updated 18.[facility] Allergies Active Allergy Reactions Criticality Noted Date Comments Polyethylene Glycol Urticaria,Other Medium 11/27/2023 Patient reports breaking out in hives d/t colonscopy prep Medications * Be aware that medications may not be up to date on this document. Alwaysverify current medications with the patient. albuterol HFA (Proventil; Ventolin; Proair) 108 (90 Base) MCG/ACT inhaler Inhale 2 (two) puffs by mouth every 4 hours as needed for Shortness of Breath or Wheezing 4 Active Eliquis 5 MG tablet Take 1 (one) tablet by mouth 2 times daily 5 Active carvedilol (Coreg) 25 MG tablet Take 1 (one) tablet by mouth 2 times daily 4 Active metFORMIN ER 24hr (Glucophage XR) 500 MG tablet Take 2 (two) tablets by mouth daily with dinner 4 Active omeprazole (PriLOSEC) 20 MG capsule Take 1 (one) capsule by mouth 2 times daily Active Entresto 97-103 MG tablet Take 1 (one) tablet by mouth 2 times daily Active spironolactone (Aldactone) 25 MG tablet Take 1 (one) tablet by mouth once daily Active tamsulosin (Flomax) 0.4 MG capsule Take 1 (one) capsule by mouth once daily Active Active Problems Problem Noted Date Diagnosed Date Metabolic dysfunction-associ ated steatotic liver disease (MASLD) 05/07/2024 Overview (05/07/2024): 05/07/24 Fibroscan CAP 343, LSM 7.7 kPa Encounters Date Type Department Care Team Description 02/24/2025 Telephone [facility] - [address] [address] Ankita Mariano APRN-MUKESH Results 12/31/2024 3:00 PM CDT Office Visit [facility] - [address] [address] Da Rosas MD Swanson, Stephanie N, MACHINE LACER-WAREHOUSE SUPERVISOR 3RD SHIFT Elevated liver enzymes (Primary Dx); MetALD 12/31/2024 Travel from Last 3 Months Social History Tobacco Use Types Packs/Day Years Used Date Smoking Tobacco: Former Cigarettes 1 22 1 975 - 1996 Smokeless Tobacco: Never Tobacco Cessation:Counseling Given: Not Answered Alcohol Use Standard Drinks/Week Comments Yes 6 (1 standard drink = 0.6 oz pur e alcohol) Socially drinks beer Sex and Gender Information Value Date Recorded Sex Assigned at Not on file Legal Sex Male 11:39 AM CDT Gender Identity Not on file Sexual Orientation Not on file Last Filed Vital Signs Vital Sign Reading Time Taken Comments Blood Pressure 109/61 12/31/2024 2:27 PM CDT Pulse 72 12/31/2024 2:27 PM CDT Temperature 36.6 C (97.9 F) 12/31/2024 2:27 PM CDT Respiratory Rate - - Oxygen Saturation 97% 12/31/2024 2:27 PM CDT Inhaled Oxygen Concentration - - Weight 103 kg (227 lb) 12/31/2024 2:27 PM CDT Height 188 cm (6' 2) 12/31/2024 2:27 PM CDT Body Mass Index 29.15 12/31/2024 2:27 PM CDT Plan of Treatment Upcoming Encounters Date Type Department Care Team (Late st Contact Info) Description 01/01/2026 8:00 AM CDT Procedure visit [facility] - GI [address] [place] [address], [place] [phone] 01/01/2026 8:30 AM CDT Office Visit [facility] - [place] [address] [place] [phone] Ankita Mariano, MACHINE LACER-WAREHOUSE SUPERVISOR 3RD SHIFT [address] [place] [address] [facility] [place] [address] Health Maintenance Due Date Last Done Comments COLOGUARD (AGES 45-75) - COL ON CA SCREENING 1958 COLON MONITORING 1958 COLONOSCOPY - COLON CA SCREENING 1958 CT COLONOGRAPHY - COLON CA SCREENING 1960 Colorectal Cancer Screening 1958 FIT - COLON CA SCREENING 1958 FLEX SIG - COLON CA SCREENING 1958 LIPID TESTING 1958 DTAP/TDAP/TD VACCINES (1 - Tdap) 1977 PNEUMOCOCCAL VACCINE 50+ (1 of 1 - PCV) 2008 Respiratory Syncytial Virus (RSV) Vaccine Pt: or over 60 yrs (1 - Risk 50-74 years 1-dose series) 2008 ZOSTER VACCINE (1 of 2) 2008 AAA SCREENING 2023 DEPRESSION SCREENING 04/24/2024 COVID-19 VACCINE (3 - 2024-2 6 season) 2024 11/25/2020, 10/28/2020 INFLUENZA VACCINE (#1) 2024 SCREENING FOR DIABETES 05/07/2027 05/07/2024 HEPATITIS C SCREENING Completed 05/07/2024 HEPATITIS B [...] Author Medication Management General On track( 025 2:19 PM CDT) Karen Vidal RN Note: Expected end date: ongoing Interventions: Take all medications as prescribed Let your doctor know right away about any changes in your medications Make sure to request a refill of your medication at least one week prior to your last dose Procedures Procedure Name Priority Date/Time Associated Diagnosis Comments COMPREHENSIVE METABOLIC PANEL Routine 05/07/2024 2:09 PM PLATFORM SOFTWARE ENGINEER Elevated liver enzymes HEPATITIS C ANTIBODY Routine 05/07/2024 2:09 PM PLATFORM SOFTWARE ENGINEER Elevated liver enzymes from Last 3 Months or Most Recently Relevant to Health Maintenance Results * (ABNORMAL) COMPREHENSIVE METABOLIC PANEL (05/07/2024 2:09 PM PLATFORM SOFTWARE ENGINEER) BUN 13 7 - 26 mg/dL 05/07/2024 3:13 PM [facility] Creatinine 0.94 0.71 - 1.16 mg/dL 05/07/2024 3:13 PM [facility] Sodium 140 136 - 145 mmol/L 05/07/2024 3:13 PM [facility] Potassium 4.4 3.5 - 4.5 mmol/L 05/07/2024 3:13 PM [facility] Chloride 106 98 - 107 mmol/L 05/07/2024 3:13 PM [facility] CO2 25 22 - 29 mmol/L 05/07/2024 3:13 PM [facility] Glucose 118(H) 70 - 99 mg/dL 05/07/2024 3:13 PM [facility] Calcium 9.4 8.4 - 10.2 mg/dL 05/07/2024 3:13 PM [facility] Protein Total 7.1 6.0 - 8.3 g/dL 05/07/2024 3:13 PM [facility] Albumin 4.5 3.4 - 5.0 g/dL 05/07/2024 3:13 PM [facility] Bilirubin Total 0.6 0.2 - 1.2 mg/dL 05/07/2024 3:13 PM [facility] Alkaline Phosphatase 60 40 - 150 U/L 05/07/2024 3:13 PM [facility] ALT 57(H) 5 - 55 U/L 05/07/2024 3:13 PM [facility] AST 29 5 - 34 U/L 05/07/2024 3:13 PM [facility] Anion Gap 9 6 - 16 05/07/2024 3:13 PM [facility] BUN/Creatinine Ratio 14 7 - 23 05/07/2024 3:13 PM [facility] Osmolality Calculated 291 275 - 295 mOsm/kg 05/07/2024 3:13 PM [facility] Albumin/Globulin Ratio 1.7 1.1 - 2.3 05/07/2024 3:13 PM [facility] eGFR by CKD-EPI 90 >=90 mL/min/1.7 3 m2 05/07/2024 3:13 PM [facility] Blood BLOOD SPECIMEN / Unknown Lab Venipuncture / Unknown 05/07/2024 2:09 PM PLATFORM SOFTWARE ENGINEER 05/07/2024 2:48 PM [facility] Ankita Mariano MACHINE LACER-WAREHOUSE SUPERVISOR 3RD SHIFT LAB - CHEMISTRY ORD ERABLES Final Result [facility] [address] [place] [address], [facility] [phone] * HEPATITIS C ANTIBODY (05/07/2024 2:09 PM PLATFORM SOFTWARE ENGINEER) Hepatitis C Antibody Non-react markos Non-reac tive 05/07/2024 3:37 PM [facility] Comment:Hepatitis C Antibody screen indicates no serologic evidence of past or current infection with Hepatitis C Virus. Patients with unexplained liver disease who are immunocompromised or suspected of having acute Hepatitis C infection may benefit from Nucleic Acid Test (JENN) for Hepatitis C Viral RNA to confirm Hepatitis C status. Blood BLOOD SPECIMEN / Unknown Lab Venipuncture / Unknown 05/07/2024 2:09 PM PLATFORM SOFTWARE ENGINEER 05/07/2024 2:44 PM PLATFORM SOFTWARE ENGINEER Ankita Mariano MACHINE LACER-WAREHOUSE SUPERVISOR 3RD SHIFT LAB - CHEMISTRY ORD ERABLES Final Result [facility] [address] [place] [address], [facility] [phone] from Last 3 Months or Most Recently Relevant to Health Maintenance Insurance [facility] Care Teams Superintendent Compressor Stations Relationship Specialty Start Date End Date Jeronimo Mazariegos MD [address] [place] [address] PCP - General Internal Medicine 11/24/23
--- OUTSIDE RECORDS SUMMARY | 2025-03-17 18:22 | XMS_ITS | Clinical Summary ---
Author Organization [facility] Address [address] [place] [address] Care Team Providers Care Print Washer Name Role Phone Jeronimo Mazariegos MD Primary Care Provider [phone] Donnell Maxwell MD Unavailable [phone] Allergies No known active allergies Medications carvediloL [...] 4 (four) times a day 4 Active tamsulosin (FLOMAX) 0.4 mg extended release capsule TAKE 1 CAPSULE (0.4 MG) BY ORAL ROUTE ONCE DAILY 1/2 HOUR FOLLOWING THE SAME MEAL EACH DAY 4 Active sacubitriL-valsa rtan (Entresto) 97-103 mg tablet TAKE 1 TABLET BY MOUTH TWICE A DAY 60 tablet 11 5 Active Active Problems Problem Noted Date Diagnosed [...] PM CDT): Severe nonischemic cardiomyopathy, associated with [place] heart Association class 3 symptoms and left [...] Seng NEHEMIAH, Dayne KA, Bea ALATORRE III, Sharon RA, Mary LS, Kehinde AM, Karol G, Meli SC, Jesse DL, Dillon MA, Vanda HALEY, Mireya JEREZ, Cecy BRIAN, Ana CAN, Manny ALY, Flakito DÍAZ. ACC/AHA/HRS 2008 guidelines for device-based therapy of cardiac rhythm abnormalities: a report of the [place] College of Cardiology/[place] Heart Association Task Force on Practice Guidelines [...] Seng NEHEMIAH, Dayne KA, Bea ALATORRE III, Sharon RA, Mary LS, Kehinde AM, Karol G, Meli SC, Jesse CAMPOS, Dillon PA, Vanda HALEY, Mireya JEREZ, Cecy BRIAN, Ana CAN, Manny ALY, Flakito DÍAZ 2012 ACCF/AHA/HRS focused update incorporated into the ACCF/AHA/HRS 2008 guidelines for device-based therapy of cardiac rhythm abnormalities: a report of the [place] College of Cardiology Foundation/[place] Heart Association Task Force on Practice Guidelines and the Heart Rhythm Society. J Am Alexandro Cardiol 2013;61:e6-75. Class I: WHEELMAN is indicated for patients who have LVEF [...] Encounters Date Type Department Care Team Description 02/11/2025 [facility] Only [facility] [address] [place] [address] Julius Yoder MD Nonischemic congestive cardiomyopathy (HCC) (Primary Dx) 02/10/2025 10:45 AM CDT Ancillary Procedure [facility] [address] [place] [address] [address], [place] [address] Biventricular ICD (implantable cardioverter-defibrill ator) in place (Primary Dx); Nonischemic congestive cardiomyopathy (HCC) from Last 3 Months Surgical History Surgery Date Site/Laterality Comments VASECTOMY 04/24/1996 - 04/23/1997 HERNIA REPAIR 04/24/1986 - 04/23/1987 CARDIAC PACEMAKER PLACEMENT 02/01/2022 Medical History Medical History Date Comments Hx Other Medical 2013 Cervical spine surgery; Comments: ELU 12/31/2013 - Coronary artery disease Cardiomyopathy Arrhythmia CHF (congestive heart failure) (HCC) GERD [...] on file Legal Sex Male 9:19 AM PNP Gender Identity Not on file Sexual Orientation Not on file Last Filed Vital Signs Vital Sign Reading Time Taken Comments Blood Pressure 116/74 11/11/2024 8:03 AM CDT Pulse 63 11/11/2024 8:03 AM CDT Temperature 36.6 C (97.9 F) 08/11/2023 4:00 PM CDT Respiratory Rate 14 08/11/2023 4:00 PM CDT Oxygen Saturation 97% 11/11/2024 8:03 AM CDT Inhaled Oxygen Concentration - - Weight 102.5 kg (225 lb 14.4 oz) 11/11/2024 8:03 AM CDT Height 188 cm (6' 2) 11/11/2024 8:03 AM CDT Body Mass Index 29 11/11/2024 8:03 AM CDT Plan of Treatment Health Maintenance Due Date Last Done Comments Albumin Creatinine Ratio, Urine 1958 Colon Cancer Screening-Colonoscopy 1958 Depression Screening 1958 Hemoglobin A1C 1958 Prostate Cancer Screening-PSA 1958 eGFR 1958 Dilated Eye Exam 1958 Foot Exam 1958 Hepatitis B Screening 1976 Zoster Vaccine (1 of 2) 2008 Pneumococcal vaccine 65+ (2 of 2 - PPSV23, PCV20, or PCV21) 10/07/2015 08/12/2015 Abdominal Aortic Aneurysm (A AA) Screen 2023 Well Visit 65+ 2023 Fall Risk Assessment 08/10/2024 08/11/2023, 11/25/19 21 Influenza Vaccine (#1) 2024 Lipid Panel 11/11/2025 11/11/2024, 10/22, 07/12/2022, Additional history exists DTaP/Tdap/Td Vaccine (2 - Td or Tdap) 12/19/2028 12/19/2018 Hepatitis C Screening Completed 08/07/2012 Medical Devices Implanted Type Area Corporate Training Manager Device Identifier Shelf Expiration Date Model / Serial / Lot Medtronic Inc [id number] Cardiac Sil[place] Hf 2 Chamber Df4 Inline [facility] Is4 - [id number] - [id number] Implanted:Qty: 1 on 02/01/2021 by Julius Yoder MD at [facility] ICD Right: Chest Medtronic Inc [id number] 06/21/2022 [id number] / [id number] / Medtronic Cardiac Rhythm Mgmt 5076-45 Capsurefix Novus 6.2fr 2mm 45cm Bipolar Screw In Implantable - [id number] - [id number] Implanted:Qty: 1 on 02/01/2021 by Julius Yoder MD at [facility] Lead Medtronic Inc [id number] 11/24/2022 507 6-45 / [id number] / Medtronic Cardiac Rhythm Mgmt [id number] Sprint Quattro Secure S 55cm Df-4 Tripolar Screw Defibrillator - [id number] - [id number] Implanted:Qty: 1 on 02/01/2021 by Julius Yoder MD at [facility] Lead Medtronic Inc [id number] 11/25/2022 [id number] / [id number] / Medtronic Inc [id number] Lead Attain Stability Quad Mri Surescan Lv 88mm - [id number] - [id number] Implanted:Qty: 1 on 02/01/2021 by Julius Yoder MD at [facility] Lead Medtronic Inc [id number] 08/31/2022 [id number] / [id number] / Procedures Procedure Name Priority Date/Time Associated Diagnosis Comments DEVICE CHECK - REMOTE Routine 02/10/2025 8:45 AM CDT Nonischemic congestive cardiomyopathy (HCC) POCT LIPID PANEL Routine 11/11/2024 11:4 0 AM CDT Nonischemic congestive cardiomyopathy (HCC) SERUM HEPATITIS C AB Routine 08/07/2012 9:05 AM CDT from Last 3 Months or Most Recently Relevant to Health Maintenance Results * DEVICE CHECK - REMOTE (02/10/2025 8:45 AM CDT) Anatomical Region Laterality Modality Other Narrative 02/13/2025 8:48 AM CDT Table formatting from the original result was not included. BiV ICD CHECK (REMOTE) Patient ID: Fabricio Darnell is a 64 y.o. male. This patient received a Medtronic BiV ICD. They had a routine remote transmission on 02/10/2025 Device implant indications: Nonischemic cardiomyopathy, CHF, LBBB Interrogation of the patient's device demonstrates the following: Presenting EGM: A sensed Bi V paced @ 83 bpm Original Device Settings Right Atrium Right Ventricle Left Ventricle Sensitivity (mV) 0.3 mV 0.3 mV N/a mV Pacing Outputs 1.5 V @ 0.4 ms 2.0 V @ 0.4 ms 1.0 V @ 1.0 ms Testing Measurements Right Atrium Right Ventricle Left Ventricle Sensitivity (mV) 4.1 mV >20 mV Not done mV Impedence (Ohms) 380 ohms 399 ohms 380 ohms Pace Threshold 0.875 V @ 0.4 ms 0.875 V @ 0.4 ms off V @ ms Pacing % 29.1 % 92 % 92 % HV Lead Impedance N/A 75 ohms N/A Battery Status: 2.8 years to CURTIS, charge time 3.8 seconds. Episodes last 90 days/Comments: AF Roslyn 0 % No new ventricular events. NORMAL DEVICE FUNCTION PROGRAMMED MEDICATIONS: Anti-coagulant(s): Eliquis 5 mg twice a day Anti-arrhythmic(s): Coreg 25 mg twice a day PLAN: 1) Medtronic BiV ICD evaluation 2) Medtronic remote transmission scheduled in 3 months. 3) Programming appropriate for device settings Iesha Betancourt RN us Julius Yoder MD CV CARDIAC SERVICES PRO CEDURES Final Result * POCT lipid panel (11/11/2024 11:40 AM CDT) Cholesterol, POC 131 <200 MG/DL HDL, POC 51 >=40 mg/dL Triglycerides, POC 109 <=149 mg/dL LDL Cholesterol POC 58 <=129 mg/dL Chol/HDL Ratio, POC 1.1 NONE Non-HDL Cholesterol, POC 80 NONE mg/dL Cholesterol Total, POC 131 30 - 199 mg/dL Capillary blood 11/11/2024 1 1:40 AM CDT us Iesha Adkins NP POINT OF CARE TEST ORDERA BLES Final Result * Serum Hepatitis C ab (08/07/2012 9:05 AM CDT) HCV ab Negative NEG HISTORICAL RESULTS Serum 08/07/2012 9:05 AM CDT Narrative HISTORICAL RESULTS - 08/08/2012 5:33 AM CDT Interpretive Data If confirmation is required, call Laboratory Customer Service to request sample to be sent to [facility] for Hepatitis C Virus (HCV) RNA Detection and Quantitation by Real-Time Reverse Retail Product Demo Specialist-PCR (RT-PCR). Current interpretive data was last revised on 2011 us Cezar Grace MD LAB BLOOD ORDERABLES F inal Result Performing Organization Address City/State/[facility] Co de Phone Number HISTORICAL RESULTS from Last 3 Months or Most Recently Relevant to Health Maintenance Insurance [facility] Care Teams Print Washer Relationship Specialty Start Date End Date Jeronimo Mazariegos MD [address] [place] [address] PCP - General 12/31/13 Donnell Maxwell MD [address] [facility], [address] [address] Surgeon Ophthalmology 08/11/23
--- OUTSIDE RECORDS SUMMARY | 2025-03-17 18:22 | XMS_ITS | Clinical Summary ---
Author Organization [facility] Address [facility] [place] [address] Care Team Providers Care Vocational Rehab Consultant Name Role Phone Unavailable Primary Care Provider Unavailabl e Social History Tobacco Use Types Packs/Day Years Used Date Smoking Tobacco: Never Assessed Sex and Gender Information Value Date Recorded Sex Assigned at Not on file Legal Sex Male 12:03 AM CDT Gender Identity Not on file Sexual Orientation Not on file Plan of Treatment Health Maintenance Due Date Last Done Comments Colorectal Cancer Screening Colonoscopy (10 Years) 1958 Hepatitis C 1976 DTaP, Tdap and Td Vaccines ( 1 - Tdap) 1977 Pneumococcal Vaccine: 50+ Ye ars (1 of 1 - PCV) 2008 Zoster Vaccines (1 of 2) 2008 COVID-19 Vaccine ( - 2024-2 6 season) 2024 Influenza Adult (#1) 2025 RSV Immunization or 60+ Years (1 - 1-dose 75+ series) 2033 Hepatitis A Vaccines Aged Out No long er eligible based on patient's age to complete this topic Meningococcal B Vaccine Aged Out No l onger eligible based on patient's age to complete this topic Meningococcal Vaccine Aged Out No callie jaz eligible based on patient's age to complete this topic RSV Immunizations Under 20 Months Aged Out No longer eligible based on patient's age to complete this topic
== END 2025-03-17 16:08 | disposition home or self-care (01) ==
LOC: CHSIMG 16:09
PROVIDERS: PCP Internal Medicine; Visit Provider Nurse Practitioner Family
DX: R10.9 Unspecified abdominal pain (principal); M54.50 Low back pain, unspecified
CPT/HCPCS: 72100; 74018

== ENCOUNTER 2025-03-25 07:29 | Outpatient (CLI) | payer OTHER, SELFPAY ==
--- NOTE | ~2025-03-25 | CT_ITS ---
EXAMINATION: CT abdomen pelvis w con DATE: 03/25/2025 08:17 INDICATION: Abdominal pain. TECHNIQUE: Computed tomography (CT) of the abdomen and pelvis was performed with 100 mL Omnipaque 350 intravenous contrast. Automated exposure control and iterative reconstruction technique were employed. The dose-length product was 666.25 mGy-cm. COMPARISON: CT abdomen 10/12/2023 FINDINGS: The visualized portions of lung bases demonstrate mild atelectasis. No pleural effusion. There is left atrial and left ventricular enlargement of the heart. No pericardial effusion. There are pacer wires in right atrium, right ventricle, and coronary sinus. The liver, gallbladder, spleen, pancreas, adrenal glands, and kidneys are normal. There are bilateral inguinal hernias containing fat. The prostate is mildly enlarged. There are no dilated loops of bowel. The appendix is normal. There are no pathologically enlarged lymph nodes. There is no free intraperitoneal fluid. 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 There is mild lumbar spondylosis. IMPRESSION: 1. Bilateral inguinal hernias containing fat. Reviewed, dictated and finalized at location E. EFACTION SUPERVISOR
--- OUTSIDE RECORDS SUMMARY | 2025-03-25 07:36 | XMS_ITS | Clinical Summary ---
Author Organization [facility] Address [address] [place] [address] Care Team Providers Care Touch Up Worker Name Role Phone Jeronimo Mazariegos MD Primary Care Provider [phone] Source Comments [facility],non-owned Affiliates and Associated Physician Practices is amultiple site organization consisting of ambulatory clinics and hospital sitesin [place], [place], [place] and [place]. This disclosure is being madepursuant to the Care Everywhere program and may not contain all information available regarding this patient. Last updated 18.[facility] Allergies Active Allergy Reactions Criticality Noted Date [...] Type Department Care Team Description 02/24/2025 Telephone [facility] - [address] [address] Ankita Mariano APRN-STOCK HOLDER Results 12/31/2024 3:00 PM CDT Office Visit [facility] - [address] [address] Da Rosas MD Swanson, Stephanie N, SADDLE MECHANIC-STOCK HOLDER Elevated liver enzymes (Primary Dx); MetALD 12/31/2024 [...] Procedure visit [facility] [place] [address] [place] [address], [place] [id number] 01/01/2026 8:30 AM CDT Office Visit [facility] - [facility] [address] [place] [phone] Ankita Mariano, SADDLE MECHANIC-STOCK HOLDER [address] [place] [address] [address] [place] [address] Health Maintenance Due Date Last Done Comments [...] COMPREHENSIVE METABOLIC PANEL Routine 05/07/2024 2:09 PM MECHANICAL ENGINEERING LECTURER Elevated liver enzymes HEPATITIS C ANTIBODY Routine 05/07/2024 2:09 PM MECHANICAL ENGINEERING LECTURER Elevated liver enzymes from Last 3 Months or Most Recently Relevant to Health Maintenance Results * (ABNORMAL) COMPREHENSIVE METABOLIC PANEL (05/07/2024 2:09 PM MECHANICAL ENGINEERING LECTURER) BUN 13 7 - 26 mg/dL 05/07/2024 3:13 PM [facility] Creatinine 0.94 0.71 - 1.16 mg/dL 05/07/2024 3:13 PM [facility] Sodium 140 136 - 145 mmol/L 05/07/2024 3:13 PM [facility] Potassium 4.4 3.5 - 4.5 mmol/L 05/07/2024 3:13 PM [facility] Chloride 106 98 - 107 mmol/L 05/07/2024 3:13 PM [facility] CO2 25 22 - 29 mmol/L 05/07/2024 3:13 PM [facility] Glucose 118(H) 70 - 99 mg/dL 05/07/2024 3:13 PM [facility] Calcium 9.4 8.4 - 10.2 mg/dL 05/07/2024 3:13 PM [facility] Protein Total 7.1 6.0 - 8.3 g/dL 05/07/2024 3:13 PM [facility] Albumin 4.5 3.4 - 5.0 g/dL 05/07/2024 3:13 PM [facility] Bilirubin Total 0.6 0.2 - 1.2 mg/dL 05/07/2024 3:13 PM [facility] Alkaline Phosphatase 60 40 - 150 U/L 05/07/2024 3:13 PM [facility] ALT 57(H) 5 - 55 U/L 05/07/2024 3:13 PM [facility] AST 29 5 - 34 U/L 05/07/2024 3:13 PM [facility] Anion Gap 9 6 - 16 05/07/2024 3:13 PM [facility] BUN/Creatinine Ratio 14 7 - 23 05/07/2024 3:13 PM [facility] Osmolality Calculated 291 275 - 295 mOsm/kg 05/07/2024 3:13 PM [facility] Albumin/Globulin Ratio 1.7 1.1 - 2.3 05/07/2024 3:13 PM [facility] eGFR by CKD-EPI 90 >=90 mL/min/1.7 3 m2 05/07/2024 3:13 PM [facility] Blood BLOOD SPECIMEN / Unknown Lab Venipuncture / Unknown 05/07/2024 2:09 PM MECHANICAL ENGINEERING LECTURER 05/07/2024 2:48 PM [facility] Ankita Mariano SADDLE MECHANIC-STOCK HOLDER LAB - CHEMISTRY ORD ERABLES Final Result [facility] [address] [place] [address], [facility] [phone] * HEPATITIS C ANTIBODY (05/07/2024 2:09 PM MECHANICAL ENGINEERING LECTURER) Hepatitis C Antibody Non-react markos Non-reac tive 05/07/2024 3:37 PM [facility] Comment:Hepatitis C Antibody screen indicates no serologic evidence of past or current infection with Hepatitis C Virus. Patients with unexplained liver disease who are immunocompromised or suspected of having acute Hepatitis C infection may benefit from Nucleic Acid Test (JENN) for Hepatitis C Viral RNA to confirm Hepatitis C status. Blood BLOOD SPECIMEN / Unknown Lab Venipuncture / Unknown 05/07/2024 2:09 PM MECHANICAL ENGINEERING LECTURER 05/07/2024 2:44 PM MECHANICAL ENGINEERING LECTURER Ankita Mariano SADDLE MECHANIC-STOCK HOLDER LAB - CHEMISTRY ORD ERABLES Final Result [facility] [address] [place] [address], [facility] [phone] from Last 3 Months or Most Recently Relevant to Health Maintenance Insurance [facility] Care Teams Touch Up Worker Relationship Specialty Start Date End Date Jeronimo Mazariegos MD [address] [place] [address] PCP - General Internal Medicine 11/24/23
--- OUTSIDE RECORDS SUMMARY | 2025-03-25 07:36 | XMS_ITS | Clinical Summary ---
Author Organization [facility] Address [address] [place] [address] Care Team Providers Care Coding Machine Operator Name Role Phone Jeronimo Mazariegos MD Primary Care Provider [phone] Donnell Maxwell MD Unavailable [phone] Allergies No known active allergies Medications carvediloL [...] PM CDT): Severe nonischemic cardiomyopathy, associated with [place] heart Association class 3 symptoms and left [...] cardiac rhythm abnormalities: a report of the [place] College of Cardiology/[place] Heart Association Task Force on Practice Guidelines [...] cardiac rhythm abnormalities: a report of the [place] College of Cardiology Foundation/[place] Heart Association Task Force on Practice Guidelines and the Heart Rhythm Society. J Am Alexandro Cardiol 2013;61:e6-75. Class I: CASTING SORTER is indicated for patients who have LVEF [...] Team Description 02/11/2025 Orders Only [facility] [address] [place] [phone] Julius Yoder MD Nonischemic congestive cardiomyopathy (HCC) (Primary Dx) 02/10/2025 10:45 AM CDT Ancillary Procedure [facility] [address] [place] [address] [address], [place] [address] Biventricular ICD (implantable cardioverter-defibrill ator) [...] on file Legal Sex Male 9:19 AM BIOLOGY SPECIALIST Gender Identity Not on file Sexual Orientation [...] Completed 08/07/2012 Medical Devices Implanted Type Area Music Supervisor Device Identifier Shelf Expiration Date Model / Serial / Lot Medtronic Inc Denj9ik Cardiac [place] Hf 2 Chamber Df4 Inline [facility] Is4 - [id number] - [id number] Implanted:Qty: 1 on 02/01/2021 by Julius Yoder MD at [facility] ICD Right: Chest Medtronic Inc [id number] 06/21/2022 [id number] / [id number] / Medtronic Cardiac Rhythm Mgmt 5076-45 Capsurefix Novus 6.2fr 2mm 45cm Bipolar Screw In Implantable - [id number] - [id number] Implanted:Qty: 1 on 02/01/2021 by Julius Yoder MD at [facility] Lead Medtronic Inc [id number] 11/24/2022 507 6-45 / [id number] / Medtronic Cardiac Rhythm Mgmt [id number] Sprint Quattro Secure S 55cm Df-4 Tripolar Screw Defibrillator - [id number] - [id number] Implanted:Qty: 1 on 02/01/2021 by Julius Yoder MD at [facility] Lead Medtronic Inc [id number] 11/25/2022 [id number] / [id number] / Medtronic Inc [id number] Lead Attain Stability Quad Mri Surescan Lv 88mm - [id number] - [id number] Implanted:Qty: 1 on 02/01/2021 by Julius Yoder MD at [facility] Lead Medtronic Inc [id number] 08/31/2022 [id number] 888 / [id number] / Procedures Procedure Name Priority Date/Time [...] 3.8 seconds. Episodes last 90 days/Comments: AF Courtenay 0 % No new ventricular events. NORMAL [...] to request sample to be sent to [facility] for Hepatitis C Virus (HCV) RNA Detection and Quantitation by Real-Time Reverse Rivet Tester-PCR (RT-PCR). Current interpretive data was last revised on 2011 us Czear Grace MD LAB BLOOD ORDERABLES F inal Result Performing Organization Address City/State/[facility] Co de Phone Number HISTORICAL RESULTS from Last 3 Months or Most Recently Relevant to Health Maintenance Insurance [facility] CHOICE PLUS [facility] HMO/PPO Address: [address] [address] [place] [address] [facility] CHOICE PLUS [facility] HMO/PPO Address: [address] [address] [place] [address] MEDICARE [facility] CHOICE PLUS [facility] HMO/PPO Address: [address] [address] [place] [address] Care Teams Coding Machine Operator Relationship Specialty Start Date End Date Jeronimo Mazariegos MD [address] [place] [address] PCP - General 12/31/13 Donnell Maxwell MD [address] [facility], [address] [address] Surgeon Ophthalmology 08/11/23
--- OUTSIDE RECORDS SUMMARY | 2025-03-25 07:36 | XMS_ITS | Clinical Summary ---
Author Organization [facility] Address [facility] [place] [address] Care Team Providers Care Party Plan Selling Distributor Name Role Phone Unavailable Primary Care Provider [...]
[2025-03-25 07:57] LABS: Estimated Glomerular Filt Rate > 60
== END 2025-03-25 07:30 | disposition home or self-care (01) ==
PROVIDERS: PCP Internal Medicine; Visit Provider Nurse Practitioner Family
DX: R10.9 Unspecified abdominal pain (principal); K40.20 Bilateral inguinal hernia, without obstruction or gangrene, not specified as recurrent
CPT/HCPCS: 74177; Q9967

== ENCOUNTER 2025-04-07 08:23 | Outpatient (CLI) | payer OTHER, SELFPAY ==
--- NOTE | ~2025-04-07 | XR_ITS ---
EXAMINATION: XR hip RT min 2V, 04/07/2025 8:29 ANCILLARY SERVICES MANAGER THERAPY HISTORY: Osteonecrosis BL femoral heads COMPARISON: No comparisons available. Findings: No acute fracture or malalignment. Minimal increased density in the femoral head. No significant degenerative changes. Soft tissues unremarkable. Impression: No acute fracture or malalignment. Early osteonecrosis suspected. MRI suggested to assess Reviewed, dictated and finalized at location P. LLARY SERVICES MANAGER THERAPY Impression: No acute fracture or malalignment. Early osteonecrosis suspected. MRI suggested to assess
--- NOTE | ~2025-04-07 | XR_ITS ---
EXAMINATION: XR hip LT min 2V, 04/07/2025 8:29 FINISH GRINDER HISTORY: Osteonecrosis BL femoral heads COMPARISON: No comparisons available. Findings: No acute fracture or malalignment.Minimal increased density in the femoral head which may represent early osteonecrosis. No significant degenerative changes. Soft tissues unremarkable. Impression: Early osteonecrosis suspected. MRI is recommended to assess Reviewed, dictated and finalized at location P. SH GRINDER Impression: Early osteonecrosis suspected. MRI is recommended to assess
== END 2025-04-07 08:24 | disposition home or self-care (01) ==
LOC: CHSLAB 08:26
PROVIDERS: PCP Internal Medicine; Visit Provider Internal Medicine
DX: M87.852 Other osteonecrosis, left femur (principal); M87.851 Other osteonecrosis, right femur
CPT/HCPCS: 73502